=== PATIENT | male | born 1940 | race Caucasian/White ===

== ENCOUNTER 2016-09-15 15:28 | Emergency (ER) | payer MEDICARE ==
[~2016-09-15] VITALS: Ht 182.9 cm; Wt 81.6 kg
[~2016-09-15 15:28] MED LIST: /GLYB5TA OR; ACET65TA OR; AMLO5TAB PO; ASPI325T OR; CALCTAB41 PO; CHRO200C PO; CIPRHCOTIC AS; FAMO40TA2 OR; FERR324T5 OR; FISH5CAP PO; FOLI1TAB OR; GEMF600T OR; GLUC1000 OR; HYDR-3713 PO; IBUP200T45 PO; JANU100T PO; LANTINJ4 SC; LIDO1OIN2 TOP; LOPR50TA OR; METO25TA74 PO; OYST500T OR; SPIR25TA2 OR; TYLETAB14 PO; ZANT150T OR; [UNRECOGNIZED DRUG - CODE] PO; advil
[2016-09-15] MEDS ORDERED: GEMF600T (15:45)
[2016-09-15] MEDS ORDERED: ASPI1TAB PO (15:45)
[2016-09-15] MEDS ORDERED: ASPIRIN 325 MG TAB PO ONE (16:00)
[2016-09-15 16:03] LABS: EOS # 0.1 K/mm3 (0.0-0.50); EOS % 1.6 % (0.0-3.0); LARGE UNSTAINED CELL # 0.2 K/mm3 (0.0-0.4); LYMPH % 37.4 % (24.0-44.0); MEAN CORPUSCULAR HEMOGLOBIN 31.1 pg (27.0-33.0); MEAN CORPUSCULAR HGB CONC 34.8 g/dl (32.0-36.5); MEAN CORPUSCULAR VOLUME 89.4 fl (80.0-96.0); MONO # 0.3 K/mm3 (0.0-0.8); MONO % 5.1 % (0.0-5.0); NEUTROPHILS # 2.6 K/mm3 (1.8-7.7); NEUTROPHILS % 51.9 % (36.0-66.0); PLATELET COUNT, AUTOMATED 249 k/mm3 (150-450); RED CELL DISTRIBUTION WIDTH 12.5 % (11.5-14.5)
[2016-09-15 16:18] LABS: INR 0.94
[2016-09-15 16:27] LABS: ANION GAP 8 MEQ/L (8-16); BLOOD UREA NITROGEN 24 MG/DL (7-18); CALCIUM LEVEL 9.6 MG/DL (8.8-10.2); CARBON DIOXIDE LEVEL 25 MEQ/L (21-32); CHLORIDE LEVEL 102 MEQ/L (98-107); CREATININE FOR GFR 1.32 MG/DL (0.70-1.30); GLOMERULAR FILTRATION RATE 55.8 (>42); GLUCOSE, FASTING 209 MG/DL (83-110); POTASSIUM SERUM 4.1 MEQ/L (3.5-5.1); SODIUM LEVEL 135 MEQ/L (136-145)
--- NOTE | 2016-09-15 17:41 | REP ---
CHEST, TWO VIEWS: Two views of the chest are performed. There is no evidence of acute infiltrate. Heart is normal in size. There is calcification and tortuosity of the thoracic aorta. Mediastinal silhouette is unchanged. Multiple sternal wires are present. There are degenerative changes of the spine. IMPRESSION: No acute infiltrate. Signed by Ryley Hernandez MD 09/15/2016 08:06 P
[2016-09-15 23:13] VITALS: BP 146/71
--- NOTE | 2016-09-16 16:18 | ECGEPIP ---
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
== END 2016-09-15 23:17 | disposition home or self-care (01) ==
LOC: M ED 16:56
DX: R07.89 Other chest pain (principal); E10.9 Type 1 diabetes mellitus without complications; I10 Essential (primary) hypertension; Z95.1 Presence of aortocoronary bypass graft; Z79.899 Other long term (current) drug therapy; Z79.82 Long term (current) use of aspirin; Z79.4 Long term (current) use of insulin; Z79.84 Long term (current) use of oral hypoglycemic drugs; Z88.0 Allergy status to penicillin; Z88.8 Allergy status to other drugs, medicaments and biological substances

== ENCOUNTER → 2016-11-14 | Outpatient (REF) | payer MEDICARE ==
[~2016-11-14] MED LIST changes: +ASPI1TAB PO; +GEMF600T; +METO1TAB32 PO; -METO25TA74 PO
[2016-11-14 13:31] LABS: ALBUMIN 4.1 GM/DL (3.2-5.2); ALBUMIN/GLOBULIN RATIO 1.21 (1.00-1.93); ALKALINE PHOSPHATASE 56 U/L (45-117); ALT/SGPT 33 U/L (12-78); ANION GAP 8 MEQ/L (8-16); AST/SGOT 20 U/L (15-37); BILIRUBIN,TOTAL 0.4 MG/DL (0.2-1.0); BLOOD UREA NITROGEN 22 MG/DL (7-18); CARBON DIOXIDE LEVEL 26 MEQ/L (21-32); CHLORIDE LEVEL 102 MEQ/L (98-107); CREATININE FOR GFR 1.17 MG/DL (0.70-1.30); GLOMERULAR FILTRATION RATE > 60.0 (>42); GLUCOSE, FASTING 277 MG/DL (83-110); POTASSIUM SERUM 4.7 MEQ/L (3.5-5.1); SODIUM LEVEL 136 MEQ/L (136-145); TOTAL PROTEIN 7.5 GM/DL (6.4-8.2)
== END ==
LOC: M SFHCCLAY 09:13
PROVIDERS: ATTEND Family Medicine
DX: E11.51 Type 2 diabetes mellitus with diabetic peripheral angiopathy without gangrene (principal)
CPT/HCPCS: 80053; 83036; G0463

== ENCOUNTER → 2017-02-15 | Outpatient (REF) | payer MEDICARE ==
[2017-02-15 12:35] LABS: ALBUMIN 4.3 GM/DL (3.2-5.2); ALKALINE PHOSPHATASE 53 U/L (45-117); ALT/SGPT 38 U/L (12-78); ANION GAP 10 MEQ/L (8-16); AST/SGOT 24 U/L (15-37); BILIRUBIN,TOTAL 0.4 MG/DL (0.2-1.0); BLOOD UREA NITROGEN 23 MG/DL (7-18); CALCIUM LEVEL 10.1 MG/DL (8.8-10.2); CARBON DIOXIDE LEVEL 24 MEQ/L (21-32); CHLORIDE LEVEL 103 MEQ/L (98-107); CREATININE FOR GFR 1.17 MG/DL (0.70-1.30); GLOMERULAR FILTRATION RATE > 60.0 (>42); GLUCOSE, FASTING 142 MG/DL (83-110); POTASSIUM SERUM 4.1 MEQ/L (3.5-5.1); SODIUM LEVEL 137 MEQ/L (136-145); TOTAL PROTEIN 8.2 GM/DL (6.4-8.2)
== END ==
LOC: M SFHCCLAY 07:55
PROVIDERS: ATTEND Family Medicine
DX: E11.51 Type 2 diabetes mellitus with diabetic peripheral angiopathy without gangrene (principal)
CPT/HCPCS: 80053; 83036; G0463

== ENCOUNTER → 2017-03-15 | Outpatient (REF) | payer MEDICARE ==
[2017-03-15 18:11] LABS: ALBUMIN 4.2 GM/DL (3.2-5.2); ALBUMIN/GLOBULIN RATIO 1.14 (1.00-1.93); BILIRUBIN,TOTAL 0.5 MG/DL (0.2-1.0); CREATININE FOR GFR 1.25 MG/DL (0.70-1.30); GLOMERULAR FILTRATION RATE 59.5 (>42); POTASSIUM SERUM 4.3 MEQ/L (3.5-5.1); TOTAL PROTEIN 7.9 GM/DL (6.4-8.2)
== END ==
LOC: M LAB REF 17:14
PROVIDERS: ATTEND Internal Medicine Cardiovascular Disease
DX: I25.10 Atherosclerotic heart disease of native coronary artery without angina pectoris (principal); E78.5 Hyperlipidemia, unspecified

== ENCOUNTER → 2017-05-18 | Outpatient (REF) | payer MEDICARE ==
[2017-05-18 11:48] LABS: ANION GAP 9 MEQ/L (8-16); BLOOD UREA NITROGEN 20 MG/DL (7-18); CALCIUM LEVEL 10.1 MG/DL (8.8-10.2); CARBON DIOXIDE LEVEL 24 MEQ/L (21-32); CHLORIDE LEVEL 104 MEQ/L (98-107); CREATININE FOR GFR 1.14 MG/DL (0.70-1.30); GLOMERULAR FILTRATION RATE > 60.0 (>42); GLUCOSE, FASTING 166 MG/DL (83-110); POTASSIUM SERUM 4.2 MEQ/L (3.5-5.1); SODIUM LEVEL 137 MEQ/L (136-145)
[2017-05-18 12:17] LABS: ESTIMATED AVERAGE GLUCOSE 183 MG/DL (60-110)
== END ==
LOC: M SFHCCLAY 08:02
DX: E11.51 Type 2 diabetes mellitus with diabetic peripheral angiopathy without gangrene (principal)
CPT/HCPCS: 83036

== ENCOUNTER → 2017-11-13 | Outpatient (REF) | payer MEDICARE ==
[2017-11-13 16:33] LABS: ANION GAP 8 MEQ/L (8-16); BLOOD UREA NITROGEN 32 MG/DL (7-18); CALCIUM LEVEL 9.9 MG/DL (8.8-10.2); CARBON DIOXIDE LEVEL 23 MEQ/L (21-32); CHLORIDE LEVEL 107 MEQ/L (98-107); CREATININE FOR GFR 1.41 MG/DL (0.70-1.30); GLOMERULAR FILTRATION RATE 51.6 (>42); GLUCOSE, FASTING 169 MG/DL (70-100); POTASSIUM SERUM 4.8 MEQ/L (3.5-5.1); SODIUM LEVEL 138 MEQ/L (136-145)
[2017-11-13 16:42] LABS: ESTIMATED AVERAGE GLUCOSE 180 MG/DL (60-110); HEMOGLOBIN A1c 7.9 %
== END ==
LOC: M SFHCCLAY 14:07
DX: E11.51 Type 2 diabetes mellitus with diabetic peripheral angiopathy without gangrene (principal)
CPT/HCPCS: 83036

== ENCOUNTER → 2018-02-25 | Outpatient (REF) | payer MEDICARE ==
[2018-02-25 13:13] LABS: ESTIMATED AVERAGE GLUCOSE 160 MG/DL (60-110); HEMOGLOBIN A1c 7.2 %
[2018-02-25 13:14] LABS: ALBUMIN 4.3 GM/DL (3.2-5.2); ALBUMIN/GLOBULIN RATIO 1.16 (1.00-1.93); ALKALINE PHOSPHATASE 60 U/L (45-117); ALT/SGPT 39 U/L (12-78); ANION GAP 8 MEQ/L (8-16); AST/SGOT 24 U/L (7-37); BILIRUBIN,TOTAL 0.4 MG/DL (0.2-1.0); BLOOD UREA NITROGEN 26 MG/DL (7-18); CALCIUM LEVEL 9.9 MG/DL (8.8-10.2); CARBON DIOXIDE LEVEL 26 MEQ/L (21-32); CHLORIDE LEVEL 101 MEQ/L (98-107); GLOMERULAR FILTRATION RATE > 60.0 (>42); GLUCOSE, FASTING 148 MG/DL (70-100); POTASSIUM SERUM 4.9 MEQ/L (3.5-5.1); SODIUM LEVEL 135 MEQ/L (136-145)
== END ==
LOC: M SFHCCLAY 09:19
DX: E11.51 Type 2 diabetes mellitus with diabetic peripheral angiopathy without gangrene (principal)
CPT/HCPCS: 80053

== ENCOUNTER → 2018-05-08 | Outpatient (REF) | payer MEDICARE ==
[~2018-05-08] MED LIST changes: +AMLO10TA5 PO; +BACT800T5 PO; -CHRO200C PO; +CHRO200C2 PO; +DOXY100T PO; -GEMF600T; +GEMF600T5 PO; +GLIP5TAB8 PO; +METF-877 PO; +METO25TA4 PO; +OMEG10002 PO; +PERCOCET PO; +SPIR-10 PO; +VITMTA PO; +[UNRECOGNIZED DRUG - CODE] PO; -[UNRECOGNIZED DRUG - CODE] PO
[2018-05-09 12:05] LABS: HEMATOCRIT 39.7 % (42.0-52.0); HEMOGLOBIN 13.5 g/dl (13.5-17.5); MEAN CORPUSCULAR HEMOGLOBIN 30.2 pg (27.0-33.0); MEAN CORPUSCULAR VOLUME 88.8 fl (80.0-96.0); PLATELET COUNT, AUTOMATED 373 10^3/uL (150-450); RED BLOOD COUNT 4.47 10^6/uL (4.30-6.10); WHITE BLOOD COUNT 12.2 10^3/uL (4.0-10.0)
[2018-05-09 12:21] LABS: ALBUMIN 3.7 GM/DL (3.2-5.2); ALT/SGPT 38 U/L (12-78); BILIRUBIN,TOTAL 0.3 MG/DL (0.2-1.0); BLOOD UREA NITROGEN 22 MG/DL (7-18); CALCIUM LEVEL 9.8 MG/DL (8.8-10.2); CARBON DIOXIDE LEVEL 24 MEQ/L (21-32); CHLORIDE LEVEL 100 MEQ/L (98-107); CREATININE FOR GFR 1.23 MG/DL (0.70-1.30); GLOMERULAR FILTRATION RATE > 60.0 (>42); GLUCOSE, FASTING 293 MG/DL (70-100); POTASSIUM SERUM 4.5 MEQ/L (3.5-5.1); SODIUM LEVEL 132 MEQ/L (136-145); TOTAL PROTEIN 8.2 GM/DL (6.4-8.2); URIC ACID 3.8 MG/DL (3.5-7.2)
[2018-05-09 12:34] LABS: ERYTHROCYTE SEDIMENTATION RATE 63 mm/hr (0-20)
[2018-05-09 13:05] LABS: ATYPICAL LYMPH 16 % (0-5); EOSINOPHILS 1 % (0-5); LYMPHOCYTES 7 % (16-52); MONOCYTES 7 % (0-8); NEUTROPHILS 65 % (35-75); PLATELET ESTIMATE NORMAL (NORMAL)
== END ==
LOC: M SFHCCLAY 14:01
PROVIDERS: ATTEND Family Medicine
DX: L03.119 Cellulitis of unspecified part of limb (principal)
CPT/HCPCS: 80053; 84550; 85025; 85652; G0463

== ENCOUNTER 2018-05-13 14:56 | Inpatient (IN) | payer MEDICARE ==
[~2018-05-13] VITALS: Ht 182.9 cm; Wt 73.0 kg
[~2018-05-13 14:56] MED LIST changes: -AMLO10TA5 PO; -BACT800T5 PO; -GLIP5TAB8 PO; -METF-877 PO; -METO25TA4 PO; -OMEG10002 PO; -SPIR-10 PO; -VITMTA PO
[2018-05-13 16:15] VITALS: BP 140/69
[2018-05-13] MEDS ORDERED: AMLO10TA5 PO (16:47)
[2018-05-13] MEDS ORDERED: SPIR-10 PO (16:47)
[2018-05-13] MEDS ORDERED: BACT800T5 PO (16:47)
[2018-05-13] MEDS ORDERED: METF-877 PO (16:47)
[2018-05-13] MEDS ORDERED: GLIP5TAB8 PO ×2 (16:47)
[2018-05-13] MEDS ORDERED: METO25TA4 PO (16:50)
[2018-05-13] MEDS ORDERED: OMEG10002 PO (16:51)
[2018-05-13] MEDS ORDERED: VITMTA PO (16:51)
[2018-05-13] MEDS ORDERED: DEXTROSE 50% 50 ML SYRINGE IV PRN (17:15)
[2018-05-13] MEDS ORDERED: VANCOMYCIN HCL 1,000 MG, VIAL MATE ADAPTER 1 EACH in D5W 250 ML IV ONE (17:15)
[2018-05-13] MEDS ORDERED: GLUCOSE 4 GM CHEW TABLET PO PRN (17:15)
[2018-05-13] MEDS ORDERED: GLUCAGON FOR INJ 1 MG VIAL (J1610) SC PRN (17:15)
[2018-05-13 18:22] LABS: BASO % 0.2 % (0.0-1.0); EOS # 0.1 10^3/uL (0.0-0.50); EOS % 0.7 % (0.0-3.0); HEMATOCRIT 38.4 % (42.0-52.0); HEMOGLOBIN 13.3 g/dl (13.5-17.5); LYMPH # 1.1 10^3/uL (1.5-4.5); LYMPH % 11.8 % (24.0-44.0); MEAN CORPUSCULAR HGB CONC 34.6 g/dl (32.0-36.5); MEAN CORPUSCULAR VOLUME 86.5 fl (80.0-96.0); MONO # 0.6 10^3/uL (0.0-0.8); MONO % 6.2 % (0.0-5.0); NEUTROPHILS # 7.8 10^3/uL (1.8-7.7); NEUTROPHILS % 80.6 % (36.0-66.0); PLATELET COUNT, AUTOMATED 405 10^3/uL (150-450); RED BLOOD COUNT 4.44 10^6/uL (4.30-6.10); WHITE BLOOD COUNT 9.7 10^3/uL (4.0-10.0)
[2018-05-13 18:32] LABS: CALCIUM LEVEL 10.6 MG/DL (8.8-10.2); CREATININE FOR GFR 1.32 MG/DL (0.70-1.30); GLOMERULAR FILTRATION RATE 55.7 (>42); POTASSIUM SERUM 4.6 MEQ/L (3.5-5.1)
[2018-05-13] MEDS: HumaLOG INSULIN (NovoLOG) PER UNIT SC SCH ×2 (18:34→21:02)
--- NOTE | 2018-05-13 18:51 | REP ---
Left foot series: Four views. History: Diabetic wound. Findings: Four views of the left foot show overall normal mineralization. There is fairly extensive distal arterial vascular calcification in the forefoot. There is soft tissue irregularity at the medial aspect of the great toe adjacent to the proximal phalanx. No soft tissue gas is seen. No acute bony erosive change is noted. Overlying dressing artifact is seen. Impression: Area of soft tissue irregularity and thinning at the medial aspect of the proximal phalanx of great toe may be an ulcer. Vascular calcification. No acute bony abnormality. Electronically Signed by Kolton Leahy MD 05/13/2018 07:50 P
--- NOTE | 2018-05-13 20:06 | HPEPDOC ---
General Date of Admission May 13, 2018 at 16:01 Primary Care Physician: Mohinder Orr Attending Physician: SVITLANA HERNANDEZ MD Chief Complaint The patient is a 77-year-old male admitted with a reason for visit of Diabetic Foot Infection. Source: Patient, Family, RN notes reviewed, Old records Exam Limitations: No limitations History of Present Illness Mr. Yoo is a 77-year-old male who presents to [facility] as a direct admission from podiatry's office for left hallux diabetic wound infection. Patient is accompanied by and daughter. 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 Patient states that approximately 3 weeks ago he possibly stubbed his left great toe on tach. He removed his socks and slippers at that time and noticed some blood on his upper. He presented to emergency department in [place] and was treated for possible gout infection as his left toe was swollen and red. He was informed that if his symptoms were no better in 3 days to follow-up with his primary care provider which he did. His daughter evaluated his rate and swollen left toe joint around ' and suggested that he follow-up with his primary care provider. He did so and received an oral antibiotic on 05/08/2018, Bactrim twice daily. His daughter continue to evaluate his left toe and she noted on yesterday that there was about a quarter-sized open wound on the lateral aspect of his left great toe. She also noted a black spot in the center of the wound. It was never malodorous. She suggested that he follow-up with his primary care provider and he stated that he had appointment the next day. Patient presented to his primary care provider in 05/13/2018 and was recommended to have an immediate visit with podiatry which was controlled for today. Patient followed up with podiatry and was encouraged to present to the hospital for further evaluation and treatment. Patient is aware that he may require an amputation. Patient states that he had a quadruple bypass CABG procedure in 2011. He presented to his primary care provider at that time with some shortness of breath and was subsequently evaluated by cardiology. Underwent a cardiac catheterization with subsequent open heart surgery. Patient follows with local residential program manager with most recent stress testing done just over a year ago. Patient is not aware of any lung disease. He does have a history of working in a [employer] and in the [employer]. Prior to his wound on the left toe patient had no difficulty with ambulation and is able to walk up and down a flight of stairs without shortness of breath or walk around the grocery store without developing shortness of breath. He does not use any assistive devices. He makes urine without difficulty. Hospitalist was consulted at the request of podiatry to manage patient's comorbidities. Home Medications Scheduled (Metformin Hydrochloride) 1,000 Mg Tab, 1,000 MG PO BID, (Reported) Amlodipine Besylate (Amlodipine Besylate) 10 Mg Tab, 10 MG PO DAILY, (Reported) Arginine (l-Arginine) 1,000 Mg Tab, 1,000 MG PO TID, (Reported) Aspirin (Aspirin 81) 81 Mg Tab, 81 MG PO DAILY, (Reported) Gemfibrozil (Gemfibrozil) 600 Mg Tab, 600 MG PO BID, (Reported) Glipizide (Glipizide) 5 Mg Tab, 10 MG PO QAM, (Reported) Glipizide (Glipizide) 5 Mg Tab, 5 MG PO QPM, (Reported) Insulin Glargine (Lantus Solostar) 100 Unit/Ml Inj, 22 UNITS SC QPM, (Reported) Metoprolol Tartrate (Metoprolol Tartrate) 25 Mg Tab, 25 MG PO DAILY, (Reported) Multivitamins *[facility] STOCKED* (Thera M Plus *[facility] STOCKED*) 1 Tab Tab, 1 TAB PO DAILY, (Reported) [place] 3 Polyunsat Fatty Acids ([place]-3 1000 mg) 1 Cap Cap, 1 CAP PO DAILY, (Reported) Spironolactone (Spironolactone) 25 Mg Tab, 25 MG PO DAILY, (Reported) Trimethoprim/Sulfamethoxazole (Bactrim Ds 800-160 mg) 1 Tab Tab, 1 TAB PO BID, (Reported) Scheduled PRN Ibuprofen (Ibu-200) 200 Mg Tab, 600 MG PO BID PRN for PAIN, (Reported) Allergies Coded Allergies: Penicillins (Verified Allergy, Intermediate, RASH, 04/13/15) Penicillins Cross Reactors (Verified Allergy, Unknown, 04/13/15) Atorvastatin (Verified Adverse Reaction, Intermediate, LEG PAIN, 04/13/15) Past Medical History Medical History 1. Diabetes mellitus 2. Hypertension 3. Dyslipidemia 4. Grade 1 diastolic dysfunction 5. History of melanoma 6. History of basal cell carcinoma with metastasis to lymph nodes 7. History of Crohn's a carcinoma 8. Coronary artery disease status post coronary artery bypass grafting Surgical History 1. Right cheek lesion excision 2. Skin forearm lesion excision 3. Quadruple coronary artery bypass graft 4. Back surgeries 5. Bilateral cataracts Family History Father is at age 92 from unknown underlying lung disease. Mother is at age 60 from complications of tobacco and alcohol dependence. Patient has 6 siblings, all from different fathers. Patient is unaware of any significant medical history. Social History * Smoker: Denies Alcohol: Denies Patient lives independently with his of 60 years. They have 4 adult daughters who are all alive and healthy. There are no pets in the home. Patient does not drink alcohol. Patient does not use illicit drugs. Patient is a former tobacco user. He started smoking at age 12 and quit in 1968. He smoked anywhere from 1-1-1/2 packs per day. He was a smoked a pipe and cigars. Patient previously worked in a [employer] and in the [employer]. Review of Systems Constitutional: Denies: Chills, Fever, Night Sweats, Weakness, Weight Loss Eyes: Denies: Vision change ENT: Denies: Head Aches, Dysphagia, Sinus Congestion, Post Nasal Drip, Sore Throat, Epistaxis Skin: Reports: Lesions (left hallux); Denies: Rash, Bruising Pulmonary: Denies: Dyspnea, Cough, Pleuritic Chest Pain Cardiovascular: Denies: Chest Pain, Palpitations, Orthopnea, Paroxysmal Noc. Dyspnea, Edema, Lt Headedness Gastrointestinal: Denies: Nausea, Vomiting, Abdominal Pain, Diarrhea, Constipation, Melena, Hematochezia Genitourinary: Denies: Dysuria, Frequency, Incontinence, Hematuria Hematologic: Denies: Bruising, Bleeding Excessively Endocrine: Denies: Polydipsia, Polyphagia Musculoskeletal: Denies: Neck Pain, Back Pain, Joint Pain, Muscle Pain Neurological: Denies: Weakness, Numbness Physical Examination General Exam: Positive: Alert, Cooperative, No Acute Distress Eye Exam: Positive: PERRLA, Conjunctiva & lids normal, EOMI; Negative: Sclera icteric, Ptosis ENT Exam: Positive: Atraumatic, Mucous membr. moist/pink, Pharynx Normal, Tongue Midline, Nares Patent; Negative: Pharyngeal Edema Neck Exam: Positive: Supple, +2 carotid pulse wo bruit; Negative: JVD, thyromegaly, Lymphadenopathy Chest Exam: Positive: Clear to auscultation, Normal air movement; Negative: Rales, Rhonchi, Wheezing, Diminished Heart Exam: Positive: Rate Normal, Bradycardic, Regular Rhythm, Normal S1, Norm al S2; Negative: Gallops, Murmurs, Rubs Abdomen Exam: Positive: Normal bowel sounds, Soft; Negative: Tenderness, Hepatospenomegaly, Mass, Hernia Extremity Exam: Positive: Normal pulses, Other (approximately dime-sized stage III wound ulcer noted on the anterior/lateral portion of the left hallux with surrounding edema and blood pooling with skin sloughing. There does appear to be granulation tissue in the wound bed. No current discharge or bleeding is noted.); Negative: Clubbing, Cyanosis, Edema, Tenderness, Swelling Skin Exam: Positive: Lesion (petechia surrounding and extending up onto the left foot) Neuro Exam: Positive: Normal Speech, Cranial Nerves 3-12 NL Psych Exam: Positive: Oriented x 3 Other physical findings Left complete foot x-ray on 05/13/2018 - soft tissue irregularity and thinning at the medial aspect of the proximal falx of the great toe. Vascular calcification. No acute bony abnormality. Vital Signs Vital Signs Date Time Temp Pulse Resp B/P (MAP) Pulse Ox O2 Delivery O2 Flow Rate FiO2 05/13/18 16:15 97.5 76 18 140/69 (92) 97 Room Air Laboratory Data Labs 24H Laboratory Tests 2 05/13/18 17:39: Bedside Glucose (Misc Panel) 228H 05/13/18 17:59: Immature Granulocyte % (Auto) 0.5, White Blood Count 9.7, Red Blood Count 4.44, Hemoglobin 13.3L, Hematocrit 38.4L, Mean Corpuscular Volume 86.5, Mean Corpusc ular Hemoglobin 30.0, Mean Corpuscular Hemoglobin Concent 34.6, Red Cell Distribution Width 11.4L, Platelet Count 405, Neutrophils (%) (Auto) 80.6H, Lymphocytes (%) (Auto) 11.8L, Monocytes (%) (Auto) 6.2H, Eosinophils (%) (Auto) 0.7, Basophils (%) (Auto) 0.2, Neutrophils # (Auto) 7.8H, Lymphocytes # (Auto) 1.1L, Monocytes # (Auto) 0.6, Eosinophils # (Auto) 0.1, Basophils # (Auto) 0.0, Nucleated Red Blood Cells % (auto) 0.0, Anion Gap 8, Glomerular Filtration Rate 55.7, Blood Urea Nitrogen 20H, Creatinine 1.32H, Sodium Level 129L, Potassium Level 4.6, Chloride Level 96L, Carbon Dioxide Level 25, Calcium Level 10.6H, C- Reactive Protein, Quantitative 5.39H 05/13/18 18:00: Erythrocyte Sedimentation Rate 44H CBC/BMP Laboratory Tests 05/13/18 17:59 Red Blood Count 4.44, Mean Corpuscular Volume 86.5, Mean Corpuscular Hemoglobin 30.0, Mean Corpuscular Hemoglobin Concent 34.6, Red Cell Distribution Width 11.4 L, Neutrophils (%) (Auto) 80.6 H, Lymphocytes (%) (Auto) 11.8 L, Monocytes (%) (Auto) 6.2 H, Eosinophils (%) (Auto) 0.7, Basophils (%) (Auto) 0.2, Neutrophils # (Auto) 7.8 H, Lymphocytes # (Auto) 1.1 L, Monocytes # (Auto) 0.6, Eosinophils # (Auto) 0.1, Basophils # (Auto) 0.0, Calcium Level 10.6 H Microbiology Microbiology 05/13/18 Blood Culture, Received Pending Plan / VTE VTE Prophylaxis Ordered?: Yes (TEDs, sequentials, knee-high compression) Plan Plan 1. Diabetic wound ulcer: Podiatry consulted. Aztreonam and vancomycin. Patient has penicillin allergy. Pharmacy to renally dose antibiotics. MRSA screen ordered. Left foot x-ray reveals possible ulcer. Wound cultures were obtained in switchboard manager's office. Blood culture pending. ESR and CRP ordered with both being elevated. Daily CRPs ordered. No white count noted. Patient is afebrile. Tylenol as needed for pain. 2. Renal insufficiency: Could be secondary to dehydration. Holding nephrotoxic agents at this time. Monitor daily. 3. Hypercalcemia: Incidentally noted on labs. Has previously been normal. 4. Hyponatremia: Serum and urine osmolality ordered. 5. Hypertension: Continue amlodipine and metoprolol. Will hold spironolactone due to renal insufficiency. 6. Diabetes mellitus: Continue Levemir 22 units subcutaneous every afternoon, fingersticks before meals and at bedtime, hypoglycemic protocol, and consistent carbohydrate diet. Holding glipizide and metformin. 7. Coronary artery disease status post coronary artery bypass grafting: Holding aspirin. 8. Dyslipidemia: Holding gemfibrozil. Disposition Admit: Medical surgical unit Anticipated hospitalization: 2 nights Attending: Dr. Francisco Diet: Continue Current (consistent carbohydrate) Activity: Continue Current Medications: Start Antibiotics (vancomycin 1,000 mg, aztreonam 1 g IV every 8 hours) Diagnostics: Check Labs, Repeat Labs in AM, Obtain Cultures (blood cultures), Xrays (left foot x-ray) Anticipated Discharge: Home Attending Note Attending Note I have both independently examined this patient as well as reviewed the H and P. I have discussed in detail w the resident the findings and the plan of treatment as documented in the residents note. MICHAEL GRESHAM DO May 13, 2018 20:06 SVITLANA HERNANDEZ MD May 15, 2018 21:58
--- NOTE | 2018-05-13 20:42 | ECGEPIP ---
Stationary ECG Study [facility] Test Date: 2018-05-13 Pat Name: EYAD REED Department: Room: [place] [address] Gender: M Internal Sales Engineer: GARRISON : 1940 Requested By: MICHAEL GRESHAM Order Number: [id number] Reading MD: Roosevelt Horne Measurements Intervals [place] Rate: 74 P: 56 NC: 171 QRS: 40 QRSD: 77 T: 0 QT: 213 QTc: 236 Interpretive Statements SINUS RHYTHM Baseline noise and baseline wander. Poor R wave progression. NONSPECIFIC ST & T-WAVE ABNORMALITY Electronically Signed On 05-13-2018 20:42:11 EST by Roosevelt Horne
[2018-05-13] MEDS: AZTREONAM 1 GM in D5W MINI-BAG PLUS 50 ML IV SCH (20:57)
[2018-05-13] MEDS ORDERED: LEVEMIR (INSULIN DETEMIR) 1 UNITS/0.01ML SC SCH (21:00)
[2018-05-13 21:09] LABS: PTH INTACT 13.8 PG/ML (18.5-88.0)
--- NOTE | 2018-05-13 21:45 | PHACANCOPD ---
PHARMACY VANCOMYCIN DOSING Pt Demographics Demographics Patient Age:77 , Weight:81.700 , Gender: male Events Past 24 Hours Events Past 24 Hours: NO: Dialysis, Diuretic Therapy, Change in CrCl, Fever, Elevation in WBC, Pending Diagnostics, Pending Procedures, Other Vancomycin Vancomycin indication: DIABETIC FOOT Vancomycin Target Ranges: 10-20 mcg/ml Vancomycin Load Y/N: No Load Dose Date Time Vancomycin Load Dose: 1GM Date: 05/13/18 Time: 19:00 Vancomycin Dose Date: 05/14/18. Current Vancomycin Dose: [1GM IV Q12H (05:00)] Intermittent Dosing?: No Labs Labs Laboratory Tests 05/13/18 17:59 Red Blood Count 4.44, Mean Corpuscular Volume 86.5, Mean Corpuscular Hemoglobin 30.0, Mean Corpuscular Hemoglobin Concent 34.6, Red Cell Distribution Width 11.4 L, Neutrophils (%) (Auto) 80.6 H, Lymphocytes (%) (Auto) 11.8 L, Monocytes (%) (Auto) 6.2 H, Eosinophils (%) (Auto) 0.7, Basophils (%) (Auto) 0.2, Neutrophils # (Auto) 7.8 H, Lymphocytes # (Auto) 1.1 L, Monocytes # (Auto) 0.6, Eosinophils # (Auto) 0.1, Basophils # (Auto) 0.0, Calcium Level 10.6 H Micro Microbiology 05/13/18 Blood Culture, Received Pending Creatinine Clearance Date:05/13/18. Creatinine Clearance: [50]. Assessment and Plan Maintaining Current Dose?: Yes Reason for dose change: Other Pharmacist Note Pharmacist Note Date: 05/13/18. PharmD note: VANCO 1GM IV x1 per ATTENDING RESIDENT. WE WILL CO NTINUE WITH VANCO 1GM IV Q12H STARTING AT 5AM 8 VANCO TROUGH WHEN AT [facility] May 13, 2018 21:45
[2018-05-13 22:00] VITALS: BP 128/69
[2018-05-14] MEDS: AZTREONAM 1 GM in D5W MINI-BAG PLUS 50 ML IV SCH ×3 (04:26→20:10)
[2018-05-14] MEDS: VANCOMYCIN HCL 1,000 MG, VIAL MATE ADAPTER 1 EACH in D5W 250 ML IV SCH ×2 (05:09→17:28)
[2018-05-14 06:00] VITALS: BP 116/60
[2018-05-14 06:44] LABS: BASO % 0.3 % (0.0-1.0); EOS # 0.1 10^3/uL (0.0-0.50); EOS % 1.2 % (0.0-3.0); HEMATOCRIT 35.2 % (42.0-52.0); HEMOGLOBIN 12.1 g/dl (13.5-17.5); LYMPH # 1.4 10^3/uL (1.5-4.5); MEAN CORPUSCULAR HEMOGLOBIN 29.9 pg (27.0-33.0); MEAN CORPUSCULAR HGB CONC 34.4 g/dl (32.0-36.5); MEAN CORPUSCULAR VOLUME 86.9 fl (80.0-96.0); MONO # 0.6 10^3/uL (0.0-0.8); MONO % 8.2 % (0.0-5.0); NEUTROPHILS # 5.3 10^3/uL (1.8-7.7); NEUTROPHILS % 70.6 % (36.0-66.0); PLATELET COUNT, AUTOMATED 387 10^3/uL (150-450); RED BLOOD COUNT 4.05 10^6/uL (4.30-6.10); WHITE BLOOD COUNT 7.4 10^3/uL (4.0-10.0)
[2018-05-14 07:04] LABS: BLOOD UREA NITROGEN 17 MG/DL (7-18); C REACTIVE PROTEIN QUANTITATIV 4.48 MG/DL (0.00-0.30); CALCIUM LEVEL 9.6 MG/DL (8.8-10.2); CARBON DIOXIDE LEVEL 25 MEQ/L (21-32); CHLORIDE LEVEL 98 MEQ/L (98-107); CREATININE FOR GFR 1.22 MG/DL (0.70-1.30); GLOMERULAR FILTRATION RATE > 60.0 (>42); GLUCOSE, FASTING 217 MG/DL (70-100); POTASSIUM SERUM 4.3 MEQ/L (3.5-5.1); SODIUM LEVEL 132 MEQ/L (136-145)
[2018-05-14] MEDS: HumaLOG INSULIN (NovoLOG) PER UNIT SC SCH ×4 (07:30→21:55)
[2018-05-14] MEDS: amLODIPine 10 MG TAB PO SCH (08:46)
[2018-05-14] MEDS: METOPROLOL TART 25 MG TABLET PO SCH (08:46)
[2018-05-14] MEDS ORDERED: SPIRONOLACTONE 25 MG TAB PO SCH (09:00)
--- NOTE | 2018-05-14 12:00 | CR ---
DATE OF CONSULTATION: 05/14/2018 REASON FOR CONSULTATION: Left foot infection. Patient was seen in my office yesterday with necrotic ulceration infection to his left hallux. He was sent to the hospital for admission for IV antibiotics with planned surgical intervention. He states he is feeling a little bit better today. PAST MEDICAL HISTORY: Significant for: Diabetes. Hypertension. Hyperlipidemia. Grade 1 diastolic dysfunction. History of melanoma. Basal cell carcinoma with metastasis to lymph nodes. History of squamous cell carcinoma. History of bypass grafting to the coronary artery. PAST SURGICAL HISTORY: Quadruple bypass graft. Back surgeries. Skin lesion excision. Cataracts. SOCIAL HISTORY: Denies smoking. REVIEW OF SYSTEMS: Denies nausea, vomiting fevers or chills. Vital signs are afebrile. Labs are reviewed. White blood cell count is 7.4, ESR on admission was 44. CRP is 4.48. Cultures taken in the office yesterday are pending. X-ray images show no soft tissue emphysema or signs of osteomyelitis. Lower extremity examination: Circumferential necrosis and eschar is present to the left hallux with extending erythema to the dorsal foot. ASSESSMENT: 77-year-old male with diabetes and gangrene to left hallux. PLAN: Patient is scheduled for the operating room (OR) tomorrow morning. He is to be nothing by mouth at midnight. Hold anticoagulation in the morning. Continue empiric antibiotics and await culture results. Will follow.
[2018-05-14 14:00] VITALS: BP 143/65
--- NOTE | 2018-05-14 16:05 | IPNPDOC ---
Subjective Date Seen The patient was seen on 05/14/18. Subjective Chief Complaint/HPI Patient seen and examined at the bedside. No acute overnight events noted. Patient scheduled for the OR with podiatry tomorrow. Objective Physical Examination General Exam: Positive: Alert, Cooperative, No Acute Distress ENT Exam: Positive: Atraumatic, Mucous membr. moist/pink Neck Exam: Negative: JVD Chest Exam: Positive: Clear to auscultation, Normal air movement Heart Exam: Positive: Rate Normal, Normal S1, Normal S2 Abdomen Exam: Positive: Soft; Negative: Tenderness Extremity Exam: Positive: Other (Left foot wrapped in surgical dressing, no superficial draining noted through dressing); Negative: Tenderness, Swelling Psych Exam: Positive: Oriented x 3 Assessment /Plan Plan/VTE VTE Prophylaxis Ordered?: Yes (TEDs, sequentials, knee-high compression) Plan Diabetic Foot Ulcer Podiatry on board for surgical intervention tomorrow AM Wound, Blood Cultures pending Cont Aztreonam and Vancomycin. We will cont to monitor and f/u with Podiatry recommendations. Chronic Kidney Disease Stage II-III Serum Cr at baseline Hypertension Continue amlodipine and metoprolol Diabetes mellitus Cont regimen as ordered Hx of Coronary artery disease status post coronary artery bypass grafting ASA on hold 2/2 Surgery Cont Metoprolol Not on Statin 2/2 Allergy DVT Prophylaxis SCDs/TEDs VS, I&O, 24H, Fishbone Vital Signs/I&O Vital Signs Date Time Temp Pulse Resp B/P (MAP) Pulse Ox O2 Delivery O2 Flow Rate FiO2 05/14/18 14:00 98.0 71 16 143/65 (91) 94 Room Air I&O- Last 24 Hours up to 6 AM0 05/14/18 06:00 Intake Total 600 ml Balance 600 ml Laboratory Data 24H LABS Laboratory Tests 2 05/13/18 17:39: Bedside Glucose (Misc Panel) 228H 05/13/18 17:59: Immature Granulocyte % (Auto) 0.5, White Blood Count 9.7, Red Blood Count 4.44, Hemoglobin 13.3L, Hematocrit 38.4L, Mean Corpuscular Volume 86.5, Mean Corpuscular Hemoglobin 30.0, Mean Corpuscular Hemoglobin Concent 34.6, Red Cell Distribution Width 11.4L, Platelet Count 405, Neutrophils (%) (Auto) 80.6H, Lymphocytes (%) (Auto) 11.8L, Monocytes (%) (Auto) 6.2H, Eosinophils (%) (Auto) 0.7, Basophils (%) (Auto) 0.2, Neutrophils # (Auto) 7.8H, Lymphocytes # (Auto) 1.1L, Monocytes # (Auto) 0.6, Eosinophils # (Auto) 0.1, Basophils # (Auto) 0.0, Nucleated Red Blood Cells % (auto) 0.0, Anion Gap 8, Glomerular Filtration Rate 55.7, Blood Urea Nitrogen 20H, Creatinine 1.32H, Sodium Level 129L, Potassium Level 4.6, Chloride Level 96L, Carbon Dioxide Level 25, Calcium Level 10.6H, C- Reactive Protein, Quantitative 5.39H 05/13/18 18:00: Erythrocyte Sedimentation Rate 44H 05/13/18 20:27: Osmolality 285, Parathyroid Hormone (Intact) 13.8L 05/13/18 20:59: Bedside Glucose (Misc Panel) 290H 05/14/18 06:19: Immature Granulocyte % (Auto) 0.7, White Blood Count 7.4, Red Blood Count 4.05L, Hemoglobin 12.1L, Hematocrit 35.2L, Mean Corpuscular Volume 86.9, Mean Corpuscular Hemoglobin 29.9, Mean Corpuscular Hemoglobin Concent 34.4, Red Cell Distribution Width 11.4L, Platelet Count 387, Neutrophils (%) (Auto) 70.6H, Lymphocytes (%) (Auto) 19.0L, Monocytes (%) (Auto) 8.2H, Eosinophils (%) (Auto) 1.2, Basophils (%) (Auto) 0.3, Neutrophils # (Auto) 5.3, Lymphocytes # (Auto) 1.4L, Monocytes # (Auto) 0.6, Eosinophils # (Auto) 0.1, Basophils # (Auto) 0.0, Nucleated Red Blood Cells % (auto) 0.0, Anion Gap 9, Glomerular Filtration Rate > 60.0, Blood Urea Nitrogen 17, Creatinine 1.22, Sodium Level 132L, Potassium Level 4.3, Chloride Level 98, Carbon Dioxide Level 25, Calcium Level 9.6, C- Reactive Protein, Quantitative 4.48H 05/14/18 11:50: Bedside Glucose (Misc Panel) 99 CBC/BMP Laboratory Tests 05/13/18 17:59 Red Blood Count 4.44, Mean Corpuscular Volume 86.5, Mean Corpuscular Hemoglobin 30.0, Mean Corpuscular Hemoglobin Concent 34.6, Red Cell Distribution Width 11.4 L, Neutrophils (%) (Auto) 80.6 H, Lymphocytes (%) (Auto) 11.8 L, Monocytes (%) (Auto) 6.2 H, Eosinophils (%) (Auto) 0.7, Basophils (%) (Auto) 0.2, Neutrophils # (Auto) 7.8 H, Lymphocytes # (Auto) 1.1 L, Monocytes # (Auto) 0.6, Eosinophils # (Auto) 0.1, Basophils # (Auto) 0.0, Calcium Level 10.6 H 05/14/18 06:19 Red Blood Count 4.05 L, Mean Corpuscular Volume 86.9, Mean Corpuscular Hemoglobin 29.9, Mean Corpuscular Hemoglobin Concent 34.4, Red Cell Distribution Width 11.4 L, Neutrophils (%) (Auto) 70.6 H, Lymphocytes (%) (Auto) 19.0 L, Monocytes (%) (Auto) 8.2 H, Eosinophils (%) (Auto) 1.2, Basophils (%) (Auto) 0.3, Neutrophils # (Auto) 5.3, Lymphocytes # (Auto) 1.4 L, Monocytes # (Auto) 0.6, Eosinophils # (Auto) 0.1, Basophils # (Auto) 0.0, Calcium Level 9.6 Microbiology Microbiology 05/13/18 Blood Culture, Received Pending 05/14/18 MRSA Screen, Received Pending DAGMAR HUDSON MD May 14, 2018 16:05
[2018-05-14] MEDS: LEVEMIR (INSULIN DETEMIR) 1 UNITS/0.01ML SC SCH (21:56)
[2018-05-14 22:00] VITALS: BP 119/66
[2018-05-15] VITALS (8 sets, daily range): BP systolic 113–149; BP diastolic 61–71
[2018-05-15] MEDS: AZTREONAM 1 GM in D5W MINI-BAG PLUS 50 ML IV SCH ×3 (03:49→21:13)
[2018-05-15] MEDS: VANCOMYCIN HCL 1,000 MG, VIAL MATE ADAPTER 1 EACH in D5W 250 ML IV SCH ×2 (05:21→22:47)
[2018-05-15 06:11] LABS: BASO % 0.3 % (0.0-1.0); EOS # 0.1 10^3/uL (0.0-0.50); HEMATOCRIT 36.4 % (42.0-52.0); HEMOGLOBIN 12.4 g/dl (13.5-17.5); LYMPH # 1.6 10^3/uL (1.5-4.5); LYMPH % 17.2 % (24.0-44.0); MEAN CORPUSCULAR HEMOGLOBIN 29.7 pg (27.0-33.0); MEAN CORPUSCULAR HGB CONC 34.1 g/dl (32.0-36.5); MEAN CORPUSCULAR VOLUME 87.3 fl (80.0-96.0); MONO # 0.5 10^3/uL (0.0-0.8); MONO % 5.1 % (0.0-5.0); NEUTROPHILS % 75.9 % (36.0-66.0); PLATELET COUNT, AUTOMATED 412 10^3/uL (150-450); RED BLOOD COUNT 4.17 10^6/uL (4.30-6.10); WHITE BLOOD COUNT 9.2 10^3/uL (4.0-10.0)
[2018-05-15 06:38] LABS: BLOOD UREA NITROGEN 20 MG/DL (7-18); C REACTIVE PROTEIN QUANTITATIV 3.13 MG/DL (0.00-0.30); CALCIUM LEVEL 9.3 MG/DL (8.8-10.2); CARBON DIOXIDE LEVEL 26 MEQ/L (21-32); CHLORIDE LEVEL 98 MEQ/L (98-107); GLOMERULAR FILTRATION RATE > 60.0 (>42); GLUCOSE, FASTING 208 MG/DL (70-100); POTASSIUM SERUM 4.3 MEQ/L (3.5-5.1); SODIUM LEVEL 131 MEQ/L (136-145)
[2018-05-15] MEDS: HumaLOG INSULIN (NovoLOG) PER UNIT SC SCH ×4 (07:30→21:12)
[2018-05-15] MEDS: METOPROLOL TART 25 MG TABLET PO SCH (08:45)
[2018-05-15] MEDS: amLODIPine 10 MG TAB PO SCH (08:45)
[2018-05-15] MEDS ORDERED: LIDOCAINE 1% SDV INJ 30 ML VIAL As Ordered ONE (09:37)
[2018-05-15] MEDS ORDERED: BUPIVACAINE HCL 0.5% 30 ML VIAL As Ordered ONE (09:37)
[2018-05-15] MEDS ORDERED: fentaNYL 100 MCG/2 ML INJECTION (J3010) As Ordered ONE (09:59)
[2018-05-15] MEDS ORDERED: PROPOFOL 200 MG/20 ML VIAL As Ordered ONE (09:59)
[2018-05-15] MEDS ORDERED: MIDAZOLAM INJ 2 MG/2 ML VIAL (J2250) As Ordered ONE (09:59)
--- NOTE | 2018-05-15 10:59 | RO ---
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 PROCEDURE: Left hallux amputation. SURGEON: Jd Burnette DPM SENIOR WRITER: None ANESTHESIA: Monitored anesthesia care with preoperative injection of 20 mL of 1:1 mixture of 1% lidocaine plain and 0.5% Marcaine plain. ESTIMATED BLOOD LOSS: Minimal. MATERIALS: None. COMPLICATION: None. SPECIMEN: Left hallux. CONDITION: Stable. Mello Yoo is a 77-year-old male who presented to [facility] with left hallux infection. He had gangrenous changes which affected the entire hallux. X-rays failed to show soft tissue gas or obvious osteomyelitis. A decision was made to bring him to the operating room for hallux amputation. The patient's side and site were identified and marked in the preoperative holding area. Consent was reviewed and obtained. All risks, complications, and alternatives to the procedure were explained to the patient in detail, and all questions were answered. DESCRIPTION OF PROCEDURE: The patient was brought to the operating room and placed on the operating table in supine position. Monitored anesthesia care was delivered by the anesthesia team. A preoperative injection of 20 mL of 1:1 mixture of 1% lidocaine plain and 0.5% Marcaine plain were injected to the left foot. The left foot was prepped and draped in normal sterile fashion. The tourniquet was applied but was not inflated during the procedure. The patient received his scheduled antibiotics this morning. The hallux was inspected. There was nearly circumferential necrotic tissue with the exception of the lateral border of the hallux. Using #15 blade, the hallux was disarticulated at the metatarsophalangeal joint and excised, leaving the small border of the lateral and distal portion of the hallux, which did have some viability intact. The site was then irrigated with saline. Necrotic tissue was removed with rongeur. The dorsal surface of the foot was inspected, and there was no extending gangrenous changes to this site. The site was again irrigated with normal saline. No further significant necrotic tissue was noted. The flap was irrigated, and dressings were applied. The patient was brought to postanesthesia care unit (PACU) with vital signs stable and neurovascular status intact. He will be readmitted to the floor for continued antibiotics. Will plan closure once infection further resolved. Will use skin flap if remains viable.
--- NOTE | 2018-05-15 13:01 | IPNPDOC ---
Subjective Date Seen The patient was seen on 05/15/18. Subjective Chief Complaint/HPI Patient seen and examined at the bedside. He is scheduled to undergo surgical intervention with podiatry this morning. Objective Physical Examination General Exam: Positive: Alert, Cooperative, No Acute Distress ENT Exam: Positive: Atraumatic, Mucous membr. moist/pink Neck Exam: Negative: JVD Chest Exam: Positive: Clear to auscultation, Normal air movement Heart Exam: Positive: Rate Normal, Normal S1, Normal S2 Abdomen Exam: Positive: Soft; Negative: Tenderness Extremity Exam: Positive: Other (Left foot wrapped in surgical dressing, no superficial draining noted through dressing); Negative: Tenderness, Swelling Psych Exam: Positive: Oriented x 3 Assessment /Plan Plan/VTE VTE Prophylaxis Ordered?: Yes (TEDs, sequentials, knee-high compression) Plan Diabetic Foot Ulcer Podiatry on board for surgical intervention this AM with podiatry Blood Culture unrevealing Wound culture pending Cont Aztreonam and Vancomycin. We will cont to monitor and f/u with Podiatry recommendations. Chronic Kidney Disease Stage II-III Serum Cr at baseline Hypertension Continue amlodipine and metoprolol Diabetes mellitus Cont regimen as ordered Hx of Coronary artery disease status post coronary artery bypass grafting ASA on hold 2/2 Surgery Cont Metoprolol Not on Statin 2/2 Allergy DVT Prophylaxis SCDs/TEDs VS, I&O, 24H, Fishbone Vital Signs/I&O Vital Signs Date Time Temp Pulse Resp B/P (MAP) Pulse Ox O2 Delivery O2 Flow Rate FiO2 05/15/18 12:00 97.8 57 16 133/71 (91) 94 Room Air 05/15/18 10:50 2 l I&O- Last 24 Hours up to 6 AM 05/15/18 06:00 Intake Total 600 ml Output Total 1000 ml Balance -400 ml Laboratory Data 24H LABS Laboratory Tests 2 05/14/18 16:52: Bedside Glucose (Misc Panel) 258H 05/14/18 21:41: Bedside Glucose (Misc Panel) 294H 05/15/18 05:29: Immature Granulocyte % (Auto) 0.5, White Blood Count 9.2, Red Blood Count 4.17L, Hemoglobin 12.4L, Hematocrit 36.4L, Mean Corpuscular Volume 87.3, Mean Corpuscular Hemoglobin 29.7, Mean Corpuscular Hemoglobin Concent 34.1, Red Cell Distribution Width 11.4L, Platelet Count 412, Neutrophils (%) (Auto) 75.9H, Ly mphocytes (%) (Auto) 17.2L, Monocytes (%) (Auto) 5.1H, Eosinophils (%) (Auto) 1.0, Basophils (%) (Auto) 0.3, Neutrophils # (Auto) 7.0, Lymphocytes # (Auto) 1.6, Monocytes # (Auto) 0.5, Eosinophils # (Auto) 0.1, Basophils # (Auto) 0.0, Nucleated Red Blood Cells % (auto) 0.0, Anion Gap 7L, Glomerular Filtration Rate > 60.0, Blood Urea Nitrogen 20H, Creatinine 1.10, Sodium Level 131L, Potassium Level 4.3, Chloride Level 98, Carbon Dioxide Level 26, Calcium Level 9.3, C- Reactive Protein, Quantitative 3.13H 05/15/18 09:25: Bedside Glucose (Misc Panel) 224H 05/15/18 10:40: Bedside Glucose (Misc Panel) 193H 05/15/18 11:37: Bedside Glucose (Misc Panel) 239H CBC/BMP Laboratory Tests 05/15/18 05:29 Red Blood Count 4.17 L, Mean Corpuscular Volume 87.3, Mean Corpuscular Hemoglobin 29.7, Mean Corpuscular Hemoglobin Concent 34.1, Red Cell Distribution Width 11.4 L, Neutrophils (%) (Auto) 75.9 H, Lymphocytes (%) (Auto) 17.2 L, Monocytes (%) (Auto) 5.1 H, Eosinophils (%) (Auto) 1.0, Basophils (%) (Auto) 0.3, Neutrophils # (Auto) 7.0, Lymphocytes # (Auto) 1.6, Monocytes # (Auto) 0.5, Eosinophils # (Auto) 0.1, Basophils # (Auto) 0.0, Calcium Level 9.3 Microbiology Microbiology 05/13/18 Blood Culture - Preliminary, Resulted No growth after 24 hours . All specim... 05/14/18 MRSA Screen - Final, Complete DAGMAR HUDSON MD May 15, 2018 13:01
[2018-05-15] MEDS ORDERED: VANCOMYCIN HCL 1,000 MG, VIAL MATE ADAPTER 1 EACH in D5W 250 ML IV ONE (17:00)
[2018-05-15] MEDS: PERCOCET 5MG/325MG TAB PO PRN (21:11)
[2018-05-15] MEDS: LEVEMIR (INSULIN DETEMIR) 1 UNITS/0.01ML SC SCH (21:12)
[2018-05-16] MEDS: AZTREONAM 1 GM in D5W MINI-BAG PLUS 50 ML IV SCH ×3 (04:36→20:48)
[2018-05-16] MEDS: ACETAMINOPHEN TAB 650MG DOSE (2X325MG) PO PRN (04:36)
[2018-05-16 06:00] VITALS: BP 116/59
[2018-05-16 06:16] LABS: HEMATOCRIT 34.6 % (42.0-52.0); HEMOGLOBIN 11.9 g/dl (13.5-17.5); MEAN CORPUSCULAR HEMOGLOBIN 30.3 pg (27.0-33.0); MEAN CORPUSCULAR HGB CONC 34.4 g/dl (32.0-36.5); PLATELET COUNT, AUTOMATED 393 10^3/uL (150-450); RED BLOOD COUNT 3.93 10^6/uL (4.30-6.10); WHITE BLOOD COUNT 9.3 10^3/uL (4.0-10.0)
[2018-05-16 06:36] LABS: BLOOD UREA NITROGEN 18 MG/DL (7-18); C REACTIVE PROTEIN QUANTITATIV 2.88 MG/DL (0.00-0.30); CALCIUM LEVEL 8.8 MG/DL (8.8-10.2); CARBON DIOXIDE LEVEL 26 MEQ/L (21-32); CHLORIDE LEVEL 98 MEQ/L (98-107); CREATININE FOR GFR 1.07 MG/DL (0.70-1.30); GLOMERULAR FILTRATION RATE > 60.0 (>42); GLUCOSE, FASTING 247 MG/DL (70-100); POTASSIUM SERUM 3.9 MEQ/L (3.5-5.1); SODIUM LEVEL 132 MEQ/L (136-145)
[2018-05-16 07:29] LABS: EOSINOPHILS 2 % (0-5); LYMPHOCYTES 16 % (16-52); MONOCYTES 7 % (0-8); NEUTROPHILS 75 % (35-75); PLATELET ESTIMATE NORMAL (NORMAL)
[2018-05-16] MEDS: HumaLOG INSULIN (NovoLOG) PER UNIT SC SCH ×4 (08:35→22:17)
[2018-05-16] MEDS: METOPROLOL TART 25 MG TABLET PO SCH (08:35)
[2018-05-16] MEDS: amLODIPine 10 MG TAB PO SCH (08:35)
[2018-05-16] MEDS: LEVEMIR (INSULIN DETEMIR) 1 UNITS/0.01ML SC SCH ×2 (09:00→22:18)
[2018-05-16] MEDS: VANCOMYCIN HCL 1,000 MG, VIAL MATE ADAPTER 1 EACH in D5W 250 ML IV SCH ×2 (09:16→22:16)
[2018-05-16] MEDS: PERCOCET 5MG/325MG TAB PO PRN ×2 (09:17→22:17)
--- NOTE | 2018-05-16 12:00 | IPN ---
DATE: 05/16/2018 Patient seen and examined postoperatively. He denies any overnight complaints. He states his pain is controlled by oral medications. Temperature is reviewed, he has been afebrile. Labs are reviewed. White blood cell count is 9.3, hemoglobin 11.9, CRP is 2.88. Wound culture results are reviewed. Aerobic cultures is growing methicillin-sensitive Staphylococcus Aureus. Anaerobic culture results are pending. Pathology is pending. Lower extremity examination: Erythema to the dorsal foot is somewhat receded. There is no longer necrotic tissue noticed. The flap does appear dusky, with questionable viability. ASSESSMENT: 77-year-old male with left hallux amputation. PLAN: Continue antibiotics. Await final culture results. Will monitor flap, suspect flap will not survive and may just require further bone resection to aid in wound closure. Will determine over the next day or two. Patient likely will have surgery either Sunday or Sunday, depending on progression of flap. [facility] follow. [facility]
[2018-05-16 14:00] VITALS: BP 127/69
--- NOTE | 2018-05-16 15:31 | IPNPDOC ---
Subjective Date Seen The patient was seen on 05/16/18. Subjective Chief Complaint/HPI Patient seen and examined at the bedside. No acute or any events noted. Notes that his pain is well controlled at this time. Objective Physical Examination General Exam: Positive: Alert, Cooperative, No Acute Distress ENT Exam: Positive: Atraumatic, Mucous membr. moist/pink Neck Exam: Negative: JVD Chest Exam: Positive: Clear to auscultation, Normal air movement Heart Exam: Positive: Rate Normal, Normal S1, Normal S2 Abdomen Exam: Positive: Soft; Negative: Tenderness Extremity Exam: Positive: Other (surgical dressing noted to be wrapped around the left foot. No superficial drainage noted.) Psych Exam: Positive: Oriented x 3 Assessment /Plan Plan/VTE VTE Prophylaxis Ordered?: Yes (TEDs, sequentials, knee-high compression) Plan Diabetic Foot Ulcer s/p left hallux amputation by Dr. Burnette of Podiatry on 05/15/18 Blood Culture unrevealing Wound culture pending Cont Aztreonam and Vancomycin. We will cont to monitor and f/u with Podiatry recommendations. Chronic Kidney Disease Stage II-III Serum Cr at baseline Hypertension Continue amlodipine and metoprolol Diabetes mellitus Cont regimen as ordered Hx of Coronary artery disease status post coronary artery bypass grafting ASA on hold 2/2 Surgery Cont Metoprolol Not on Statin 2/2 Allergy DVT Prophylaxis SCDs/TEDs VS, I&O, 24H, Fishbone Vital Signs/I&O Vital Signs Date Time Temp Pulse Resp B/P (MAP) Pulse Ox O2 Delivery O2 Flow Rate FiO2 05/16/18 14:00 98.6 69 18 127/69 (88) 96 Room Air 05/15/18 10:50 2 I&O- Last 24 Hours up to 6 AM 05/16/18 05:59 Intake Total 1260 ml Balance 1260 ml Laboratory Data 24H LABS Laboratory Tests 2 05/15/18 16:01: Vancomycin Level Trough 8.7L 05/15/18 16:42: Bedside Glucose (Misc Panel) 316H 05/15/18 20:51: Bedside Glucose (Misc Panel) 338H 05/16/18 05:28: Nucleated Red Blood Cells % (auto) 0.0, Neutrophils 75, Lymphocytes (Manual) 16, Monocytes (Manual) 7, Eosinophils (Manual) 2, Platelet Estimate NORMAL, Red Blood Cell Morphology NORMAL, Anion Gap 8, Glomerular Filtration Rate > 60.0, Blood Urea Nitrogen 18, Creatinine 1.07, Sodium Level 132L, Potassium Level 3.9, Chloride Level 98, Carbon Dioxide Level 26, Calcium Level 8.8, C-Reactive Pr otein, Quantitative 2.88H 05/16/18 11:19: Bedside Glucose (Misc Panel) 329H CBC/BMP Laboratory Tests 05/16/18 05:28 Red Blood Count 3.93 L, Mean Corpuscular Volume 88.0, Mean Corpuscular Hemoglobin 30.3, Mean Corpuscular Hemoglobin Concent 34.4, Red Cell Distribution Width 11.2 L, Calcium Level 8.8 Microbiology Microbiology 05/13/18 Blood Culture - Preliminary, Resulted No Growth after 48 hours. All Specime... 05/14/18 MRSA Screen - Final, Complete DAGMAR HUDSON MD May 16, 2018 15:31
[2018-05-16 22:00] VITALS: BP 123/65
[2018-05-17] MEDS: AZTREONAM 1 GM in D5W MINI-BAG PLUS 50 ML IV SCH (04:53)
[2018-05-17] MEDS: PERCOCET 5MG/325MG TAB PO PRN ×2 (04:54→22:57)
[2018-05-17 06:00] VITALS: BP 133/73
[2018-05-17 06:21] LABS: BASO % 0.5 % (0.0-1.0); EOS # 0.1 10^3/uL (0.0-0.50); EOS % 1.3 % (0.0-3.0); HEMATOCRIT 36.6 % (42.0-52.0); HEMOGLOBIN 12.4 g/dl (13.5-17.5); LYMPH # 1.7 10^3/uL (1.5-4.5); LYMPH % 23.2 % (24.0-44.0); MEAN CORPUSCULAR HEMOGLOBIN 30.1 pg (27.0-33.0); MEAN CORPUSCULAR HGB CONC 33.9 g/dl (32.0-36.5); MEAN CORPUSCULAR VOLUME 88.8 fl (80.0-96.0); MONO # 0.5 10^3/uL (0.0-0.8); MONO % 6.2 % (0.0-5.0); NEUTROPHILS # 5.1 10^3/uL (1.8-7.7); NEUTROPHILS % 68.3 % (36.0-66.0); PLATELET COUNT, AUTOMATED 400 10^3/uL (150-450); RED BLOOD COUNT 4.12 10^6/uL (4.30-6.10); WHITE BLOOD COUNT 7.4 10^3/uL (4.0-10.0)
[2018-05-17 06:50] LABS: BLOOD UREA NITROGEN 14 MG/DL (7-18); CALCIUM LEVEL 9.1 MG/DL (8.8-10.2); CARBON DIOXIDE LEVEL 29 MEQ/L (21-32); CHLORIDE LEVEL 99 MEQ/L (98-107); CREATININE FOR GFR 0.98 MG/DL (0.70-1.30); GLOMERULAR FILTRATION RATE > 60.0 (>42); GLUCOSE, FASTING 201 MG/DL (70-100); POTASSIUM SERUM 4.1 MEQ/L (3.5-5.1); SODIUM LEVEL 134 MEQ/L (136-145)
[2018-05-17] MEDS: LEVEMIR (INSULIN DETEMIR) 1 UNITS/0.01ML SC SCH ×2 (09:15→22:04)
[2018-05-17] MEDS: VANCOMYCIN HCL 1,000 MG, VIAL MATE ADAPTER 1 EACH in D5W 250 ML IV SCH (09:15)
[2018-05-17] MEDS: HumaLOG INSULIN (NovoLOG) PER UNIT SC SCH ×4 (09:15→22:03)
[2018-05-17] MEDS: METOPROLOL TART 25 MG TABLET PO SCH (09:19)
[2018-05-17] MEDS: amLODIPine 10 MG TAB PO SCH (09:19)
--- NOTE | 2018-05-17 10:44 | PHACANCOPD ---
PHARMACY VANCOMYCIN DOSING Pt Demographics Demographics Patient Age:77 , Weight:78.000 , Gender: male Vancomycin Vancomycin indication: DIABETIC FOOT Vancomycin Target Ranges: 10-20 mcg/ml Vancomycin Load Y/N: No Load Dose Date Time Vancomycin Load Dose: 1GM Date: 05/13/18 Time: 19:00 Vancomycin Dose Date: 05/14/18. Current Vancomycin Dose: [1GM IV Q12H (05:00)] Intermittent Dosing?: No Labs Micro Microbiology 05/13/18 Blood Culture - Preliminary, Resulted No Growth after 72 hours. All specime... 05/14/18 MRSA Screen - Final, Complete Creatinine Clearance Date:05/13/18. Creatinine Clearance: [50]. Assessment and Plan Maintaining Current Dose?: Yes Reason for dose change: No Dose Change Pharmacist Note Pharmacist Note 05/17/18: Day #5 IV vancomycin tx. Trough level resulted at 14.4mcg/ml. Scr remains stable at 0.98 today from 1.32 at start of therapy. We will continue the patient on his current regimen of 1g IV Q12H for the treatment of a left diabetic foot ulcer and draw further levels as needed. Date: 05/13/18. PharmD note: VANCO 1GM IV x1 per ATTENDING RESIDENT. WE WILL CONTINUE WITH VANCO 1GM IV Q12H STARTING AT 5AM 05/14 VANCO TROUGH WHEN AT [facility] May 17, 2018 10:44
--- NOTE | 2018-05-17 13:14 | IPN ---
DATE OF SERVICE: 05/17/2018 The patient is seen and examined at the bedside. States that he has a little bit of pain in his foot, but this is well controlled by the oral medication. Vitals are reviewed. He has been afebrile. Laboratories are reviewed. White blood cell count is 7.4, C-reactive protein is 5.8. Culture results, final, show Staphylococcus aureus and Enterococcus, both sensitive to doxycycline. 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 Lower extremity examination showed improvement in erythema and edema noted. The flap is inspected. There is some duskiness but there does remain some capillary refill to this flap. ASSESSMENT: 77-year-old male status post left hallux amputation. PLAN: We will reassess once more tomorrow, the flap, with tentative plans for operation on Sunday. Antibiotics changed to doxycycline. We will follow.
[2018-05-17] MEDS: DOXYCYCLINE HYCLATE 100 MG in D5W MINI-BAG PLUS 100 ML IV SCH (13:44)
[2018-05-17] MEDS: ACETAMINOPHEN TAB 650MG DOSE (2X325MG) PO PRN (13:45)
[2018-05-17] MEDS: SENNA 8.6 MG TAB (SENOKOT) PO SCH ×2 (13:48→22:04)
[2018-05-17 14:00] VITALS: BP 119/60
--- NOTE | 2018-05-17 16:22 | IPNPDOC ---
Subjective Date Seen The patient was seen on 05/17/18. Subjective Chief Complaint/HPI Patient seen and examined at the bedside. Denies any acute complaints at this time. Objective Physical Examination General Exam: Positive: Alert, Cooperative, No Acute Distress ENT Exam: Positive: Atraumatic, Mucous membr. moist/pink Neck Exam: Negative: JVD Chest Exam: Positive: Clear to auscultation, Normal air movement Heart Exam: Positive: Rate Normal, Normal S1, Normal S2 Abdomen Exam: Positive: Soft; Negative: Tenderness Extremity Exam: Positive: Other (surgical dressing noted to be wrapped around the left foot. No superficial drainage noted.) Psych Exam: Positive: Oriented x 3 Assessment /Plan Plan/VTE VTE Prophylaxis Ordered?: Yes (TEDs, sequentials, knee-high compression) Plan Diabetic Foot Ulcer s/p left hallux amputation by Dr. Burnette of Podiatry on 05/15/18 Blood Culture unrevealing Wound culture pending Cont on Doxycycline We will cont to monitor and f/u with Podiatry recommendations. Chronic Kidney Disease Stage II-III Serum Cr at baseline Hypertension Continue amlodipine and metoprolol Diabetes mellitus Cont regimen as ordered Hx of Coronary artery disease status post coronary artery bypass grafting ASA on hold 2/2 Surgery Cont Metoprolol Not on Statin 2/2 Allergy DVT Prophylaxis SCDs/TEDs VS, I&O, 24H, Fishbone Vital Signs/I&O Vital Signs Date Time Temp Pulse Resp B/P (MAP) Pulse Ox O2 Delivery O2 Flow Rate FiO2 05/17/18 14:00 98.3 71 18 119/60 (79) 95 Room Air 05/15/18 10:50 2 I&O- Last 24 Hours up to 6 AM 05/17/18 06:00 Intake Total 1200 ml Output Total 0 ml Balance 1200 ml Laboratory Data 24H LABS Laboratory Tests 2 05/16/18 20:52: Bedside Glucose (Misc Panel) 294H 05/17/18 05:45: Immature Granulocyte % (Auto) 0.5, White Blood Count 7.4, Red Blood Count 4.12L, Hemoglobin 12.4L, Hematocrit 36.6L, Mean Corpuscular Volume 88.8, Mean Jan uscular Hemoglobin 30.1, Mean Corpuscular Hemoglobin Concent 33.9, Red Cell Distribution Width 11.5, Platelet Count 400, Neutrophils (%) (Auto) 68.3H, Lymphocytes (%) (Auto) 23.2L, Monocytes (%) (Auto) 6.2H, Eosinophils (%) (Auto) 1.3, Basophils (%) (Auto) 0.5, Neutrophils # (Auto) 5.1, Lymphocytes # (Auto) 1.7, Monocytes # (Auto) 0.5, Eosinophils # (Auto) 0.1, Basophils # (Auto) 0.0, Nucleated Red Blood Cells % (auto) 0.0, Anion Gap 6L, Glomerular Filtration Rate > 60.0, Blood Urea Nitrogen 14, Creatinine 0.98, Sodium Level 134L, Potassium Level 4.1, Chloride Level 99, Carbon Dioxide Level 29, Calcium Level 9.1, C- Reactive Protein, Quantitative 5.80H 05/17/18 09:02: Vancomycin Level Trough 14.4 05/17/18 11:58: Bedside Glucose (Misc Panel) 289H CBC/BMP Laboratory Tests 05/17/18 05:45 Red Blood Count 4.12 L, Mean Corpuscular Volume 88.8, Mean Corpuscular Hemoglobin 30.1, Mean Corpuscular Hemoglobin Concent 33.9, Red Cell Distribution Width 11.5, Neutrophils (%) (Auto) 68.3 H, Lymphocytes (%) (Auto) 23.2 L, Monocytes (%) (Auto) 6.2 H, Eosinophils (%) (Auto) 1.3, Basophils (%) (Auto) 0.5, Neutrophils # (Auto) 5.1, Lymphocytes # (Auto) 1.7, Monocytes # (Auto) 0.5, Eosinophils # (Auto) 0.1, Basophils # (Auto) 0.0, Calcium Level 9.1 Microbiology Microbiology 05/13/18 Blood Culture - Preliminary, Resulted No Growth after 72 hours. All specime... 05/14/18 MRSA Screen - Final, Complete DAGMAR HUDSON MD May 17, 2018 16:22
[2018-05-17 22:00] VITALS: BP 131/62
[2018-05-18] MEDS: DOXYCYCLINE HYCLATE 100 MG in D5W MINI-BAG PLUS 100 ML IV SCH ×2 (03:00→13:11)
[2018-05-18 06:00] VITALS: BP 123/63
[2018-05-18 06:49] LABS: BASO % 0.4 % (0.0-1.0); EOS # 0.1 10^3/uL (0.0-0.50); EOS % 1.9 % (0.0-3.0); HEMATOCRIT 34.7 % (42.0-52.0); LYMPH # 1.9 10^3/uL (1.5-4.5); LYMPH % 24.9 % (24.0-44.0); MEAN CORPUSCULAR HEMOGLOBIN 30.6 pg (27.0-33.0); MEAN CORPUSCULAR HGB CONC 34.6 g/dl (32.0-36.5); MEAN CORPUSCULAR VOLUME 88.5 fl (80.0-96.0); MONO # 0.4 10^3/uL (0.0-0.8); MONO % 5.7 % (0.0-5.0); NEUTROPHILS % 66.7 % (36.0-66.0); PLATELET COUNT, AUTOMATED 401 10^3/uL (150-450); RED BLOOD COUNT 3.92 10^6/uL (4.30-6.10); WHITE BLOOD COUNT 7.4 10^3/uL (4.0-10.0)
[2018-05-18 06:50] LABS: BLOOD UREA NITROGEN 14 MG/DL (7-18); C REACTIVE PROTEIN QUANTITATIV 6.07 MG/DL (0.00-0.30); CALCIUM LEVEL 9.1 MG/DL (8.8-10.2); CARBON DIOXIDE LEVEL 28 MEQ/L (21-32); CHLORIDE LEVEL 100 MEQ/L (98-107); CREATININE FOR GFR 0.96 MG/DL (0.70-1.30); GLOMERULAR FILTRATION RATE > 60.0 (>42); GLUCOSE, FASTING 179 MG/DL (70-100); POTASSIUM SERUM 4.1 MEQ/L (3.5-5.1); SODIUM LEVEL 135 MEQ/L (136-145)
[2018-05-18] MEDS: HumaLOG INSULIN (NovoLOG) PER UNIT SC SCH ×4 (08:05→21:13)
[2018-05-18] MEDS: SENNA 8.6 MG TAB (SENOKOT) PO SCH ×2 (08:05→21:13)
[2018-05-18] MEDS: LEVEMIR (INSULIN DETEMIR) 1 UNITS/0.01ML SC SCH ×2 (08:06→21:13)
[2018-05-18] MEDS: amLODIPine 10 MG TAB PO SCH (08:06)
[2018-05-18] MEDS: METOPROLOL TART 25 MG TABLET PO SCH (08:06)
--- NOTE | 2018-05-18 10:39 | IPNPDOC ---
Subjective Date Seen The patient was seen on 05/18/18. Subjective Chief Complaint/HPI Patient seen and examined at bedside. Denies any acute overnight events. Objective Physical Examination General Exam: Positive: Alert, Cooperative, No Acute Distress ENT Exam: Positive: Atraumatic, Mucous membr. moist/pink Neck Exam: Negative: JVD Chest Exam: Positive: Clear to auscultation, Normal air movement Heart Exam: Positive: Rate Normal, Normal S1, Normal S2 Abdomen Exam: Positive: Soft; Negative: Tenderness Extremity Exam: Positive: Other (surgical dressing noted to be wrapped around the left foot. No superficial drainage noted.) Psych Exam: Positive: Oriented x 3 Assessment /Plan Plan/VTE VTE Prophylaxis Ordered?: Yes (TEDs, sequentials, knee-high compression) Plan Diabetic Foot Ulcer s/p left hallux amputation by Dr. Burnette of Podiatry on 05/15/18 Blood Culture unrevealing Cont on Doxycycline We will cont to monitor and f/u with Podiatry recommendations. Chronic Kidney Disease Stage II-III Serum Cr at baseline Hypertension Continue amlodipine and metoprolol Diabetes mellitus Cont regimen as ordered Hx of Coronary artery disease status post coronary artery bypass grafting ASA on hold 2/2 Surgery Cont Metoprolol Not on Statin 2/2 Allergy DVT Prophylaxis SCDs/TEDs Dispo--Patient scheduled for more surgical intervention tomorrow. Will f/u with Podiatry recommendations. VS, I&O, 24H, Fishbone Vital Signs/I&O Vital Signs Date Time Temp Pulse Resp B/P (MAP) Pulse Ox O2 Delivery O2 Flow Rate FiO2 05/18/18 08:06 78 129/65 05/18/18 06:00 98.6 20 93 Room Air 05/15/18 10:50 2 I&O- Last 24 Hours up to 6 AM 05/18/18 06:00 Intake Total 2370 ml Balance 2370 ml Laboratory Data 24H LABS Laboratory Tests 2 05/17/18 11:58: Bedside Glucose (Misc Panel) 289H 05/17/18 18:21: Bedside Glucose (Misc Panel) 255H 05/17/18 20:48: Bedside Glucose (Misc Panel) 307H 05/18/18 05:46: Immature Granulocyte % (Auto) 0.4, White Blood Count 7.4, Red Blood Count 3.92L, Hemoglobin 12.0L, Hematocrit 34.7L, Mean Corpuscular Volume 88.5, Mean Corpuscular Hemoglobin 30.6, Mean Corpuscular Hemoglobin Concent 34.6, Red Cell Distribution Width 11.4L, Platelet Count 401, Neutrophils (%) (Auto) 66.7H, Lymphocytes (%) (Auto) 24.9, Monocytes (%) (Auto) 5.7H, Eosinophils (%) (Auto) 1.9, Basophils (%) (Auto) 0.4, Neutrophils # (Auto) 5.0, Lymphocytes # (Auto) 1.9, Monocytes # (Auto) 0.4, Eosinophils # (Auto) 0.1, Basophils # (Auto) 0.0, Nucleated Red Blood Cells % (auto) 0.0, Anion Gap 7L, Glomerular Filtration Rate > 60.0, Blood Urea Nitrogen 14, Creatinine 0.96, Sodium Level 135L, Potassium Level 4.1, Chloride Level 100, Carbon Dioxide Level 28, Calcium Level 9.1, C- Reactive Protein, Quantitative 6.07H CBC/BMP Laboratory Tests 05/18/18 05:46 Red Blood Count 3.92 L, Mean Corpuscular Volume 88.5, Mean Corpuscular Hemoglobin 30.6, Mean Corpuscular Hemoglobin Concent 34.6, Red Cell Distribution Width 11.4 L, Neutrophils (%) (Auto) 66.7 H, Lymphocytes (%) (Auto) 24.9, Monocytes (%) (Auto) 5.7 H, Eosinophils (%) (Auto) 1.9, Basophils (%) (Auto) 0.4, Neutrophils # (Auto) 5.0, Lymphocytes # (Auto) 1.9, Monocytes # (Auto) 0.4, Eosinophils # (Auto) 0.1, Basophils # (Auto) 0.0, Calcium Level 9.1 Microbiology Microbiology 05/13/18 Blood Culture - Preliminary, Resulted No Growth after 72 hours. All specime... 05/14/18 MRSA Screen - Final, Complete DAGMAR HUDSON MD May 18, 2018 10:39
[2018-05-18 14:00] VITALS: BP 122/58
--- NOTE | 2018-05-18 16:25 | IPN ---
DATE: 05/18/2018 Patient is seen and examined at bedside. Denies overnight complaints. States pain controlled. Denies nausea, vomiting, fever, or chills. Does note a rash earlier this morning on his abdomen and thigh. Labs are reviewed. White blood cell count is 7.4, hemoglobin is 12, CRP is 6.07. Culture results are reviewed. Final growth shows Staphylococcus aureus methicillin sensitive, Enterococcus, and anaerobic growth shows Propionibacterium. LOWER EXTREMITY EXAMINATION: Erythema again improving at the left dorsal of foot. The flap now has worsened with further duskiness and no capillary refill. ASSESSMENT: This is a 77-year-old male with gangrene left hallux status post amputation. PLAN: Will plan further bone resection and hopeful closure tomorrow morning. Should be nothing by mouth midnight. Continue current antibiotics. Monitor skin for worsening rash. May need to change antibiotic if rash worsens.
[2018-05-18] MEDS: PERCOCET 5MG/325MG TAB PO PRN (21:12)
[2018-05-18 22:00] VITALS: BP 131/67
[2018-05-19] VITALS (9 sets, daily range): BP systolic 131–148; BP diastolic 67–74
[2018-05-19] MEDS: DOXYCYCLINE HYCLATE 100 MG in D5W MINI-BAG PLUS 100 ML IV SCH ×2 (02:53→13:28)
[2018-05-19 05:56] LABS: BASO % 0.6 % (0.0-1.0); EOS # 0.2 10^3/uL (0.0-0.50); EOS % 2.6 % (0.0-3.0); HEMATOCRIT 33.9 % (42.0-52.0); HEMOGLOBIN 11.9 g/dl (13.5-17.5); LYMPH # 1.6 10^3/uL (1.5-4.5); LYMPH % 22.7 % (24.0-44.0); MEAN CORPUSCULAR HEMOGLOBIN 30.1 pg (27.0-33.0); MEAN CORPUSCULAR HGB CONC 35.1 g/dl (32.0-36.5); MEAN CORPUSCULAR VOLUME 85.6 fl (80.0-96.0); MONO # 0.5 10^3/uL (0.0-0.8); MONO % 7.1 % (0.0-5.0); NEUTROPHILS # 4.6 10^3/uL (1.8-7.7); NEUTROPHILS % 66.6 % (36.0-66.0); PLATELET COUNT, AUTOMATED 396 10^3/uL (150-450); RED BLOOD COUNT 3.96 10^6/uL (4.30-6.10); WHITE BLOOD COUNT 6.9 10^3/uL (4.0-10.0)
[2018-05-19 06:18] LABS: BLOOD UREA NITROGEN 13 MG/DL (7-18); CALCIUM LEVEL 9.1 MG/DL (8.8-10.2); CARBON DIOXIDE LEVEL 25 MEQ/L (21-32); CHLORIDE LEVEL 101 MEQ/L (98-107); CREATININE FOR GFR 0.78 MG/DL (0.70-1.30); GLOMERULAR FILTRATION RATE > 60.0 (>42); GLUCOSE, FASTING 181 MG/DL (70-100); POTASSIUM SERUM 3.8 MEQ/L (3.5-5.1); SODIUM LEVEL 136 MEQ/L (136-145)
[2018-05-19] MEDS: HumaLOG INSULIN (NovoLOG) PER UNIT SC SCH ×4 (07:30→21:09)
[2018-05-19] MEDS: METOPROLOL TART 25 MG TABLET PO SCH (07:55)
[2018-05-19] MEDS ORDERED: LIDOCAINE 1% MDV 20ML VIAL As Ordered ONE (08:02)
[2018-05-19] MEDS ORDERED: BUPIVACAINE HCL 0.5% 10 ML VIAL As Ordered ONE (08:02)
[2018-05-19] MEDS ORDERED: MIDAZOLAM INJ 2 MG/2 ML VIAL (J2250) As Ordered ONE (08:34)
[2018-05-19] MEDS ORDERED: PROPOFOL 200 MG/20 ML VIAL As Ordered ONE (08:34)
[2018-05-19] MEDS ORDERED: fentaNYL 100 MCG/2 ML INJECTION (J3010) As Ordered ONE (08:34)
[2018-05-19] MEDS: amLODIPine 10 MG TAB PO SCH (09:00)
[2018-05-19] MEDS: LEVEMIR (INSULIN DETEMIR) 1 UNITS/0.01ML SC SCH ×2 (09:00→21:08)
[2018-05-19] MEDS: SENNA 8.6 MG TAB (SENOKOT) PO SCH ×2 (09:00→21:00)
[2018-05-19] MEDS ORDERED: LR 1,000 ML IV SCH (09:30)
[2018-05-19] MEDS ORDERED: PERCOCET 5MG/325MG TAB PO PRN (09:30)
[2018-05-19] MEDS ORDERED: fentaNYL 100 MCG/2 ML INJECTION (J3010) IV PRN (09:30)
--- NOTE | 2018-05-19 13:06 | IPNPDOC ---
Subjective Date Seen The patient was seen on 05/19/18. Subjective Chief Complaint/HPI Patient seen and examined at the bedside. Scheduled for surgery this morning with podiatry. Objective Physical Examination General Exam: Positive: Alert, Cooperative, No Acute Distress ENT Exam: Positive: Atraumatic, Mucous membr. moist/pink Neck Exam: Negative: JVD Chest Exam: Positive: Clear to auscultation, Normal air movement Heart Exam: Positive: Rate Normal, Normal S1, Normal S2 Abdomen Exam: Positive: Soft; Negative: Tenderness Extremity Exam: Positive: Other (surgical dressing noted to be wrapped around the left foot. No superficial drainage noted.) Psych Exam: Positive: Oriented x 3 Assessment /Plan Plan/VTE VTE Prophylaxis Ordered?: Yes (TEDs, sequentials, knee-high compression) Plan Diabetic Foot Ulcer s/p left hallux amputation by Dr. Burnette of Podiatry on 05/15/18--patient scheduled for further surgical intervention today Blood Culture unrevealing Cont on Doxycycline We will cont to monitor and f/u with Podiatry recommendations. Chronic Kidney Disease Stage II-III Serum Cr at baseline Hypertension Continue amlodipine and metoprolol Diabetes mellitus Cont regimen as ordered Hx of Coronary artery disease status post coronary artery bypass grafting ASA on hold 2/2 Surgery Cont Metoprolol Not on Statin 2/2 Allergy DVT Prophylaxis SCDs/TEDs Dispo--Patient scheduled for more surgical intervention today. Will f/u with Podiatry recommendations. VS, I&O, 24H, Fishbone Vital Signs/I&O Vital Signs Date Time Temp Pulse Resp B/P (MAP) Pulse Ox O2 Delivery O2 Flow Rate FiO2 05/19/18 12:00 98.4 59 18 136/68 (90) 94 Room Air 05/15/18 10:50 2 I&O- Last 24 Hours up to 6 AM 05/19/18 06:00 Intake Total 2500 ml Balance 2500 ml Laboratory Data 24H LABS Laboratory Tests 2 05/18/18 16:37: Bedside Glucose (Misc Panel) 151H 05/18/18 21:07: Bedside Glucose (Misc Panel) 242H 05/19/18 05:28: Immature Granulocyte % (Auto) 0.4, White Blood Count 6.9, Red Blood Count 3.96L, Hemoglobin 11.9L, Hematocrit 33.9L, Mean Corpuscular Volume 85.6, Mean Corpu scular Hemoglobin 30.1, Mean Corpuscular Hemoglobin Concent 35.1, Red Cell Distribution Width 11.4L, Platelet Count 396, Neutrophils (%) (Auto) 66.6H, Lymphocytes (%) (Auto) 22.7L, Monocytes (%) (Auto) 7.1H, Eosinophils (%) (Auto) 2.6, Basophils (%) (Auto) 0.6, Neutrophils # (Auto) 4.6, Lymphocytes # (Auto) 1.6, Monocytes # (Auto) 0.5, Eosinophils # (Auto) 0.2, Basophils # (Auto) 0.0, Nucleated Red Blood Cells % (auto) 0.0, Anion Gap 10, Glomerular Filtration Rate > 60.0, Blood Urea Nitrogen 13, Creatinine 0.78, Sodium Level 136, Potassium Level 3.8, Chloride Level 101, Carbon Dioxide Level 25, Calcium Level 9.1, C- Reactive Protein, Quantitative 4.54H 05/19/18 09:19: Bedside Glucose (Misc Panel) 178H 05/19/18 11:23: Bedside Glucose (Misc Panel) 177H CBC/BMP Laboratory Tests 05/19/18 05:28 Red Blood Count 3.96 L, Mean Corpuscular Volume 85.6, Mean Corpuscular Hemoglobin 30.1, Mean Corpuscular Hemoglobin Concent 35.1, Red Cell Distribution Width 11.4 L, Neutrophils (%) (Auto) 66.6 H, Lymphocytes (%) (Auto) 22.7 L, Monocytes (%) (Auto) 7.1 H, Eosinophils (%) (Auto) 2.6, Basophils (%) (Auto) 0.6, Neutrophils # (Auto) 4.6, Lymphocytes # (Auto) 1.6, Monocytes # (Auto) 0.5, Eosinophils # (Auto) 0.2, Basophils # (Auto) 0.0, Calcium Level 9.1 Microbiology Microbiology 05/13/18 Blood Culture - Final, Complete NO GROWTH AFTER 5 DAYS 05/14/18 MRSA Screen - Final, Complete DAGMAR HUDSON MD May 19, 2018 13:06
[2018-05-19] MEDS: PERCOCET 5MG/325MG TAB PO PRN (18:23)
[2018-05-20] MEDS: DOXYCYCLINE HYCLATE 100 MG in D5W MINI-BAG PLUS 100 ML IV SCH ×2 (01:05→13:32)
[2018-05-20 02:00] VITALS: BP 122/80
[2018-05-20] MEDS: PERCOCET 5MG/325MG TAB PO PRN ×3 (04:09→20:03)
[2018-05-20 06:00] VITALS: BP 141/76
[2018-05-20 06:27] LABS: BASO % 0.2 % (0.0-1.0); EOS # 0.1 10^3/uL (0.0-0.50); EOS % 1.4 % (0.0-3.0); HEMOGLOBIN 11.8 g/dl (13.5-17.5); LYMPH # 1.4 10^3/uL (1.5-4.5); LYMPH % 16.8 % (24.0-44.0); MEAN CORPUSCULAR HEMOGLOBIN 29.9 pg (27.0-33.0); MEAN CORPUSCULAR HGB CONC 34.7 g/dl (32.0-36.5); MEAN CORPUSCULAR VOLUME 86.3 fl (80.0-96.0); MONO # 0.6 10^3/uL (0.0-0.8); NEUTROPHILS # 6.2 10^3/uL (1.8-7.7); NEUTROPHILS % 74.2 % (36.0-66.0); PLATELET COUNT, AUTOMATED 390 10^3/uL (150-450); RED BLOOD COUNT 3.94 10^6/uL (4.30-6.10); WHITE BLOOD COUNT 8.3 10^3/uL (4.0-10.0)
[2018-05-20 06:52] LABS: BLOOD UREA NITROGEN 16 MG/DL (7-18); C REACTIVE PROTEIN QUANTITATIV 3.06 MG/DL (0.00-0.30); CALCIUM LEVEL 9.3 MG/DL (8.8-10.2); CARBON DIOXIDE LEVEL 26 MEQ/L (21-32); CHLORIDE LEVEL 101 MEQ/L (98-107); CREATININE FOR GFR 0.96 MG/DL (0.70-1.30); GLOMERULAR FILTRATION RATE > 60.0 (>42); GLUCOSE, FASTING 202 MG/DL (70-100); SODIUM LEVEL 134 MEQ/L (136-145)
[2018-05-20] MEDS: HumaLOG INSULIN (NovoLOG) PER UNIT SC SCH ×4 (08:09→20:04)
[2018-05-20] MEDS: amLODIPine 10 MG TAB PO SCH (08:10)
[2018-05-20] MEDS: LEVEMIR (INSULIN DETEMIR) 1 UNITS/0.01ML SC SCH ×2 (08:10→20:04)
[2018-05-20] MEDS: SENNA 8.6 MG TAB (SENOKOT) PO SCH ×2 (08:10→20:03)
[2018-05-20] MEDS: METOPROLOL TART 25 MG TABLET PO SCH (08:10)
[2018-05-20 10:00] VITALS: BP 118/59
--- NOTE | 2018-05-20 11:27 | RO ---
DATE OF PROCEDURE: 05/19/2018 PREOPERATIVE DIAGNOSIS: Left foot diabetic ulcer and infection. POSTOPERATIVE DIAGNOSIS: Left foot diabetic ulcer and infection. PROCEDURE: Left foot first metatarsal head resection and wound closure. SURGEON: Dr. Jd Burnette STATISTICAL ASSISTANT: ANESTHESIA: Monitored anesthesia care. Preoperative injection of 20 mL of 1:1 mixture of 1% lidocaine and plain 1/2% Marcaine plain. ESTIMATED BLOOD LOSS 5 mL. MATERIALS: #3-0 nylon. SPECIMEN: Left first metatarsal head. COMPLICATIONS: None. CONDITION: Stable. 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 He has been monitored over the last few days on antibiotics with improvement in his infection. There was a flap which was being monitored for possible closure, but this flap did fail due to vascular injury from the infection. Decision made to bring him to the operating room for a first metatarsal head resection and wound closure. The patient side and site were identified and marked in preoperative holding area. Consent was reviewed and obtained. Risks, complications and alternatives to the procedure were explained to the patient in detail and all questions were answered. DESCRIPTION OF PROCEDURE: The patient was brought to the operating room and placed on the operating room table in supine position. Monitored anesthesia care was delivered by the anesthesia team. Preoperative injection of 20 mL of 1:1 mixture of 1% lidocaine plain and 1/2% Marcaine plain was injected in the foot. The foot was prepped and draped in the normal sterile fashion. The patient had received his scheduled antibiotics earlier this morning. A tourniquet was applied to the left ankle, but was not utilized during the procedure. The distal flap was cyanotic without any return of blood flow outpatient and this was excised with #15 blade. There was some necrotic tissue inferior to the first metatarsal head which was excised. The overlying soft tissue from the metatarsal head was resected and the metatarsal head was resected using sagittal saw. This was sent for pathology. Extensive tendons and flexor tendons were transected and excised as was the sesamoids. Further debridement was performed until no further necrotic tissue was identified. Bovie was used to maintain hemostasis. The site was irrigated with normal saline solution. The incision was closed using #3-0 nylon. Sterile dressings were applied. The patient was brought to the postanesthesia care unit with vital signs stable and neurovascular status intact. He will be readmitted to the floor for antibiotics. Will follow.
--- NOTE | 2018-05-20 12:13 | IPNPDOC ---
Subjective Date Seen The patient was seen on 05/20/18. Subjective Chief Complaint/HPI Patient seen and examined at the bedside. No acute overnight events noted. Objective Physical Examination General Exam: Positive: Alert, Cooperative, No Acute Distress ENT Exam: Positive: Atraumatic, Mucous membr. moist/pink Neck Exam: Negative: JVD Chest Exam: Positive: Clear to auscultation, Normal air movement Heart Exam: Positive: Rate Normal, Normal S1, Normal S2 Abdomen Exam: Positive: Soft; Negative: Tenderness Extremity Exam: Positive: Other (surgical dressing noted to be wrapped around the left foot. No superficial drainage noted.) Psych Exam: Positive: Oriented x 3 Assessment /Plan Plan/VTE VTE Prophylaxis Ordered?: Yes (TEDs, sequentials, knee-high compression) Plan Diabetic Foot Ulcer s/p left hallux amputation by Dr. Burnette of Podiatry on 05/15/18 and left foot first metatarsal head resection and wound closure on 05/19/89 Blood Culture unrevealing Cont on Doxycycline We will cont to monitor and f/u with Podiatry recommendations. Chronic Kidney Disease Stage II-III Serum Cr at baseline Hypertension Continue amlodipine and metoprolol Diabetes mellitus Cont regimen as ordered Hx of Coronary artery disease status post coronary artery bypass grafting ASA on hold 2/2 Surgery Cont Metoprolol Not on Statin 2/2 Allergy DVT Prophylaxis SCDs/TEDs Dispo--PT eval pending. Will f/u with Podiatry recommendations. Possible D/C in the next 24-48hrs. VS, I&O, 24H, Fishbone Vital Signs/I&O Vital Signs Date Time Temp Pulse Resp B/P (MAP) Pulse Ox O2 Delivery O2 Flow Rate FiO2 05/20/18 10:00 97.7 62 18 118/59 (78) 94 Room Air 05/15/18 10:50 2 I&O- Last 24 Hours up to 6 AM 05/20/18 05:59 Intake Total 1635 ml Balance 1635 ml Laboratory Data 24H LABS Laboratory Tests 2 05/19/18 16:37: Bedside Glucose (Misc Panel) 272H 05/19/18 20:31: Bedside Glucose (Misc Panel) 273H 05/20/18 05:55: Immature Granulocyte % (Auto) 0.4, White Blood Count 8.3, Red Blood Count 3.94L, Hemoglobin 11.8L, Hematocrit 34.0L, Mean Corpuscular Volume 86.3, Mean Corpuscular Hemoglobin 29.9, Mean Corpuscular Hemoglobin Concent 34.7, Red Cell Distribution Width 11.5, Platelet Count 390, Neutrophils (%) (Auto) 74.2H, Lymphocytes (%) (Auto) 16.8L, Monocytes (%) (Auto) 7.0H, Eosinophils (%) (Auto) 1.4, Basophils (%) (Auto) 0.2, Neutrophils # (Auto) 6.2, Lymphocytes # (Auto) 1.4L, Monocytes # (Auto) 0.6, Eosinophils # (Auto) 0.1, Basophils # (Auto) 0.0, Nucleated Red Blood Cells % (auto) 0.0, Anion Gap 7L, Glomerular Filtration Rate > 60.0, Blood Urea Nitrogen 16, Creatinine 0.96, Sodium Level 134L, Potassium Level 4.0, Chloride Level 101, Carbon Dioxide Level 26, Calcium Level 9.3, C- Reactive Protein, Quantitative 3.06H 05/20/18 11:29: Bedside Glucose (Misc Panel) 371H CBC/BMP Laboratory Tests 05/20/18 05:55 Red Blood Count 3.94 L, Mean Corpuscular Volume 86.3, Mean Corpuscular Hemoglobin 29.9, Mean Corpuscular Hemoglobin Concent 34.7, Red Cell Distribution Width 11.5, Neutrophils (%) (Auto) 74.2 H, Lymphocytes (%) (Auto) 16.8 L, Monocytes (%) (Auto) 7.0 H, Eosinophils (%) (Auto) 1.4, Basophils (%) (Auto) 0.2, Neutrophils # (Auto) 6.2, Lymphocytes # (Auto) 1.4 L, Monocytes # (Auto) 0.6, Eosinophils # (Auto) 0.1, Basophils # (Auto) 0.0, Calcium Level 9.3 Microbiology Microbiology 05/13/18 Blood Culture - Final, Complete NO GROWTH AFTER 5 DAYS 05/14/18 MRSA Screen - Final, Complete DAGMAR HUDSON MD May 20, 2018 12:13
[2018-05-20 14:00] VITALS: BP 144/67
--- NOTE | 2018-05-20 14:30 | IPN ---
DATE OF ADMISSION: 05/13/2018 Patient seen and examined at bedside. Denies any overnight complaints. States his pain is controlled. Vitals were viewed. He is afebrile. Labs are reviewed. White blood cell count is 8.3, hemoglobin is 11.8, CRP is 3.06. Lower extremity examination: Erythema and edema are improved. Incision is coapted. ASSESSMENT: 77-year-old male status post left hallux 1st metatarsal partial amputation. PLAN: Patient okay to be discharged tomorrow on oral doxycycline. Change dressings daily. Telfa, Nathaniel and jc wrap. He is to wear postoperative shoe when ambulating and followup in the office with me next week.
[2018-05-20 18:00] VITALS: BP 144/70
[2018-05-20 22:00] VITALS: BP 119/64
[2018-05-21] MEDS: DOXYCYCLINE HYCLATE 100 MG in D5W MINI-BAG PLUS 100 ML IV SCH (01:18)
[2018-05-21 06:00] VITALS: BP 130/72
[2018-05-21 08:00] LABS: BASO % 0.2 % (0.0-1.0); EOS # 0.1 10^3/uL (0.0-0.50); EOS % 1.4 % (0.0-3.0); HEMATOCRIT 34.3 % (42.0-52.0); HEMOGLOBIN 11.5 g/dl (13.5-17.5); LYMPH # 1.7 10^3/uL (1.5-4.5); LYMPH % 19.4 % (24.0-44.0); MEAN CORPUSCULAR HEMOGLOBIN 29.7 pg (27.0-33.0); MEAN CORPUSCULAR HGB CONC 33.5 g/dl (32.0-36.5); MEAN CORPUSCULAR VOLUME 88.6 fl (80.0-96.0); MONO # 0.6 10^3/uL (0.0-0.8); MONO % 7.1 % (0.0-5.0); NEUTROPHILS # 6.1 10^3/uL (1.8-7.7); NEUTROPHILS % 71.5 % (36.0-66.0); PLATELET COUNT, AUTOMATED 391 10^3/uL (150-450); RED BLOOD COUNT 3.87 10^6/uL (4.30-6.10); WHITE BLOOD COUNT 8.6 10^3/uL (4.0-10.0)
[2018-05-21 08:26] LABS: BLOOD UREA NITROGEN 15 MG/DL (7-18); CALCIUM LEVEL 9.1 MG/DL (8.8-10.2); CARBON DIOXIDE LEVEL 26 MEQ/L (21-32); CHLORIDE LEVEL 101 MEQ/L (98-107); CREATININE FOR GFR 0.96 MG/DL (0.70-1.30); GLOMERULAR FILTRATION RATE > 60.0 (>42); GLUCOSE, FASTING 202 MG/DL (70-100); MAGNESIUM LEVEL 1.8 MG/DL (1.8-2.4); SODIUM LEVEL 136 MEQ/L (136-145)
[2018-05-21] MEDS: SENNA 8.6 MG TAB (SENOKOT) PO SCH (08:33)
[2018-05-21] MEDS: HumaLOG INSULIN (NovoLOG) PER UNIT SC SCH ×2 (08:33→12:51)
[2018-05-21 08:34] VITALS: BP 130/72
[2018-05-21] MEDS: METOPROLOL TART 25 MG TABLET PO SCH (08:34)
[2018-05-21] MEDS: amLODIPine 10 MG TAB PO SCH (08:34)
[2018-05-21] MEDS: LEVEMIR (INSULIN DETEMIR) 1 UNITS/0.01ML SC SCH (08:34)
[2018-05-21] MEDS ORDERED: DOXYCYCLINE HYCLATE 100 MG TAB PO SCH (09:00)
[2018-05-21] MEDS: PERCOCET 5MG/325MG TAB PO PRN (09:41)
[2018-05-21] MEDS ORDERED: PERCOCET PO (12:23)
[2018-05-21] MEDS ORDERED: DOXY100T PO (12:23)
--- NOTE | 2018-05-21 20:07 | DSES ---
DATE OF ADMISSION: 05/13/2018 DATE OF DISCHARGE: 05/21/2018 CONSULTANTS: Dr. Burnette DISCHARGE DIAGNOSES: 1. Diabetic foot ulcer. 2. Chronic kidney disease. 3. Hypertension. 4. Diabetes. 5. History of coronary artery disease status post bypass. PROCEDURES: 1. Left foot first metatarsal head resection and wound closure 05/19/2018. 2. Left hallux amputation on 05/15/2018. HOSPITALIZATION COURSE: Patient is a 37-year-old gentleman who presented from podiatric office for left lower extremity diabetic foot infection. Patient admitted under hospitalist service and podiatry is consulted. Patient started on empiric antibiotics. On 05/15/2018 patient was brought to the OR for left hallux amputation. Patient tolerated the procedure well. On 05/19/2018 patient was brought back to the OR for left foot first metatarsal head resection and wound closure. No complication was noted. Later patient followed with physical therapy and after the podiatry evaluation patient determined stable for discharge with recommendation to continue doxycycline. Patient should follow with podiatry office in 1-2 weeks. VITAL SIGNS: Day of discharge; temperature 98.7, pulse 80, respirations 18, blood pressure 130/72, pulse ox 96% on room air. LABORATORY DATA: Showed WBC 8.6, hemoglobin 11.5, hematocrit 34.3, platelet count is 391, sodium is 136, potassium 4, chloride 101, carbon dioxide 26, BUN 15, creatinine 0.96. Glomerular filtration rate (GFR) greater than 60, fasting glucose is 202, calcium is 9.1, magnesium 1.8. Microbiology: Blood culture form 05/13/2018 showed no growth after 5 days. Methicillin-resistant Staphylococcus aureus (MRSA) screening on 05/14/2018 is negative. IMAGING STUDY: Left foot x-ray 05/13/2018 showed area of soft tissue irregularities and thinning of the medial aspect of the proximal phalanx of the great toe. Vascular calcifications. No acute bony abnormalities. DISCHARGE MEDICATIONS: - doxycycline 100 mg by mouth twice a day for 2 weeks - Percocet 5/325 1 tabled by mouth every 8 hours as needed, 5 day supply - amlodipine 10 mg by mouth every day - aspirin 81 mg by mouth every day - gemfibrozil 600 mg by mouth twice a day - glipizide 10 mg by mouth every morning - glipizide 5 mg by mouth every evening - ibuprofen 600 mg by mouth twice a day as needed for pain - Lantus SoloSTAR 22 units subcutaneously every evening - metformin 1000 mg by mouth twice a day - metoprolol tartrate 25 mg by mouth every day - multivitamin 1 tablet by mouth every day - spironolactone 25 mg by mouth every day DISCHARGE INSTRUCTIONS: Discontinue line. Discharge home with home care. Activity with use of cane as tolerated. Consistent carbohydrate diet as tolerated. Patient should follow with primary care provider in 1-2 weeks. Patient should also follow with podiatry Dr. Burnette in 1-2 weeks. Patient should finish course of doxycycline as instructed. DISCHARGE CONDITION: Fair. DISCHARGE TIME: Greater than 30 minutes.
== END 2018-05-21 13:50 | disposition home or self-care (01) | DRG 617 ==
LOC: M MS5PR 16:01
PROVIDERS: ADMIT Internal Medicine; ATTEND Internal Medicine
PROC: 0Y6Q0Z3 Detachment at Left 1st Toe, Low, Open Approach (ICD-10-PCS; principal; 2018-05-15 08:55)
PROC: 0STN0ZZ Resection of Left Metatarsal-Phalangeal Joint, Open Approach (ICD-10-PCS; 2018-05-19)
DX: E11.621 Type 2 diabetes mellitus with foot ulcer (principal); E11.52 Type 2 diabetes mellitus with diabetic peripheral angiopathy with gangrene; E87.1 Hypo-osmolality and hyponatremia; E11.622 Type 2 diabetes mellitus with other skin ulcer; N18.3 Chronic kidney disease, stage 3 (moderate); I25.10 Atherosclerotic heart disease of native coronary artery without angina pectoris; Z79.899 Other long term (current) drug therapy; Z79.82 Long term (current) use of aspirin; E78.5 Hyperlipidemia, unspecified; Z88.0 Allergy status to penicillin; Z88.8 Allergy status to other drugs, medicaments and biological substances; Z85.820 Personal history of malignant melanoma of skin; E83.52 Hypercalcemia; Z95.1 Presence of aortocoronary bypass graft

== ENCOUNTER → 2018-05-13 | Outpatient (REF) | payer MEDICARE ==
[~2018-05-13] MED LIST changes: -DOXY100T PO; -PERCOCET PO
== END ==
LOC: M LAB REF 16:27
PROVIDERS: ATTEND Podiatrist Foot & Ankle Surgery
DX: L89.894 Pressure ulcer of other site, stage 4 (principal); E11.621 Type 2 diabetes mellitus with foot ulcer

== ENCOUNTER → 2018-06-20 | Outpatient (CLI) | payer MEDICARE ==
[~2018-06-20] MED LIST changes: +AMLO10TA5 PO; +BACT800T5 PO; +DOXY100T PO; +GLIP5TAB8 PO; +METF-877 PO; +METO25TA4 PO; +OMEG10002 PO; +PERCOCET PO; +SPIR-10 PO; +VITMTA PO
--- NOTE | 2018-06-20 10:34 | REP ---
Right lower extremity arterial Doppler ultrasound: Peak Systolic Phasicity Velocity RN LIAISON 91.1 triphasic Profunda 104.6 biphasic SFA prox 58.3 biphasic SFA mid 75 biphasic SFA dist 48 biphasic Pop 55 triphasic FAMILIA prox 43 biphasic Tib/P tr 45 triphasic [employer] WORKER pr 27 - 177 - [employer]ER dst occluded - FAMILIA dst 22 monophasic There is severe calcific plaque in the calf vessels. There is severe stenosis in the mid [employer]ING WORKER and the occlusion of the distal [employer]ING WORKER. There is collateral flow associated with the occlusion. The FAMILIA is in a very small vessel with very slow flow. There is mild to moderate calcific plaque from the popliteal artery to the posterior tibial trunk. Electronically Signed by Ryley Lujan MD 06/20/2018 10:25 A
== END ==
LOC: M RAD 09:17
PROVIDERS: ATTEND Podiatrist Foot & Ankle Surgery
DX: I70.248 Atherosclerosis of native arteries of left leg with ulceration of other part of lower leg (principal)

== ENCOUNTER → 2018-08-30 | Outpatient (REF) | payer MEDICARE ==
[~2018-08-30] MED LIST changes: -/GLYB5TA OR; -ASPI1TAB PO; +ASPI81TA26 PO; +GLYB1TAB29 OR
[2018-08-30 18:19] LABS: ALBUMIN 4.2 GM/DL (3.2-5.2); ALT/SGPT 34 U/L (12-78); BILIRUBIN,TOTAL 0.5 MG/DL (0.2-1.0); BLOOD UREA NITROGEN 26 MG/DL (7-18); CALCIUM LEVEL 10.3 MG/DL (8.8-10.2); CARBON DIOXIDE LEVEL 26 MEQ/L (21-32); CHLORIDE LEVEL 103 MEQ/L (98-107); CHOLESTEROL LEVEL 163 MG/DL (<200); CHOLESTEROL RISK RATIO 4.657 (<5); CREATININE FOR GFR 1.12 MG/DL (0.70-1.30); GLOMERULAR FILTRATION RATE > 60.0 (>42); GLUCOSE, FASTING 231 MG/DL (70-100); HDL CHOLESTEROL 35 MG/DL (>40); LDL CHOLESTEROL 80 MG/DL (<100); NON-HDL-C 128 MG/DL; POTASSIUM SERUM 4.4 MEQ/L (3.5-5.1); SODIUM LEVEL 135 MEQ/L (136-145); TOTAL PROTEIN 8.5 GM/DL (6.4-8.2); TRIGLYCERIDES LEVEL 242 MG/DL (<150)
[2018-08-30 18:50] LABS: HEMOGLOBIN A1c 8.7 %
== END ==
LOC: M SFHCCLAY 10:57
PROVIDERS: ATTEND Family Medicine
DX: E11.51 Type 2 diabetes mellitus with diabetic peripheral angiopathy without gangrene (principal)

== ENCOUNTER → 2018-10-14 | Outpatient (CLI) | payer MEDICARE ==
--- NOTE | 2018-10-14 14:09 | REP ---
LEFT LOWER EXTREMITY DUPLEX DOPPLER ARTERIAL ULTRASOUND: Real-time sonographic ultrasound evaluation and duplex Doppler interrogation of the left lower extremity deep venous system is performed. Comparison made with prior study of 06/20/2018. Once again there is occlusion of the distal posterior tibial artery with collateral artery posteriorly traversing into the foot. Mid anterior tibial artery is occluded with reconstitution distally. Biphasic and triphasic waveforms are seen throughout, with monophasic waveform in the distal anterior tibial artery. Findings have not significantly changed since the prior exam. PEAK SYSTOLIC VELOCITY LEFT Common femoral artery 87 cm/s Profunda 117 Proximal SFA 63 Superficial femoral artery mid 76 Superficial femoral artery distal 81 Popliteal 77 Proximal anterior tibial artery 61 Tibial peroneal trunk 56 Proximal posterior tibial artery 41 Distal posterior tibial artery occluded Distal anterior tibial artery 28 IMPRESSION: No significant change when compared to the prior study as discussed in detail above. Electronically Signed by Ryley Hernandez MD 10/15/2018 12:36 P
== END ==
LOC: M RAD 11:04
PROVIDERS: ATTEND Surgery Vascular Surgery
DX: I70.213 Atherosclerosis of native arteries of extremities with intermittent claudication, bilateral legs (principal)

== ENCOUNTER → 2018-11-19 | Outpatient (REF) | payer MEDICARE ==
[2018-11-20 11:41] LABS: ALBUMIN 4.1 GM/DL (3.2-5.2); BILIRUBIN,TOTAL 0.2 MG/DL (0.2-1.0); CALCIUM LEVEL 9.8 MG/DL (8.8-10.2); CREATININE FOR GFR 1.24 MG/DL (0.70-1.30); GLOMERULAR FILTRATION RATE 59.7 (>35); POTASSIUM SERUM 4.3 MEQ/L (3.5-5.1); TOTAL PROTEIN 7.9 GM/DL (6.4-8.2)
[2018-11-20 11:53] LABS: HEMOGLOBIN A1c 8.1 %
== END ==
LOC: M SFHCCLAY 14:53
PROVIDERS: ATTEND Family Medicine
DX: E11.51 Type 2 diabetes mellitus with diabetic peripheral angiopathy without gangrene (principal)
CPT/HCPCS: 80053; 83036; G0463

== ENCOUNTER → 2019-03-04 | Outpatient (REF) | payer MEDICARE ==
[2019-03-05 11:40] LABS: BILIRUBIN,TOTAL 0.4 MG/DL (0.2-1.0); CALCIUM LEVEL 9.9 MG/DL (8.8-10.2); CREATININE FOR GFR 1.29 MG/DL (0.70-1.30); GLOMERULAR FILTRATION RATE 57.1 (>35); POTASSIUM SERUM 4.5 MEQ/L (3.5-5.1); TOTAL PROTEIN 7.8 GM/DL (6.4-8.2)
== END ==
LOC: M SFHCCLAY 14:01
PROVIDERS: ATTEND Family Medicine
DX: E11.51 Type 2 diabetes mellitus with diabetic peripheral angiopathy without gangrene (principal)
CPT/HCPCS: 80053; 83036; G0463

== ENCOUNTER → 2019-05-21 | Outpatient (CLI) | payer MEDICARE ==
--- NOTE | 2019-05-21 14:35 | REP ---
BILATERAL LOWER EXTREMITY DUPLEX DOPPLER ARTERIAL ULTRASOUND: Real-time ultrasound evaluation and duplex Doppler interrogation of the bilateral lower extremity arterial systems is performed. Moderate plaque is seen diffusely bilaterally. Triphasic and biphasic waveforms are seen throughout the right lower extremity except for mild phasic waveforms in the distal anterior and posterior tibial arteries. There is occlusion of the distal left posterior tibial artery. Proximal to that, there are diffuse biphasic and triphasic waveforms. Monophasic waveforms seen in the distal left anterior tibial artery. Collateral vessel is seen posterior to the left posterior tibial artery. There is occlusion of a mid left anterior tibial artery with reconstitution distally. There is no change since the prior study of 10/14/2018. Right Peak Left Peak Systolic Velocity Systolic velocity Common femoral artery 119.0 cm/s 78.6 cm/s Profunda 100.0 cm/s 123 cm/s Proximal SFA 62.9 cm/s 86.2 cm/s Mid SFA 55.3 cm/s 82.3 cm/s Distal SFA 63.1 cm/s 72.4 cm/s Popliteal 41.2 cm/s 65.4 cm/s Proximal FAMILIA 64.8 cm/s 87.3 cm/s Tibial peroneal trunk 42.0 cm/s 54.6 cm/s Proximal HE[employer] TEACHER 35.4 cm/s 36.5 cm/s Distal HE[employer] DIAG[employer] TEACHER 24.8 cm/s occluded Distal FAMILIA 35.7 cm/s 20.3 cm/s Electronically Signed by Ryley Hernandez MD 05/21/2019 05:39 P
== END ==
LOC: M RAD 11:17
PROVIDERS: ATTEND Physician Assistant
DX: I70.213 Atherosclerosis of native arteries of extremities with intermittent claudication, bilateral legs (principal)

== ENCOUNTER → 2019-06-03 | Outpatient (REF) | payer MEDICARE ==
[2019-06-03 18:39] LABS: ALBUMIN 4.3 GM/DL (3.2-5.2); ALT/SGPT 32 U/L (12-78); BILIRUBIN,TOTAL 0.4 MG/DL (0.2-1.0); BLOOD UREA NITROGEN 24 MG/DL (7-18); CALCIUM LEVEL 10.4 MG/DL (8.8-10.2); CARBON DIOXIDE LEVEL 27 MEQ/L (21-32); CHLORIDE LEVEL 102 MEQ/L (98-107); CREATININE FOR GFR 1.19 MG/DL (0.70-1.30); GLOMERULAR FILTRATION RATE > 60.0 (>35); GLUCOSE, FASTING 306 MG/DL (70-100); POTASSIUM SERUM 4.4 MEQ/L (3.5-5.1); SODIUM LEVEL 135 MEQ/L (136-145); TOTAL PROTEIN 8.1 GM/DL (6.4-8.2)
[2019-06-03 19:02] LABS: HEMOGLOBIN A1c 8.5 %
== END ==
LOC: M SFHCCLAY 11:23
PROVIDERS: ATTEND Family Medicine
DX: E11.51 Type 2 diabetes mellitus with diabetic peripheral angiopathy without gangrene (principal); E11.22 Type 2 diabetes mellitus with diabetic chronic kidney disease
CPT/HCPCS: 80053; 83036; G0463

== ENCOUNTER → 2019-06-04 | Outpatient (REF) | payer MEDICARE | LOC: M LAB REF 09:14 | PROVIDERS: ATTEND Dermatology | DX: L57.0 Actinic keratosis (principal); L90.5 Scar conditions and fibrosis of skin ==

== ENCOUNTER 2019-06-24 11:26 | Emergency (ER) | payer MEDICARE ==
[~2019-06-24] VITALS: Ht 182.9 cm; Wt 78.2 kg
--- NOTE | 2019-06-24 12:09 | REP ---
Clinical: Trauma. Technique: AP, lateral, bilateral oblique views of the left ankle. Findings: Nondisplaced oblique fracture of the distal fibular metaphysis with overlying soft tissue swelling. Peripheral vascular disease. Impression: Oblique fracture of the distal fibular metaphysis. Electronically Signed by Paolo Sky MD 06/24/2019 12:01 P
--- NOTE | 2019-06-24 12:11 | REP ---
Clinical: Trauma. Fall. Technique: AP, lateral, bilateral oblique and sunrise views of the left knee. Findings: Anterior swelling. Mild age-related degenerative changes. No acute fracture dislocation. No obvious effusion. Impression: Age-related changes. Mild anterior swelling. No acute fracture or dislocation. Electronically Signed by Paolo Sky MD 06/24/2019 12:03 P
[2019-06-24] MEDS ORDERED: ACETAMINOPHEN 325 MG TAB PO ONE (13:45)
[2019-06-24 15:21] VITALS: BP 135/65
--- NOTE | 2019-06-24 15:50 | REP ---
Clinical: Distal fibular fracture. Technique: AP and lateral views of the left tibia / fibula. Findings: An oblique fracture of the distal fibular metaphysis is appreciated with overlying soft tissue swelling. Alignment appears relatively satisfactory. Electronically Signed by Paolo Sky MD 06/24/2019 03:42 P
[2019-06-24] MEDS ORDERED: PERCOCET PO (15:57)
--- NOTE | 2019-06-25 07:23 | REP ---
Clinical: Trauma. Technique: AP and oblique views of the left distal tibia / fibula. Findings: There is an oblique fracture of the distal fibular metaphysis. The ankle mortise remains relatively stable. Overlying soft tissue swelling noted. Impression: Oblique fracture of the distal fibular metaphysis. Electronically Signed by Paolo Sky MD 06/24/2019 01:15 P
== END 2019-06-24 16:18 | disposition home or self-care (01) ==
LOC: M ED 11:26
DX: S82.832A Other fracture of upper and lower end of left fibula, initial encounter for closed fracture (principal); X50.1XXA Overexertion from prolonged static or awkward postures, initial encounter; Y92.099 Unspecified place in other non-institutional residence as the place of occurrence of the external cause; Y93.9 Activity, unspecified; Y99.9 Unspecified external cause status; I25.10 Atherosclerotic heart disease of native coronary artery without angina pectoris; I10 Essential (primary) hypertension; E11.9 Type 2 diabetes mellitus without complications; Z79.82 Long term (current) use of aspirin; Z79.4 Long term (current) use of insulin; Z79.899 Other long term (current) drug therapy; Z88.0 Allergy status to penicillin; Z88.8 Allergy status to other drugs, medicaments and biological substances

== ENCOUNTER 2019-07-21 18:31 | Inpatient (IN) | payer MEDICARE ==
[~2019-07-21] VITALS: Ht 182.9 cm; Wt 82.9 kg
--- NOTE | 2019-07-21 19:08 | REPVR ---
PROCEDURE INFORMATION: Exam: CT Head Without Contrast Exam date and time: 07/21/2019 6:47 PM Age: 78 years old Clinical indication: Injury or trauma; Fall; Initial encounter; Blunt trauma (contusions or hematomas) TECHNIQUE: Imaging protocol: Computed tomography of the head without contrast. Radiation optimization: All CT scans at this facility use at least one of these dose optimization techniques: automated exposure control; mA and/or kV adjustment per patient size (includes targeted exams where dose is matched to clinical indication); or iterative reconstruction. COMPARISON: No relevant prior studies available. FINDINGS: Brain: Global cerebral atrophy is consistent with patient's age. Decreased attenuation within the white matter tracts of both cerebral hemispheres is nonspecific but typically seen with small vessel disease/chronic white matter ischemic changes of aging. No intracranial hemorrhage or mass effect. Senescent calcification within the basal ganglia. Ventricles: Unremarkable. No ventriculomegaly. Bones/joints: Unremarkable. No acute fracture. Sinuses: Visualized sinuses are unremarkable. No fluid levels. Mastoid air cells: Visualized mastoid air cells are well aerated. Soft tissues: Unremarkable. Vasculature: Atherosclerosis of the cavernous carotid and vertebral arteries. IMPRESSION: No acute abnormality. Electronically signed by: Vic Woodruff On 07/21/2019 19:08:34 PM
--- NOTE | 2019-07-21 19:13 | REPVR ---
PROCEDURE INFORMATION: Exam: CT Cervical Spine Without Contrast Exam date and time: 07/21/2019 6:47 PM Age: 78 years old Clinical indication: Injury or trauma; Fall; Initial encounter; Blunt trauma TECHNIQUE: Imaging protocol: Computed tomography images of the cervical spine without contrast. Radiation optimization: All CT scans at this facility use at least one of these dose optimization techniques: automated exposure control; mA and/or kV adjustment per patient size (includes targeted exams where dose is matched to clinical indication); or iterative reconstruction. COMPARISON: No relevant prior studies available. FINDINGS: Vertebrae: No fracture or subluxation. Discs/Spinal canal/Neural foramina: Degenerative disc disease and facet arthrosis is present throughout the cervical spine. Mild bony spinal stenosis at C6-C7. Retropharyngeal space: The retropharyngeal soft tissues are unremarkable. Lungs: Lung apices are clear. IMPRESSION: No fracture. Electronically signed by: Vic Woodruff On 07/21/2019 19:13:39 PM
[2019-07-21 19:44] LABS: BASO % 0.4 % (0.0-1.0); EOS # 0.1 10^3/uL (0.0-0.5); EOS % 1.9 % (0.0-3.0); HEMOGLOBIN 13.1 g/dl (13.5-17.5); LYMPH # 1.9 10^3/uL (1.5-5.0); MEAN CORPUSCULAR HGB CONC 33.6 g/dl (32.0-36.5); MEAN CORPUSCULAR VOLUME 89.4 fl (80.0-96.0); MONO # 0.5 10^3/uL (0.0-0.8); MONO % 8.7 % (0.0-5.0); NEUTROPHILS # 2.7 10^3/uL (1.5-8.5); NEUTROPHILS % 52.4 % (36.0-66.0); PLATELET COUNT, AUTOMATED 265 10^3/uL (150-450); RED BLOOD COUNT 4.36 10^6/uL (4.30-6.10); WHITE BLOOD COUNT 5.2 10^3/uL (4.0-10.0)
--- NOTE | 2019-07-21 19:54 | REP ---
CHEST, SINGLE VIEW: COMPARISON: 09/15/2016 No acute infiltrate is seen. Both lungs are clear. Heart is not significantly enlarged. Mediastinal silhouette is unchanged. Multiple sternal wires are present. IMPRESSION: No acute pulmonary disease. Electronically Signed by Ryley Hernandez MD 07/21/2019 08:00 P
[2019-07-21 19:55] LABS: INR 1.1; PROTHROMBIN TIME 13.9 SECONDS (11.8-14.0)
[2019-07-21 20:04] LABS: ALBUMIN 3.7 GM/DL (3.2-5.2); ALT/SGPT 31 U/L (12-78); BILIRUBIN,TOTAL 0.2 MG/DL (0.2-1.0); BLOOD UREA NITROGEN 25 MG/DL (7-18); CALCIUM LEVEL 9.7 MG/DL (8.8-10.2); CARBON DIOXIDE LEVEL 26 MEQ/L (21-32); CHLORIDE LEVEL 103 MEQ/L (98-107); CREATININE FOR GFR 1.04 MG/DL (0.70-1.30); GLOMERULAR FILTRATION RATE > 60.0 (>35); GLUCOSE, FASTING 192 MG/DL (70-100); NT-PRO BNP 16 PG/ML (<450); POTASSIUM SERUM 4.6 MEQ/L (3.5-5.1); SODIUM LEVEL 135 MEQ/L (136-145); TOTAL PROTEIN 7.7 GM/DL (6.4-8.2)
--- NOTE | 2019-07-21 20:26 | REPVR ---
PROCEDURE INFORMATION: Exam: US Duplex Right Lower Extremity Veins, Limited Exam date and time: 07/21/2019 8:16 PM Age: 78 years old Clinical indication: Swelling (edema) of limb; Lower extremity, right TECHNIQUE: Imaging protocol: Real-time Duplex ultrasound of the Right Lower Extremity with 2-D salmon scale, color Doppler flow and spectral waveform analysis with image documentation. Limited exam was focused on the right lower extremity veins. COMPARISON: US Duplex, Ext,LOWER veins,unilat 09/18/2014 10:32 AM FINDINGS: Right deep veins: Unremarkable. The common femoral, femoral, proximal profunda femoral and popliteal veins are patent without thrombus. Normal Doppler waveforms. Normal compressibility and/or augmentation response. Right superficial veins: Unremarkable. Saphenofemoral junction is patent without thrombus. Soft tissues: Lower leg edema. IMPRESSION: Lower leg edema. No DVT. Electronically signed by: Paulo Caballero On 07/21/2019 20:26:01 PM
[2019-07-21 20:58] LABS: ERYTHROCYTE SEDIMENTATION RATE 47 mm/hr (0-20)
[2019-07-21] MEDS ORDERED: GLUCOSE 4 GM CHEW TABLET PO PRN (22:00)
[2019-07-21] MEDS ORDERED: DEXTROSE 50% 50 ML SYRINGE IV PRN (22:00)
[2019-07-21] MEDS ORDERED: ACETAMINOPHEN TAB 650MG DOSE (2X325MG) PO PRN (22:00)
[2019-07-21] MEDS ORDERED: GLUCAGON FOR INJ 1 MG VIAL (J1610) SC PRN (22:00)
--- NOTE | 2019-07-21 22:04 | HPEPDOC ---
[facility] Medical History & Physical Date of Admission Jul 21, 2019 Date of Service: Jul 21, 2019 Primary Care Physician: Mohinder Orr Attending Physician: KATELYNN CHUNG MD History and Physical TIME OF SERVICE: 1005 PM CHIEF COMPLAINT: Right arm weakness and right foot swelling HISTORY OF PRESENT ILLNESS: This is an 78-year-old male who came to the hospital because his daughters insisted that he come in for evaluation of progressively worsening right arm weakness, right leg weakness and and right foot swelling. He has had multiple falls recently; over month ago he broke his left foot as result of the fall. He had another fall 3 weeks ago, and another fall today. His also complaining of a headache and chronic neck pain. He denies having fevers, chills, chest pain, dyspnea, shortness of breath, or abdominal pain. Per discussion with Gee Veronica initial workup including blood work and CT of the head, right lower extremity ultrasound were unrevealing. The patient can't have an MRI because he has "metal" in his neck. REVIEW OF SYSTEMS: 12 point review of systems negative except as listed in HPI PAST MEDICAL/ SURGICAL HISTORY: IDDM CAD/CABG/dyslipidemia. 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 History of melanoma SOCIAL HISTORY: He started smoking when he was 12 and quit in 1968 He doesn't drink. He lives independently with his FAMILY HISTORY: Lung disease Alcoholism ALLERGIES: Please see below. HOME MEDICATIONS: Please see below. Vital Signs Date Time Temp Pulse Resp B/P (MAP) Pulse Ox O2 Delivery O2 Flow Rate FiO2 07/21/19 18:31 97.6 63 19 141/71 (94) 98 Room Air PHYSICAL EXAMINATION: GEN: well-nourished / well developed/ NAD INTEGUMENT: He has actinic keratosis/and a small raised lesion on his right lower arm HEENT: NCAT / mucus membranes moist and pink CVS: RRR/NMRG/ +1 right lower extremity edema LUNGS: able to speak full sentences without stopping to take a breath / lungs are clear to auscultation bilaterally on room air ABDOMEN: Contour (obese) / there are no masses or lesions / bowel sounds are present / soft & not tender with palpation MSK/EXTREMITIES: range of motion intact in all 4 extremities NEURO: speech is not dysarthric / strength 4/5 at the right lower extremity / 5/5 at the left lower extremity / -5/5 at both upper extremities PSYCH: alert and oriented to person place and time/ able to understand and follow all commands LABORATORY DATA: Erythrocyte Sedimentation Rate 47H, Prothrombin Time 13.9, Prothromb Time International Ratio 1.10, Anion Gap 6L, Glomerular Filtration Rate > 60.0, Calcium Level 9.7, Total Bilirubin 0.2, Aspartate Amino Transf (AST/SGOT) 20, Alanine Aminotransferase (ALT/SGPT) 31, Alkaline Phosphatase 66, AY-Wbe-I-Type Natriuretic Peptide 16, Total Protein 7.7, Albumin 3.7, Albumin/Globulin Ratio 0.93L IMAGING: CT head without contrast "IMPRESSION: No acute abnormality" CT cervical spine "IMPRESSION: No fracture. " Chest x-ray "IMPRESSION: No acute pulmonary disease." Vascular US "IMPRESSION: Lower leg edema. No DVT. " MICROBIOLOGY: Please see below. ASSESSMENT: Mr. Yoo is an 78-year-old with a history of IDDM, CAD, CABG, HTN, HFpEF, and multiple malignancies who is admitted for evaluation of progressively worsening right arm and leg weakness who's cause is TBD. PLAN: 1. Right arm and leg weakness. Differential includes CVA versus mets to the brain Less likely result of deconditioning CT of the head was unrevealing. Plan: admit to medical floor/ telemetry /fall precautions / pending EKG, carotid US, lipid panel, A1C, TSH & Echo the day time team may consider consulting Neurology/ will ask the daytime team to talk with the Radiologist consulting technical manager tomorrow to see if the "metal in his neck" is an absolute contraindication to using our MRI machines / PT/OT/SPL consults / start ASA 325mg now and c/w 81 mg daily / c/w gemfibrozil and omega-3 / will not order permissive hypertension bc the weakness has been going on for several days 2 Right Leg Swelling cause TBD. It's difficult to determine if the right leg s welling is truly "unilateral" because his left leg is in a cast. The US was negative, he doesn't have crakles, his BNP is 16 and the US was negative. - Plan: elevate leg / if the leg swelling doesn't improve the day time team may consider holding amlodipine which can cause LE edema tomorrow 3. IDDM2 - Plan: diabetic diet / f/u accuchecks & A1C / hypoglycemia protocol / sliding scale insulin / hold oral anti-glycemics / determir 22 units QHS (his home med is glargine 22 units QHS)/ since he is already taking Metformin and has CAD he is a candidate for empagliflozin to reduce the risk of CVD , the day time team can add to his discharge meds 4. Chronic CAD w hx of CABG - Plan: c/ w ASA, metoprolol and gemfibrozil 5. Chronic HFpEF likely 2/2 Chronic HTN - Plan: c/w amlodipine, metoprolol & spironolactone 6. Polypharmacy - Plan: d/c Ibuprofen because it is associated with an increased risk of CAD/CVA events, it increased BP & the risk of heart failure DVT PROPHYLAXIS: Rogelio DISPOSITION: Home vs in-pt rehab after more than 2 midnight's stay Home Medications Scheduled Amlodipine Besylate (Amlodipine Besylate) 10 Mg Tab, 10 MG PO DAILY Arginine HCl (l-Arginine) 1,000 Mg Tablet, 2,000 MG PO DAILY Aspirin (Aspirin EC) 81 Mg Tablet.dr, 81 MG PO DAILY Gemfibrozil (Gemfibrozil) 600 Mg Tab, 600 MG PO BID Glipizide (Glipizide) 5 Mg Tab, 10 MG PO DAILY Glipizide (Glipizide) 5 Mg Tab, 5 MG PO QHS Insulin Glargine,Hum.rec.anlog (Lantus Solostar) 100 Unit/Ml Inj, 22 UNITS SC QHS Metformin HCl (Metformin HCl) 1,000 Mg Tab, 1,000 MG PO BID Metoprolol Tartrate (Metoprolol Tartrate) 25 Mg Tab, 12.5 MG PO DAILY [place]-3/Dha/Epa/Fish Oil ([place]-3 Fish Oil 1,000 mg Sfgl) 1,000 Mg Capsule, 1 CAP PO BID Spironolactone (Spironolactone) 25 Mg Tab, 25 MG PO DAILY Scheduled PRN Ibuprofen (Ibu-200) 200 Mg Tab, 800 MG PO TID PRN for PAIN Allergies Coded Allergies: Penicillins (Verified Allergy, Mild, RASH, 06/24/19) Eynixnl-Plw-Jru Reductase Inhibitor (Verified Allergy, Unknown, MYALGIA, 07/21/19) cephalexin (Verified Allergy, Unknown, RASH, 07/21/19) clindamycin (Verified Allergy, Unknown, HIVES, 07/21/19) cyclobenzaprine (Verified Allergy, Unknown, HIVES, 07/21/19) ezetimibe (Verified Allergy, Unknown, BONE PAIN, 07/21/19) atorvastatin (Verified Adverse Reaction, Intermediate, LEG PAIN, 06/24/19) A-FIB/CHADSVASC A-FIB History Current/History of A-Fib/PAF?: No Current PO Anticoag Therapy: No KATELYNN CHUNG MD Jul 21, 2019 22:03
[2019-07-21] MEDS ORDERED: [UNRECOGNIZED DRUG - CODE] PO (22:40)
[2019-07-21] MEDS ORDERED: ASPI-161 PO (22:40)
[2019-07-21] MEDS ORDERED: OMEGCAP4 PO (22:40)
[2019-07-21 22:45] LABS: HEMOGLOBIN A1c 8.4 %
--- NOTE | 2019-07-21 23:01 | REPVR ---
PROCEDURE INFORMATION: Exam: US Duplex Bilateral Extracranial Arteries Exam date and time: 07/21/2019 10:51 PM Age: 78 years old Clinical indication: Weakness, extremity; Bilateral TECHNIQUE: Imaging protocol: Real-time Duplex ultrasound scan of the bilateral carotid and vertebral arteries combining salmon scale, color Doppler and spectral waveform analysis. Bilateral exam. COMPARISON: CT Head without contrast 07/21/2019 6:44 PM FINDINGS: Right common carotid artery: Mild atherosclerotic changes distal segment. No occlusion or significant stenosis. Waveforms are normal. Right internal carotid artery: Mild atherosclerotic changes in the carotid bulb. No occlusion or significant the stenosis. Waveforms are normal. Right ICA/CCA ratio: Within normal limits. 0.6. The Right external carotid artery: No stenosis in the origin. Right vertebral artery: Unremarkable. Antegrade flow Left common carotid artery: [id number] atherosclerotic changes in the mid and distal segments. No occlusion or high-grade stenosis. Waveforms are normal. Left internal carotid artery: Mild atherosclerotic changes. No occlusion or high-grade stenosis. Waveforms are normal. Left ICA/CCA ratio: Within normal limits. 0.5 Left external carotid artery: No stenosis in the origin. Left vertebral artery: Unremarkable. Antegrade flow. IMPRESSION: 1. Atherosclerotic changes in both common carotid arteries without significant stenosis. 2. Mild atherosclerotic changes demonstrated in the right and left proximal ICAs with less than 50% stenosis consistent with a mild stenosis using SRU criteria. 3. Antegrade flow in both vertebral arteries. REFERENCES: Carotid Stenosis Reference using SRU criteria: Mild: less than 50% stenosis. ICA PSV is less than 125 cm/second and plaque or intimal thickening is visible. Moderate: 50-69% stenosis. ICA PSV is 125 to 230 cm/second and plaque is visible. Severe: 70-94% stenosis. ICA PSV is more than 230 cm/second and visible plaque and lumen narrowing are seen. Near occlusion: 95-99% stenosis. ICA PSV is variable and significant plaque and luminal narrowing are seen. Occluded: 100% stenosis. No flow identified. Electronically signed by: Paulo Caballero On 07/21/2019 23:01:48 PM
[2019-07-21] MEDS ORDERED: ASPIRIN 325 MG TAB PO ONE (23:15)
[2019-07-21 23:28] VITALS: BP 140/67
[2019-07-21 23:52] LABS: CHOLESTEROL LEVEL 221 MG/DL (<200); CHOLESTEROL RISK RATIO 7.892 (<5); HDL CHOLESTEROL 28 MG/DL (>40); LDL CHOLESTEROL 143 MG/DL (<100); NON-HDL-C 193 MG/DL; TRIGLYCERIDES LEVEL 250 MG/DL (<150)
[2019-07-22] MEDS: gemfibroziL 600 MG TAB PO SCH ×3 (00:39→20:38)
[2019-07-22] MEDS: OMEGA-3 1000MG CAPSULE PO SCH ×3 (00:39→20:37)
[2019-07-22] MEDS: LEVEMIR (INSULIN DETEMIR) 1 UNITS/0.01ML SC SCH ×2 (00:40→20:39)
[2019-07-22 06:00] VITALS: BP 138/71
[2019-07-22 08:10] LABS: HEMATOCRIT 38.8 % (42.0-52.0); HEMOGLOBIN 13.6 g/dl (13.5-17.5); MEAN CORPUSCULAR HEMOGLOBIN 31.4 pg (27.0-33.0); MEAN CORPUSCULAR HGB CONC 35.1 g/dl (32.0-36.5); MEAN CORPUSCULAR VOLUME 89.6 fl (80.0-96.0); PLATELET COUNT, AUTOMATED 271 10^3/uL (150-450); RED BLOOD COUNT 4.33 10^6/uL (4.30-6.10)
[2019-07-22 08:30] LABS: BLOOD UREA NITROGEN 22 MG/DL (7-18); CALCIUM LEVEL 9.7 MG/DL (8.8-10.2); CARBON DIOXIDE LEVEL 24 MEQ/L (21-32); CHLORIDE LEVEL 104 MEQ/L (98-107); CREATININE FOR GFR 1.03 MG/DL (0.70-1.30); GLOMERULAR FILTRATION RATE > 60.0 (>35); GLUCOSE, FASTING 148 MG/DL (70-100); POTASSIUM SERUM 4.4 MEQ/L (3.5-5.1); SODIUM LEVEL 136 MEQ/L (136-145)
[2019-07-22] MEDS: SPIRONOLACTONE 25 MG TAB PO SCH (08:36)
[2019-07-22] MEDS: DOCUSATE SODIUM 100 MG CAP PO SCH ×2 (08:37→20:37)
[2019-07-22] MEDS: amLODIPine 10 MG TAB PO SCH (08:37)
[2019-07-22] MEDS: METOPROLOL TART 12.5 MG PER 1/2 TAB PO SCH (08:37)
[2019-07-22] MEDS: ASPIRIN 81 MG ENTERIC TAB PO SCH (08:37)
[2019-07-22] MEDS: HumaLOG INSULIN (NovoLOG) PER UNIT SC SCH ×4 (08:37→20:39)
[2019-07-22] MEDS: ENOXAPARIN 40 MG/0.4 ML SYRINGE (J1650) SC SCH (08:38)
[2019-07-22 08:57] LABS: NT-PRO BNP 16 PG/ML (<450)
--- NOTE | 2019-07-22 10:24 | REP ---
CERVICAL SPINE SERIES: Full cervical spine series is performed with 7 views obtained. I see no evidence of fracture or dislocation. Vertebral bodies are normal in height and are well aligned. There is no perivertebral soft tissue swelling. There is tiny spurring diffusely. There is slight disc space narrowing at C3-4. There is mild disc space narrowing at C6-7. There is diffuse narrowing and sclerosis at the posterior fact joints. There may be mild neural foraminal narrowing bilaterally at C3-4 due to uncovertebral and facet spurring. Under reason for exam, there was a question of a metal implant. No metal implant is visualized in the region of the cervical spine. IMPRESSION: Degenerative changes as above. Electronically Signed by Ryley Hernandez MD 07/22/2019 11:02 A
--- NOTE | 2019-07-22 12:38 | IPN ---
DATE: 07/22/2019 Patient has no deep venous thrombosis (DVT) in the lower extremities. Still with right lower extremity swelling. Has a case on the left lower extremity. No fever or chills. Patient's face is symmetric. He has had three-week history of right upper extremity weakness, especially a decrease in transport analyst. CT of the head was negative for acute cerebrovascular accident (CVA). Per the patient, he was found to have a plate, unable to get an MRI of the brain. He has had neck surgeries in the past over 15 years ago and had MRIs back then. He does not recall having a plate in his neck. Chest x-ray: No acute infiltrate. Sternotomy wires are present. Awaiting physical therapy (PT), occupational therapy (OT) evaluation. PHYSICAL EXAMINATION: Temperature 98.1, pulse 60, respiratory 16, blood pressure 138/71, 96% on room air. Generally, awake, alert, oriented times three answering questions appropriately. Speech is fluent. Tongue is midline. Face is symmetric. Patient is appropriate. He has no jugular venous distention (JVD), thyromegaly. Lungs are clear to auscultation. No wheezing or rales. Heart, S1, S2 sinus rhythm. Abdomen is soft, nontender, nondistended. Positive bowel sounds. Extremities: No cyanosis, clubbing. Patient has 1+ edema in the right lower extremity. Left lower extremity is casted. Motor function is diminished on the right, especially decreasing transport analyst. Right and left is 5/5. LABORATORY DATA: Microbiology, imaging studies have been reviewed. ASSESSMENT/PLAN: 78-year-old male with history of coronary artery disease (CAD), coronary artery bypass graft (CABG), diabetes, heart failure with preserved ejection fraction, left arm squamous cell carcinoma basal cell with mets in lymph nodes and melanoma presents with right arm weakness and right foot swelling. IMPRESSION: 1. Right arm weakness: Patient has negative findings on CT of the head. Will obtain a CTA. The patient does have spinal stenosis of C6-[address] of the neck without contrast. If no contraindication, will obtain MRI of the brain. Pending official report of MRI of the brain may need to get neurosurgical evaluation as an outpatient. For now OT and PT. 2. History of CAD, CABG,on lopid, aspirin. 3. Type 2 diabetes on sliding scale and Levemir insulin. 4. Hypertension: On spironolactone. 5. History of heart failure on spironolactone. Chest x-ray is clear. No deep venous thrombosis on lower extremity. MTDD
[2019-07-22] MEDS ORDERED: LORazepam 2 MG/ML VIAL (J2060) IV STA (13:45)
[2019-07-22 14:00] VITALS: BP 124/68
--- NOTE | 2019-07-22 17:03 | REP ---
MRI brain without contrast: History: Right upper extremity and lower extremity weakness. Comparison CT study of the brain is from the previous day. Technique: Axial and sagittal imaging planes are utilized for T1 and T2-weighted scans. Sequences include spin-echo, fast spin echo, FLAIR, and diffusion weighted sequences. MRI findings: No bony calvarial lesion is seen. Craniocervical junction and upper cervical cord are normal in appearance. There is no MR evidence of significant paranasal sinus disease. No intraorbital abnormality is seen. On diffusion weighted scans, there is no evidence of restricted diffusion to suggest acute ischemia. There is no evidence of intracranial hemorrhage. No mass is seen. There is generalized volume loss. Small vessel changes are noted mild in degree. Impression: No acute intracranial lesion. Generalized volume loss. No evidence of acute ischemia or hemorrhage. No mass or midline shift seen. Electronically Signed by Kolton Leahy MD 07/23/2019 07:46 A
--- NOTE | 2019-07-22 17:10 | REP ---
MRI cervical spine without contrast: History: Right upper extremity weakness. Rule out spinal stenosis. Comparison cervical spine CT study July 21, 2019. Technique: Sagittal and axial T1 and T2-weighted scans are acquired in the usual fashion with and without fat saturation. Sequences include spin echo, turbo spin-echo, and STIR imaging sequences. MRI findings: There is straightening of the normal cervical lordosis. Cervical vertebral body heights are preserved. No bony destructive lesion is seen. No fracture or collapse is noted. There are moderate degenerative changes. Craniocervical junction is unremarkable. Axial and sagittal images at C2-3 demonstrate minimal disc bulging. No cord compression is seen. No foraminal narrowing is seen. At C3-4, however, there is a broad-based central disc protrusion which indents the ventral margin of the cord. There is moderate ligamentum flavum hypertrophy bilaterally and there is severe central canal stenosis at the C3-4 level as a result of these factors. Midline AP dimension of the thecal sac at this level is only 5 mm. CSF signal intensity is effaced on T2-weighted scans from the thecal sac at this level and the cord is flattened. There is bilateral uncovertebral spurring producing neural foraminal narrowing. T2-weighted scans demonstrate increased signal intensity diffusely within the cord consistent with myelomalacia. At C4-5, there is central disc bulging which also effaces the ventral margin of the of the cord. Mild central canal stenosis is noted. There is some ligamentum flavum hypertrophy participating in this. Midline AP dimension of the thecal sac is 6 mm at this level. No cord edema is appreciated on T2-weighted scans. No neural foraminal narrowing is seen. At C5-6, there is left posterior disc bulging. Mild left-sided uncovertebral spurring is present. No cord compression. At C6-7, there is degenerative disc narrowing. Diffuse disc bulging and posterior osteophytic ridging is seen. There is right-sided uncovertebral spurring producing foraminal encroachment. Mild left-sided uncovertebral spurring is seen. No cord compression or significant central canal stenosis seen. The C7-T1 level is unremarkable. Impression: Degenerative spondylosis changes. At C3-4, there is severe central canal stenosis and there is cord compression due to ligamentum flavum hypertrophy, broad-based central disc protrusion. There is cord edema within the substance of the cord about the C3-4 disc consistent with myelomalacia. Central canal stenosis is noted at C4-5 as well although less advanced. Electronically Signed by Kolton Leahy MD 07/23/2019 07:46 A
--- NOTE | 2019-07-22 19:01 | REP ---
HISTORY: Pain after trauma. The bones are demineralized. There is overlying casting material obscuring the bony detail. There is a distal fibular fracture poorly imaged. When compared to the ankle series of 06/24/2019, there is no significant change other than possible healing which is obscured by the cast. Electronically Signed by Desean Guidry DO 07/22/2019 07:35 P
--- NOTE | 2019-07-22 20:10 | ECGEPIP ---
[facility] - ED Test Date: 2019-07-21 Pat Name: EYAD REED Department: Room: [place] [address] Gender: Male Irrigation Specialist: erica : 1940 Requested By: DAVID ARGUELLO Order Number: [id number] Reading MD: Rosalba Farrar Measurements Intervals [place] Rate: 62 P: 69 NH: 172 QRS: 38 QRSD: 84 T: 50 QT: 387 QTc: 394 Interpretive Statements SINUS RHYTHM NSTTW abnormalities baseline artifact may affect interpretation DECREASED RATE 05/13/18 Electronically Signed on 07-22-2019 20:10:37 EDT by Rosalba Farrar
--- NOTE | 2019-07-22 21:57 | ECHO ---
DATE OF PROCEDURE: 07/22/2019 REFERRING PHYSICIAN: Dr. Carmen Roe INDICATION: Transient ischemic attack (TIA). Height 183 cm, weight 80 kg. DIMENSIONS: IVS: 1.2 LV: 3.8 LVPW: 1.2 LA: 3.3 Aorta: 3.5 IVC: 1.9 Mitral E wave velocity: 75 A wave: 88 E prime septal: 6.3 E prime lateral: 7.2 FINDINGS: The study is of good technical quality. The patient is in sinus rhythm. Normal left ventricular (LV) size with mild left ventricular hypertrophy (LVH) and preserved LV systolic function. Estimated left ventricular ejection fraction (LVEF) 70-75%. Right ventricle is also normal size and systolic function. Both atria appear normal. Aortic valve is minimally sclerotic but has three cusps and preserved mobility. Mitral, tricuspid and pulmonic valves appear normal. No pericardial effusion is noted. Inferior vena cava is normal size and appropriately collapses with inspiration indicative of normal central venous pressure. Aortic root is normal. Aortic arch and abdominal aorta were not well seen. Doppler interrogation reveals no aortic stenosis or insufficiency. There is trace mitral and trace tricuspid insufficiency. Calculated pulmonary artery pressure is within normal limits. Pulmonic valves is functionally competent as well. Mitral inflow pattern and tissue Doppler imaging of mitral annulus revealed grade 1 diastolic dysfunction. CONCLUSIONS: 1. Study is of acceptable technical quality. The patient is in sinus rhythm. 2. Normal LV size with mild LVH, hyperdynamic LV systolic function and grade 1 diastolic dysfunction. 3. No significant valvular disease. 4. Likely normal central venous pressure and normal pulmonary artery pressure. COMMENT: Subacute bacterial endocarditis (SBE) prophylaxis is not recommended. The study is consistent with mild hypertensive heart disease. No obvious findings to explain TIA.
[2019-07-22 22:00] VITALS: BP 141/70
[2019-07-23 06:00] VITALS: BP 121/65
[2019-07-23] MEDS: HumaLOG INSULIN (NovoLOG) PER UNIT SC SCH ×4 (09:26→20:55)
[2019-07-23] MEDS: SPIRONOLACTONE 25 MG TAB PO SCH (09:26)
[2019-07-23] MEDS: gemfibroziL 600 MG TAB PO SCH ×2 (09:27→20:55)
[2019-07-23] MEDS: DOCUSATE SODIUM 100 MG CAP PO SCH ×2 (09:27→20:54)
[2019-07-23] MEDS: OMEGA-3 1000MG CAPSULE PO SCH ×2 (09:27→20:54)
[2019-07-23] MEDS: METOPROLOL TART 12.5 MG PER 1/2 TAB PO SCH (09:27)
[2019-07-23] MEDS: amLODIPine 10 MG TAB PO SCH (09:27)
[2019-07-23] MEDS: ASPIRIN 81 MG ENTERIC TAB PO SCH (09:27)
[2019-07-23] MEDS: ENOXAPARIN 40 MG/0.4 ML SYRINGE (J1650) SC SCH (09:28)
[2019-07-23 13:05] LABS: HEMATOCRIT 38.4 % (42.0-52.0); HEMOGLOBIN 13.3 g/dl (13.5-17.5); MEAN CORPUSCULAR HEMOGLOBIN 31.2 pg (27.0-33.0); MEAN CORPUSCULAR HGB CONC 34.6 g/dl (32.0-36.5); MEAN CORPUSCULAR VOLUME 90.1 fl (80.0-96.0); PLATELET COUNT, AUTOMATED 261 10^3/uL (150-450); RED BLOOD COUNT 4.26 10^6/uL (4.30-6.10); WHITE BLOOD COUNT 6.2 10^3/uL (4.0-10.0)
[2019-07-23 13:26] LABS: BLOOD UREA NITROGEN 22 MG/DL (7-18); CALCIUM LEVEL 9.3 MG/DL (8.8-10.2); CARBON DIOXIDE LEVEL 24 MEQ/L (21-32); CHLORIDE LEVEL 105 MEQ/L (98-107); CREATININE FOR GFR 0.99 MG/DL (0.70-1.30); GLOMERULAR FILTRATION RATE > 60.0 (>35); GLUCOSE, FASTING 232 MG/DL (70-100); POTASSIUM SERUM 3.9 MEQ/L (3.5-5.1); SODIUM LEVEL 136 MEQ/L (136-145)
--- NOTE | 2019-07-23 13:46 | IPN ---
DATE: 07/23/2019 The patient continues to complain of right hand weakness. Cervical spine MRI shows spinal stenosis, to be evaluated by orthopedic surgery. The patient has not passed a home safety evaluation and is non weightbearing in the left lower extremity due to recent tib/fib fracture. Patient has been evaluated for deep vein thrombosis (DVT) in the right lower extremity, which has some edema, which was negative for DVT. Afebrile, no chills overnight. No other neurological complaints. Sensation is intact in bilateral upper and lower extremities. PHYSICAL EXAMINATION: VITAL SIGNS: Temperature 97.8, pulse 64, respiratory rate 15, blood pressure 121/65, 96% on room air. GENERAL: The patient is awake, alert, oriented to person, place and time. Answering questions appropriately. Fluent speech. No respiratory distress. Face is symmetric. Tongue is midline. No jugular venous distention (JVD) or thyromegaly. Dry mucous membranes. LUNGS: Clear to auscultation. No wheezing, rales or rhonchi. HEART: S1, S2. Sinus rhythm. ABDOMEN: Soft, nontender, nondistended. Positive bowel sounds. EXTREMITIES: Positive edema on the right. Left lower extremity is in a cast. Upper extremity has 4/5 spanish literature professor on the right hand, left hand is 5/5. LABORATORY DATA: Pending. Cervical spine MRI showed C3-C4 severe central canal stenosis, cord compression due to ligamentum flavum and hypertrophy, broad based central disc protrusion. Cord edema with interception of the cord at about C3-C4 consistent with myelomalacia. Central canal stenosis noted at C4-C5 as well, although less advanced. MRI of the brain shows no acute intracranial lesion, generalized volume loss, no evidence of acute ischemia or hemorrhage, no mass or midline shift is seen. ASSESSMENT AND PLAN: This is an 78-year-old male with a history of multiple neck surgeries, coronary artery disease, coronary artery bypass graft (CABG), dyslipidemia, diastolic heart failure with preserved ejection fraction, squamous cell carcinoma in the left arm, basal cell carcinoma with metastases to the lymph nodes and history of melanoma, dyslipidemia, diabetes, previous smoker, quit 1968, lives with at home, who presents to the emergency room with right arm and hand weakness, right foot swelling. The patient was evaluated with venous Doppler of the right lower extremity, negative for deep vein thrombosis (DVT). Chest x-ray shows no pulmonary edema. The patient has decreased spanish literature professor in the right hand, evaluated with cervical spine CT, which showed encephalomalacia and spinal stenosis with cord compression. Orthopedic surgery, Dr. Alpesh De Guzman, has been consulted for help in management. IMPRESSION: 1. Cervical spinal stenosis with cord compression and cord edema. Orthopedic surgery, Dr. Alpesh De Guzman, has been consulted to determine if the patient should be transferred to a higher level of care with neurosurgery and to determine if any medical intervention is required for the cord edema. He will see the patient and discuss if laminectomy with fusion surgery is an option. The patient has had multiple neck surgeries in the past and may not be eligible for this, but we will defer to orthopedic surgery. 2. Right lower extremity edema. The patient had been evaluated with venous Dopplers of the lower extremities, which was negative. The patient has no centralized volume overload with chest x-ray showing no pleural effusion or pulmonary edema. The patient may be having a side effect from Norvasc, which can cause lower extremity edema. We will temporarily discontinue for now. Continue with spironolactone. 3. Left tib-fib fracture with a cast. Per orthopedic surgery, Dr. Markus Garcia, the patient is to remain non weightbearing on the left lower extremity. 4. History of coronary artery disease and coronary artery bypass graft (CABG). On chronic aspirin and Lopid. Metoprolol 12.5 mg daily and spironolactone. 5. Dyslipidemia. On chronic Lopid 600 mg twice a day. 6. Type 2 diabetes. On Levemir insulin 22 units at night, consistent carbohydrate diet. A1/c is 8.4. Adjust for better glycemic control to 25 units at night. Continue on sliding scale before food and nightly. DISPOSITION: Awaiting orthopedic surgery recommendations and the patient's decision regarding laminectomy during this admission or outpatient. The patient has not passed a home safety evaluation and may need placement. [facility]
[2019-07-23 14:00] VITALS: BP 133/67
--- NOTE | 2019-07-23 18:28 | CR ---
DATE OF CONSULTATION: 07/23/2019 Asked to see this patient at the request of my partner, Dr. Markus Garcia, as well as Dr. Squires. Asked to evaluate cervical myelopathy. HISTORY OF PRESENT ILLNESS: The patient is an 78-year-old gentleman who lives independently who has multiple medical comorbidities, who had a left ankle fracture about 1 month ago that he sustained when he was shoveling his walk. He noticed soon after that that he had increasing right leg weakness and foot swelling, and over the course of the last 2 weeks he has noticed the weakness come on his right hand and trouble using the right upper extremity. He has not noticed improvement in his symptoms. 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 He has had surgery on the front of his neck for the melanoma and the basal cell, he says, but not radiation. He has diabetes. He has lost a toe to diabetes on the right foot. He had neck surgery with Dr. Colbert in [place] more than a decade ago, and that surgery was for right arm symptoms. SOCIAL HISTORY: He is a reformed smoker. Quit a long time ago. He does not drink, and he lives with is spouse. FAMILY HISTORY: Not contributory. HOME MEDICATIONS: Amlodipine, arginine, aspirin, gemfibrozil, glipizide, insulin, metformin, metoprolol, fish oil, spironolactone. Occasionally takes ibuprofen. ALLERGIES: PENICILLIN with a rash, STATINS, CEPHALEXIN with a rash, CLINDAMYCIN, hives, CYCLOBENZAPRINE, EZETIMIBE, and ATORVASTATIN. IMAGING: I reviewed imaging studies, including his cervical spine MRI. The cervical spine MRI reflects severe cervical spinal stenosis at the 3-4 level and degenerative changes throughout the neck. He has had a C5-6 right laminotomy. Cervical spine plain films reflect multilevel degenerative changes without instability at 3-4. CLINICAL EXAMINATION: He is alert, oriented, and cooperative. He is quite articulate. He is able to sit. He is able to eat with his left upper extremity. The right upper extremity he has quite significant coordination deficits and weakness as well as decreased sensation diffusely. Velasquez's absent. Clonus absent. Lower extremities reflect likely some elements of peripheral vascular disease. No clonus on the right. The left he had the fracture. IMPRESSION: Clinical spinal stenosis, producing weakness and sensory deficit due to myelopathy, high cervical/3-4. RECOMMENDATIONS: I talked to the patient about surgery. I would recommend a cervical decompression at the 3-4-5 level, likely instrumented via a posterior approach. I had a long discussion with the patient. Today's visit actually was primarily a counseling visit talking about that option. The patient is quite adamant that he would not like to have surgery. We talked about the risk of progression and , and he understands that that is a risk, and he also understands that there is a risk of catastrophic medical problems with this type of surgery in someone who is 78. For now, he would like to pursue nonoperative care with the understanding that this may become worse, may not become better. We talked frankly about the surgical option. While he might im prove, the goal of the surgery is to keep this from getting worse. I am happy to see this gentleman at any time. I would be available if he decides to reconsider surgery. For further details, please refer to the medical record, which was reviewed today. If the patient elects for surgery, additional considerations would include cardiac evaluation, echocardiogram.
[2019-07-23 19:28] LABS: IONIZED CALCIUM 4.8 MG/DL (4.5-5.3)
[2019-07-23 19:54] LABS: CK-MB VALUE MASS 1.5 NG/ML (<3.6); CPK CREATINE PHOSPHOKINASE 110 U/L (39-308); MB/CK RELATIVE INDEX 1.36 (< OR =4); TROPONIN I < 0.02 NG/ML (< 0.10)
[2019-07-23] MEDS: LEVEMIR (INSULIN DETEMIR) 1 UNITS/0.01ML SC SCH (20:56)
[2019-07-23 22:00] VITALS: BP 131/67
[2019-07-24 06:00] VITALS: BP 132/66
[2019-07-24 06:32] LABS: HEMATOCRIT 37.4 % (42.0-52.0); HEMOGLOBIN 12.8 g/dl (13.5-17.5); MEAN CORPUSCULAR HEMOGLOBIN 30.7 pg (27.0-33.0); MEAN CORPUSCULAR HGB CONC 34.2 g/dl (32.0-36.5); MEAN CORPUSCULAR VOLUME 89.7 fl (80.0-96.0); PLATELET COUNT, AUTOMATED 254 10^3/uL (150-450); RED BLOOD COUNT 4.17 10^6/uL (4.30-6.10); WHITE BLOOD COUNT 5.9 10^3/uL (4.0-10.0)
--- NOTE | 2019-07-24 07:29 | CR ---
DATE OF CONSULTATION: 07/23/2019 REASON FOR CONSULTATION: Frequent falls with weakness in his right upper extremity. HISTORY OF PRESENT ILLNESS: He has been admitted two days ago for some concern about right lower extremity swelling and frequent falls. He was encouraged to come to the hospital from his daughter. He had been falling for the past 4-6 weeks. Actually, he fell about a month ago and actually fractured his left ankle. He was cared for by Dr. Jordan and has presently a left short leg cast in place. That seems to be doing well. But it is noted he feels generally weak, difficult to elevate his arm up over head and his right leg feels weak and does not really necessarily support his weight. So he was admitted through the emergency room and he was evaluated with an ultrasound of his right leg. It did not show any swelling and he feels that the swelling of the ankle has diminished significantly. He was then subsequently worked up for a possible stroke. He had a brain MRI which was normal and a head CT which was normal. Ultrasound of his carotids showed less than 50% stenosis. However, cervical spine x-ray showed some mild diffuse spondylosis, but a MR scan of his neck showed what appears to be an area of a cord compression with some cord malacia at the C2-3 level. Because of this and his findings on his examination, I was asked to consult on him this morning by Dr. Squires. PAST MEDICAL HISTORY: Otherwise, his relevant past medical history is significant for some coronary artery disease, high blood pressure, insulin dependent diabetes and congestive heart failure with normal ejection fraction. He has history of basal cell carcinoma as well as melanoma, this was involving his neck. PAST SURGICAL HISTORY: He has had coronary artery bypass graft times four. Also relevant history is he has had cervical spine surgery it seems to be as he remembers at C4-5 or the C5- [address] Filemon zimmerman in [place] many years ago, he doesn't remember specifically what the operation was for. ALLERGIES: - PENICILLIN - ATORVASTATIN SOCIAL HISTORY: He does not presently smoke or drink alcohol excessively. He lives in [place]. 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 Originally from [place]. MEDICATIONS: Include amlodipine, baby aspirin, gemfibrozil, glipizide, ibuprofen, insulin, metformin, metoprolol, spironolactone, fish oil. He presently is on Lovenox for deep vein thrombosis (DVT) prophylaxis. PHYSICAL EXAMINATION: He is a pleasant, slender male examined in his hospital bed. He does obviously complain that he cannot shake my hand because his right arm feels weak, but he can elevate his arm up over head, but clearly he has about I would call it a full grade weakness of actually 4/5 in shoulder abduction, as well as, elbow flexion and in extension. 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 Sensation was diffusely, subjectively diminished. Good radial pulse noted. Right lower extremity - he is able to do a straight leg raise, but he clearly has about a 4/5 weakness in hip flexors and the knee extensors and knee flexors, as well as, some weakness in dorsiflexion and plantar flexion of his ankle, but I could still get a reflex at the quadriceps and the ankle. Sensory testing was unremarkable. He has a good pulse in his foot. There is a left short leg cast in place on the left ankle, but he can do a straight leg raise on the left side with good strength, and his left upper extremity has good strength. LABORATORY STUDIES: Show normal white count of 6, hematocrit 38.8, platelets 271. PT 13.9. INR 1.1. Sodium 136. Potassium 4.4. Chloride 104. Bicarbonate 24. BUN 22. Creatinine 1.03. Glucose 148. IMAGING STUDIES: Reviewed. Tib-fib x-ray showed a healing distal fibula fracture. Cervical spine MRI showed the cord malacia at C2-3. There is some discogenic change at C5-6 lower down. Cervical spine x-ray showed some mild cervical spondylosis. Brain MRI was unremarkable. Ultrasounds of his carotids and his right lower extremity were unremarkable. Chest x-ray showed no acute disease. The cervical spine CT scan did not show any acute fractures. A head CT showed no intra-articular pathology. IMPRESSION: In general, he is an elderly male with right upper and lower extremity weakness with frequent falls ongoing for 4-6 weeks with evidence on MR scan of some cord compression at C2-3 level. I would recommend we get spine surgical consultation for him for advice on care. In terms of his ankle, will continue to treat him with his cast and followup with Dr. Jordan as necessary. I will discuss this with my partner, spine surgeon Dr. Alpesh De Guzman, who also will evaluate him further and discuss further with Dr. Squires. [facility]
[2019-07-24] MEDS: SPIRONOLACTONE 25 MG TAB PO SCH (08:15)
[2019-07-24] MEDS: ASPIRIN 81 MG ENTERIC TAB PO SCH (08:15)
[2019-07-24] MEDS: METOPROLOL TART 12.5 MG PER 1/2 TAB PO SCH (08:15)
[2019-07-24] MEDS: OMEGA-3 1000MG CAPSULE PO SCH ×2 (08:15→21:42)
[2019-07-24] MEDS: gemfibroziL 600 MG TAB PO SCH ×2 (08:15→21:42)
[2019-07-24] MEDS: HumaLOG INSULIN (NovoLOG) PER UNIT SC SCH ×4 (08:16→21:43)
[2019-07-24] MEDS: ENOXAPARIN 40 MG/0.4 ML SYRINGE (J1650) SC SCH (08:16)
[2019-07-24] MEDS: DOCUSATE SODIUM 100 MG CAP PO SCH ×2 (08:17→21:42)
[2019-07-24 14:00] VITALS: BP 130/65
--- NOTE | 2019-07-24 19:35 | DSES ---
DATE OF ADMISSION: 07/21/2019 DATE OF DISCHARGE: CONSULTANTS: Dr. Markus Garcia, orthopedic surgery. Dr. Alpesh De Guzman, orthopedic surgery. PRIMARY DISCHARGE DIAGNOSES: 1. Central spinal stenosis producing weakness. 2. Sensory deficit due to myelopathy in the high cervical C3-C4, refused surgical intervention. 3. Frequent falls. 4. Recent left lower extremity tib-fib fracture with a cast. 5. Right lower extremity edema, deep vein thrombosis (DVT) has been ruled out. 6. History of coronary artery disease and coronary artery bypass graft (CABG). 7. Dyslipidemia. 7. Type 2 diabetes. The patient is discharged to acute rehabilitation unit. DISCHARGE MEDICATIONS: - Norvasc 10 mg daily - glargine 2000 mg daily - aspirin 81 mg daily - gemfibrozil 600 mg twice a day - glipizide 10 mg daily, 5 mg at night - ibuprofen 800 mg three times a day as needed - Lantus insulin 22 units at night - metformin 1 gram twice a day - metoprolol 12.5 mg daily - omega 3 1000 mg twice a day - spironolactone 25 mg daily HOSPITAL COURSE: This is an 78-year-old male with a history of multiple neck surgeries in the past, severe central canal stenosis with cord compression at C3-C4 due to ligamentum flavum hypertrophy with disc protrusion, central canal stenosis noted at C4-C5 as well, history of coronary artery disease, coronary artery bypass graft (CABG), diastolic heart failure, dyslipidemia, 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 He lives with his at home and presented to the emergency room with right arm and hand weakness, as well as right foot swelling. The patient had a previous left lower extremity tib-fib fracture, still wearing a cast, uses a walker normally, was evaluated for lower extremity edema with an ultrasound, which was negative for deep vein thrombosis (DVT). Chest x-ray showed no pulmonary edema and he was not in overt congestive heart failure (CHF). The patient was noticed to have myelopathy in the right upper extremity. Therefore, MRI of the cervical spine was performed. The patient was initially thought to have a plate in the neck. Repeat x-ray showed metallic object and MRI of the brain, as well as the cervical spine were then performed. He was found to have a significant stenosis at C3-C4 due to ligamentum flavum hypertrophy, which was evaluated by Dr. Garcia, orthopedic surgeon, who then referred him to Dr. De Guzman, who does cervical spinal surgery. After a discussion with orthopedic surgery, the patient had decided not to pursue any treatment despite having cord compression, as well as some edema there. The patient has opted to just go home and not pursue any surgery or any other further medical treatment. After conversing with his , as well as his daughter at home and the patient's continued debility, it was advised that he would be best served to go the acute rehabilitation unit prior to going home. For his left lower extremity tib-fib fracture, he remains with a cast, non weightbearing. His blood pressure has remained normal. He was kept on metoprolol and spironolactone, as well as chronic Lopid for his dyslipidemia. The patient has been stable with his diabetes and was kept on his long-acting insulin regimen. PHYSICAL EXAMINATION: On discharge: Temperature 97.8, pulse 65, respiratory rate 18, blood pressure 132/67, 96% on room air. GENERAL: The patient is awake, alert, oriented. Answering questions appropriately. Face is symmetric. Tongue is midline. Dry mucous membranes. No jugular venous distention (JVD) or thyromegaly. LUNGS: Clear to auscultation. No wheezing, rales or rhonchi. HEART: S1, S2. Sinus rhythm. No murmurs, rubs or gallops. ABDOMEN: Soft, nontender, nondistended. Positive bowel sounds. EXTREMITIES: Left lower extremity is in a cast. Right lower extremity has 1+ edema. 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 He has negative Velasquez's sign. No clonus. DISCHARGE LABORATORY DATA: White count 5.9, hemoglobin 12, hematocrit 37, platelet count 254. Sodium 136, potassium 4.0, chloride 105, bicarbonate 24, BUN 22, creatinine 0.99, glucose 232, ionized calcium 4.8, magnesium 2, total CK 110, MB fraction 1.5, relative index 1.36, troponin less than 0.02. Triglycerides 250, total cholesterol 221, LDL 143, non HDL 193, HDL 28, TSH 2. IMAGING STUDIES: Tib-fib x-ray on 07/22/2019 showed bones are demineralized, overlying calcium material obstructing bony details, distal fibular fracture, poorly imaged when compared to ankle series. No significant change other than possible healing, which is obscured by the cast. MRI of the cervical spine shows degenerative spondylosis C3-C4 with severe central canal stenosis, cord compression due to ligamentum flavum, hypertrophy with broad based central disc protrusion, cord edema within the substance of the cord at about C3-C4, consistent with myelomalacia, central canal stenosis noted at C4-C5 as well though less advanced. MRI of the brain showed no acute intracranial lesion, generalized volume loss, no evidence of acute ischemia or hemorrhage, no mass or midline shift is seen. Cervical spine CT on 07/21/2019 shows no fracture, retropharyngeal space soft tissues are unremarkable, lung apices are clear. Time spent on discharge: 30 minutes.
[2019-07-24] MEDS: LEVEMIR (INSULIN DETEMIR) 1 UNITS/0.01ML SC SCH (21:42)
[2019-07-24 22:00] VITALS: BP 144/73
[2019-07-25 06:00] VITALS: BP 144/76
[2019-07-25 08:06] VITALS: BP 137/70
[2019-07-25] MEDS: OMEGA-3 1000MG CAPSULE PO SCH (08:06)
[2019-07-25] MEDS: gemfibroziL 600 MG TAB PO SCH (08:06)
[2019-07-25] MEDS: METOPROLOL TART 12.5 MG PER 1/2 TAB PO SCH (08:06)
[2019-07-25] MEDS: ASPIRIN 81 MG ENTERIC TAB PO SCH (08:06)
[2019-07-25] MEDS: SPIRONOLACTONE 25 MG TAB PO SCH (08:07)
[2019-07-25] MEDS: HumaLOG INSULIN (NovoLOG) PER UNIT SC SCH ×2 (08:07→12:14)
[2019-07-25] MEDS: ENOXAPARIN 40 MG/0.4 ML SYRINGE (J1650) SC SCH (08:07)
[2019-07-25] MEDS: DOCUSATE SODIUM 100 MG CAP PO SCH (08:10)
--- NOTE | 2019-07-25 12:04 | DS.PDOC ---
Discharge Summary General Date of Admission Jul 21, 2019 at 21:53 Date of Discharge July 25, 2019 Discharge Summary DISCHARGE SUMMARY ADDENDUM: Pt was not accepted to Acute Rehabilitation Unit yesterday, and was kept in the medical surgical floor. No issues overnight. c/o chronic right knee pain without erythema, tenderness, or recent trauma. DISCHARGE PHYSICAL EXAMINATION: VITALS : PLS SEE BELOW. GENERAL: The patient is awake, alert, oriented. Answering questions appropriately. Face is symmetric. no conversational dyspnea, speaks in full sentences. no facial drooping. Tongue is midline. Dry mucous membranes. No jugular venous distention (JVD) or thyromegaly. no cervical LAD LUNGS: AEBE. Clear to auscultation. No wheezing, rales or rhonchi. HEART: S1, S2. Sinus rhythm. nondisplaced PMI. No murmurs, rubs or gallops. ABDOMEN: Soft, nontender, nondistended. no HSM. no rebound, guarding, or abd bruits. Positive bowel sounds. EXTREMITIES: Left lower extremity is in a cast. Right lower extremity has 1+ edema. 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 He has negative Velasquez's sign. No clonus. Plan: dc to ARU today. Vital Signs/I&Os Vital Signs Date Time Temp Pulse Resp B/P (MAP) Pulse Ox O2 Delivery O2 Flow Rate FiO2 07/25/19 08:06 87 137/70 07/25/19 06:00 97.2 18 93 Room Air I&O- Last 24 Hours up to 6 AM 07/25/19 06:03 Intake Total 1440 ml Output Total 1125 ml Balance 315 ml Laboratory Data Labs 24H Laboratory Tests 2 07/24/19 17:11: Bedside Glucose (Misc Panel) 316H 07/24/19 20:40: Bedside Glucose (Misc Panel) 270H 07/25/19 06:13: Bedside Glucose (Misc Panel) 190H 07/25/19 11:23: Bedside Glucose (Misc Panel) 292H FSBS Laboratory Tests Test 07/24/19 17:11 07/24/19 20:40 07/25/19 06:13 07/25/19 11:23 Range/Units Bedside Glucose (Misc Panel) 316 270 190 292 83-110 MG/DL Discharge Medications Scheduled Amlodipine Besylate (Amlodipine Besylate) 10 Mg Tab, 10 MG PO DAILY, (Reported) Arginine HCl (l-Arginine) 1,000 Mg Tablet, 2,000 MG PO DAILY, (Reported) Aspirin (Aspirin EC) 81 Mg Tablet.dr, 81 MG PO DAILY, (Reported) Gemfibrozil (Gemfibrozil) 600 Mg Tab, 600 MG PO BID, (Reported) Glipizide (Glipizide) 5 Mg Tab, 10 MG PO DAILY, (Reported) Glipizide (Glipizide) 5 Mg Tab, 5 MG PO QHS, (Reported) Insulin Glargine,Hum.rec.anlog (Lantus Solostar) 100 Unit/Ml Inj, 22 UNITS SC QHS, (Reported) Metformin HCl (Metformin HCl) 1,000 Mg Tab, 1,000 MG PO BID, (Reported) Metoprolol Tartrate (Metoprolol Tartrate) 25 Mg Tab, 12.5 MG PO DAILY, (Reported) [place]-3/Dha/Epa/Fish Oil ([place]-3 Fish Oil 1,000 mg Sfgl) 1,000 Mg Capsule, 1 CAP PO BID, (Reported) Spironolactone (Spironolactone) 25 Mg Tab, 25 MG PO DAILY, (Reported) Scheduled PRN Ibuprofen (Ibu-200) 200 Mg Tab, 800 MG PO TID PRN for PAIN, (Reported) Allergies Coded Allergies: Penicillins (Verified Allergy, Mild, RASH, 06/24/19) Xbjdqvx-Ygf-Izn Reductase Inhibitor (Verified Allergy, Unknown, MYALGIA, 07/21/19) cephalexin (Verified Allergy, Unknown, RASH, 07/21/19) clindamycin (Verified Allergy, Unknown, HIVES, 07/21/19) cyclobenzaprine (Verified Allergy, Unknown, HIVES, 07/21/19) ezetimibe (Verified Allergy, Unknown, BONE PAIN, 07/21/19) atorvastatin (Verified Adverse Reaction, Intermediate, LEG PAIN, 06/24/19) VERNON OSPINA MD Jul 25, 2019 11:59
[2019-07-25 14:00] VITALS: BP 126/64
== END 2019-07-25 15:54 | DRG 552 ==
LOC: M ED 18:31 → M ED INP 21:53 → ENRESERV 22:34 → M MSPAV 23:26
PROVIDERS: ADMIT Internal Medicine; ATTEND General Practice
DX: M48.02 Spinal stenosis, cervical region (principal); G95.29 Other cord compression; I50.32 Chronic diastolic (congestive) heart failure; R29.6 Repeated falls; G89.29 Other chronic pain; M54.2 Cervicalgia; E11.65 Type 2 diabetes mellitus with hyperglycemia; I25.10 Atherosclerotic heart disease of native coronary artery without angina pectoris; Z95.1 Presence of aortocoronary bypass graft; E78.5 Hyperlipidemia, unspecified; I11.0 Hypertensive heart disease with heart failure; Z85.828 Personal history of other malignant neoplasm of skin; Z87.891 Personal history of nicotine dependence; Z79.82 Long term (current) use of aspirin; Z79.4 Long term (current) use of insulin; Z79.899 Other long term (current) drug therapy; Z88.0 Allergy status to penicillin; Z88.1 Allergy status to other antibiotic agents; Z88.8 Allergy status to other drugs, medicaments and biological substances; S82.832D Other fracture of upper and lower end of left fibula, subsequent encounter for closed fracture with routine healing; X58.XXXD Exposure to other specified factors, subsequent encounter

== ENCOUNTER 2019-07-25 10:52 | Inpatient (IN) | payer MEDICARE ==
[~2019-07-25] VITALS: Ht 182.9 cm; Wt 82.3 kg
[~2019-07-25 10:52] MED LIST changes: +ASPI-161 PO; +OMEGCAP4 PO; +[UNRECOGNIZED DRUG - CODE] PO
[2019-07-25] MEDS ORDERED: GLUCAGON FOR INJ 1 MG VIAL (J1610) SC PRN (12:30)
[2019-07-25] MEDS ORDERED: GLUCOSE 4 GM CHEW TABLET PO PRN (12:30)
[2019-07-25] MEDS ORDERED: BISACODYL 10 MG SUPP PR PRN (12:30)
[2019-07-25] MEDS ORDERED: DEXTROSE 50% 50 ML SYRINGE IV PRN (12:30)
--- NOTE | 2019-07-25 12:49 | HPEPDOC ---
Bankruptcy Processor Note DATE OF ADMISSION: 07-25-19 DATE OF SERVICE: 07-25-19 TIME OF ADMISSION: Please refer to physician's admission order. 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 CTH and brain MRI did not show intracranial abnormalities Cervical MRI however did show At C3-4, there is severe central canal stenosis and there is cord compression due to ligamentum flavum hypertrophy, broad-based central disc protrusion. There is cord edema within the substance of the cord about the C3-4 disc consistent with myelomalacia. Central canal stenosis is noted at C4-5 as well. Orthopedics evaluated him and discussed surgical decompression to help alleviate his right arm and leg weakness, however due to his advanced age he declined surgical intervention. He was evaluated by therapy, noted to have impairments in mobility and ADLs below his prior level of function and deemed medically appropriate for discharge to ARU. REVIEW OF SYSTEMS: The following is a completed review of systems and has been reviewed. Review of systems otherwise unremarkable. PAIN: Patient self reports no pain EYES: No recent vision changes EARS, NOSE, & THROAT: No throat pain, or dysphagia, or rhinorrhea CARDIOVASCULAR: Denies chest pain or palpitations PULMONARY: Denies shortness of breath GASTROINTESTINAL: Denies constipation/diarrhea GENITOURINARY: denies retention/incontinence/dysuria MUSCULOSKELETAL: right sided weakness and left ankle fracture NEUROLOGICAL:RUE and RLE paresis HEMATOLOGICAL: denies easy bruising SKIN: denies rash PSYCHIATRIC: Unremarkable All other review of systems found to be negative. PAST MEDICAL HISTORY: as per HPI PAST SURGICAL HISTORY: as per HPI ALLERGIES: Please see below. MEDICATIONS: Please see below. FAMILY HISTORY: Lung disease and alcoholism SOCIAL HISTORY: Former smoker, no etoh/illicit drugs DIET: low sodium, fluid restrict PHYSICAL EXAMINATION: VITAL SIGNS: Please see below. GENERAL: Pleasant and cooperative. No acute distress. HEENT: PERRL. Extraocular movements intact. Clear conjunctiva CARDIOVASCULAR: Regular rate and rhythm. No murmurs, rubs, or gallops LUNGS: Clear to auscultation bilaterally. No wheezes. No rhonchi ABDOMEN: Soft, nontender, nondistended. Positive bowel sounds. Normal active bowel sounds NEUROLOGICAL: Alert and oriented times three. Cranial nerves II through XII grossly intact. Sensation grossly intact, however diminished to light touch and pinprick on right side (-) Hoffmans bilat (-) babinski on right, no clonus Left LE casted, able to wiggle toes EXTREMITIES: 5\5 strength left upper extremities. 3+ RUE, 4-\5 strength right lower extremity. 5/5 strength in left hip flexion and knee extension, able to wiggle toes (exam limited due to cast) +bilat foot edema SKIN: intact LABORATORY DATA: Please see below. IMAGING: Imaging documentation personally reviewed by record FUNCTIONAL STATUS: Premorbid: Independent with all activities of daily life as well as mobility On Admission: Maximum assistance for bathing, upper body dressing, bed chair and wheelchair transfers, toilet transfers, ambulation. GOALS: Mod-I household distances for ambulation, functional transfers, toileting, bathing, upper and lower body dressing, medical optimization ASSESSMENT:78-year-old M with past medical history of recent left ankle fracture who presents status post right sided paresis in setting of cervical myleopathy PLAN: 1. Rehab- PT/OT advance gait and ADL training maintaining NWB to LLE- strengthen/stretch/maintain ROM all 4 limbs 2. Ortho- s/p left ankle fracture with ORIF- ortho consulted 3. Neuro: cervical myelopathy with RUE>RLE weakness, patient declining surgical decompression, no bowel/bladder symptoms, will monitor for further decline 4. CArdiac: hx of diastolic CHF- daily weights, aldactone, fluid restrict -CAD s/p CABG c/u ASa and metoprolol- medicine consulted to assist in overall management -HLD- c/u Lopid 5. Resp: encourage incentive spirometry 6. Endo: pmh DM c/u insulin and glipizide, ISS ordered as well- adjust prn 7. : monitor PVRs 8. DVT ppx: lovenox and TEDs to RLE 9. GI ppx: prilosec 10. PAin: tyelneol 11. DIspo: TBD POST ADMISSION PHYSICIAN EVALUATION: Medical and functional status: Description of medical status, medical assessment: As above. Rehabilitation diagnosis and current and prior cold morbid medical conditions as above. Risk of complications and plans to mitigate them as above. Description of functional status current status is as above. Prior status as above. Status compared to preadmission: There are no clinically significant differences between the patient's current status and the information described on the preadmission screening document. Treatment plan anticipated: Treatment plan is as described above. Required disciplines including physical therapy, occupational therapy, others as noted above. Intensity of services: 3 hours a day, 6 days a week. Special considerations: There are no specific special or safety considerations that would likely preclude immediate implementation of an intensive rehabilitation program or subsequently influence the plan of care ATTESTATION: Considering all the information above, it is my best judgment that this patient requires intensive rehabilitation therapy as described above and an inpatient hospital environment due to the complexity of nursing, medical, and rehabilitation needs required by the patient. Furthermore, this patient can reasonably be expected to participate in an benefit from an inpatient rehabilitation stay with an interdisciplinary team approach to the delivery of rehabilitation care under the direction and supervision of rehabilitation physician. PROGNOSIS: Good. ESTIMATED LENGTH OF STAY:18-21 days. PROJECTED DISCHARGE DESTINATION: Home with family support and any durable medical equipment required to increase functional safety and mobility. TIME SPENT COUNSELING AND COORDINATING INITIAL CARE: Greater than 70 minutes. Vital Signs Vital Signs Date Time Temp Pulse Resp B/P (MAP) Pulse Ox O2 Delivery O2 Flow Rate FiO2 07/25/19 16:00 98.7 67 20 139/64 (89) 98 Room Air Home Medications Scheduled Amlodipine Besylate (Amlodipine Besylate) 10 Mg Tab, 10 MG PO DAILY, (Reported) Arginine HCl (l-Arginine) 1,000 Mg Tablet, 2,000 MG PO DAILY, (Reported) Aspirin (Aspirin EC) 81 Mg Tablet.dr, 81 MG PO DAILY, (Reported) Gemfibrozil (Gemfibrozil) 600 Mg Tab, 600 MG PO BID, (Reported) Glipizide (Glipizide) 5 Mg Tab, 10 MG PO DAILY, (Reported) Glipizide (Glipizide) 5 Mg Tab, 5 MG PO QHS, (Reported) Insulin Glargine,Hum.rec.anlog (Lantus Solostar) 100 Unit/Ml Inj, 22 UNITS SC QHS, (Reported) Metformin HCl (Metformin HCl) 1,000 Mg Tab, 1,000 MG PO BID, (Reported) Metoprolol Tartrate (Metoprolol Tartrate) 25 Mg Tab, 12.5 MG PO DAILY, (Reported) Beckley-3/Dha/Epa/Fish Oil (Beckley-3 Fish Oil 1,000 mg Sfgl) 1,000 Mg Capsule, 1 CAP PO BID, (Reported) Spironolactone (Spironolactone) 25 Mg Tab, 25 MG PO DAILY, (Reported) Scheduled PRN Ibuprofen (Ibu-200) 200 Mg Tab, 800 MG PO TID PRN for PAIN, (Reported) Allergies Coded Allergies: Penicillins (Verified Allergy, Mild, RASH, 06/24/19) Ksmmzxn-Krr-Mnt Reductase Inhibitor (Verified Allergy, Unknown, MYALGIA, 07/21/19) cephalexin (Verified Allergy, Unknown, RASH, 07/21/19) clindamycin (Verified Allergy, Unknown, HIVES, 07/21/19) cyclobenzaprine (Verified Allergy, Unknown, HIVES, 07/21/19) ezetimibe (Verified Allergy, Unknown, BONE PAIN, 07/21/19) atorvastatin (Verified Adverse Reaction, Intermediate, LEG PAIN, 06/24/19) A-FIB/CHADSVASC A-FIB History Current/History of A-Fib/PAF?: No TONY WU MD Jul 25, 2019 12:49
[2019-07-25 16:00] VITALS: BP 139/64
[2019-07-25] MEDS: HumaLOG INSULIN (NovoLOG) PER UNIT SC SCH ×2 (17:20→21:25)
[2019-07-25] MEDS: gemfibroziL 600 MG TAB PO SCH (17:21)
[2019-07-25] MEDS: REMEDY PHYTOPLEX Z-GUARD PASTE 113GM TUBE (FROM STOREROOM PRODUCT) TOP SCH ×2 (17:21→21:25)
[2019-07-25] MEDS: glipiZIDE (GLUCOTROL) 5 MG TAB PO SCH (17:21)
[2019-07-25] MEDS: ACETAMINOPHEN 500 MG TAB PO SCH ×2 (17:21→21:25)
[2019-07-25 20:08] VITALS: BP 140/77
[2019-07-25] MEDS: LEVEMIR (INSULIN DETEMIR) 1 UNITS/0.01ML SC SCH (21:24)
[2019-07-25] MEDS: SENNA 8.6 MG TAB (SENOKOT) PO SCH (21:25)
[2019-07-25] MEDS: OMEGA-3 1000MG CAPSULE PO SCH (21:25)
[2019-07-25] MEDS: DOCUSATE SODIUM 100 MG CAP PO SCH (21:25)
[2019-07-26 05:28] VITALS: BP 145/80
[2019-07-26 06:54] LABS: BASO % 0.6 % (0.0-1.0); EOS # 0.1 10^3/uL (0.0-0.5); EOS % 1.8 % (0.0-3.0); HEMATOCRIT 40.5 % (42.0-52.0); HEMOGLOBIN 13.8 g/dl (13.5-17.5); LYMPH # 1.8 10^3/uL (1.5-5.0); LYMPH % 24.6 % (24.0-44.0); MEAN CORPUSCULAR HEMOGLOBIN 30.5 pg (27.0-33.0); MEAN CORPUSCULAR HGB CONC 34.1 g/dl (32.0-36.5); MEAN CORPUSCULAR VOLUME 89.6 fl (80.0-96.0); MONO # 0.7 10^3/uL (0.0-0.8); MONO % 9.6 % (0.0-5.0); NEUTROPHILS # 4.5 10^3/uL (1.5-8.5); PLATELET COUNT, AUTOMATED 286 10^3/uL (150-450); RED BLOOD COUNT 4.52 10^6/uL (4.30-6.10); WHITE BLOOD COUNT 7.1 10^3/uL (4.0-10.0)
[2019-07-26 07:17] LABS: ALBUMIN 3.5 GM/DL (3.2-5.2); ALT/SGPT 30 U/L (12-78); BILIRUBIN,TOTAL 0.5 MG/DL (0.2-1.0); BLOOD UREA NITROGEN 16 MG/DL (7-18); CALCIUM LEVEL 9.7 MG/DL (8.8-10.2); CARBON DIOXIDE LEVEL 24 MEQ/L (21-32); CHLORIDE LEVEL 105 MEQ/L (98-107); CREATININE FOR GFR 0.98 MG/DL (0.70-1.30); GLOMERULAR FILTRATION RATE > 60.0 (>35); GLUCOSE, FASTING 189 MG/DL (70-100); SODIUM LEVEL 135 MEQ/L (136-145); TOTAL PROTEIN 8.2 GM/DL (6.4-8.2)
[2019-07-26] MEDS: ACETAMINOPHEN 500 MG TAB PO SCH ×3 (08:50→22:10)
[2019-07-26] MEDS: ENOXAPARIN 40 MG/0.4 ML SYRINGE (J1650) SC SCH (08:51)
[2019-07-26] MEDS: HumaLOG INSULIN (NovoLOG) PER UNIT SC SCH ×4 (08:51→20:21)
[2019-07-26] MEDS: gemfibroziL 600 MG TAB PO SCH ×2 (08:52→17:59)
[2019-07-26] MEDS: glipiZIDE (GLUCOTROL) 5 MG TAB PO SCH ×2 (08:52→17:59)
[2019-07-26] MEDS: OMEGA-3 1000MG CAPSULE PO SCH ×2 (08:52→20:20)
[2019-07-26] MEDS: OMEPRAZOLE 20 MG CAP PO SCH (08:52)
[2019-07-26] MEDS: SPIRONOLACTONE 25 MG TAB PO SCH (08:52)
[2019-07-26] MEDS: METOPROLOL TART 12.5 MG PER 1/2 TAB PO SCH (08:52)
[2019-07-26] MEDS: DOCUSATE SODIUM 100 MG CAP PO SCH ×2 (08:52→20:20)
[2019-07-26] MEDS: ASPIRIN 81 MG ENTERIC TAB PO SCH (08:52)
[2019-07-26] MEDS: REMEDY PHYTOPLEX Z-GUARD PASTE 113GM TUBE (FROM STOREROOM PRODUCT) TOP SCH ×3 (08:53→20:21)
[2019-07-26 14:00] VITALS: BP 149/72
--- NOTE | 2019-07-26 15:07 | CR ---
DATE OF CONSULTATION: REASON FOR CONSULT: Management of chronic medical problems. HISTORY OF PRESENTING ILLNESS: This is an 78-year-old male who lives at home with his , presented to the emergency room on 07/21/2019, discharged to acute rehab unit (ARU) on 07/25/2019 with complaints of right lower extremity swelling and right hand weakness. Patient was evaluated for CVA with negative CT of the head. Due to a plate being seen on his neck, an MRI initially could not be done. However, x-ray of the cervical spine showed no plate, and an MRI was performed. Brain had no CVA. MRI of the cervical spine shows significant C3-C4 spinal stenosis with cord compression and cord edema. He was subsequently evaluated by orthopedic surgeon, Dr. Nicki Garcia, who recommended spine surgeon, Dr. Alpesh De Guzman, to consult with him regarding laminectomy and possible fusion surgery. The patient was seen by Dr. De Guzman on 07/23/2019 and patient subsequently refused surgical intervention. Patient had no pain, did not require any pain medications. He did have persistent myelopathy causing weakness of the right hand. Patient currently could not be discharged home due to persistent debility and was subsequently discharged to ARU. Evaluation of the right lower extremity included venous Dopplers, which were negative for deep vein thrombosis (DVT). Patient was adamant about going home, but recognized that he is unable to care for himself, even though he has a as well as a daughter that is able to help out. No steroids were given for the patient. He had persistent right knee swelling, which was evaluated by orthopedic surgery with no immediate recommendations. Patient was kept on his home dose of insulin and glipizide. Metformin was held due to recent contrast studies. His blood pressure was elevated due to pain and his Norvasc was increased to 10 mg daily. 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 Insulin-dependent diabetes. Coronary artery disease, coronary artery bypass graft (CABG). Dyslipidemia. Chronic diastolic heart failure. 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 Basal cell carcinoma with metastasis to lymph node. History of melanoma. Recent left tibia-fibula (tib-fib) fracture, in a cast. PAST SURGICAL HISTORY: Resection of basal cell cancer in the left arm and history of CABG. SOCIAL HISTORY: Lives at home. Quit smoking in 1968. Denies any alcohol use. Previously lived independently with his . ALLERGIES: No known drug allergies. FAMILY HISTORY: Alcoholism and lung disease. CURRENT HOSPITAL MEDICATIONS: - Lovenox 40 mg subcu daily - Prilosec 40 mg daily - aspirin 81 mg daily - Lopressor 12.5 mg daily - spironolactone 25 mg every morning - Colace 100 mg twice a day - Senokot one tablet nightly - Levemir 25 units nightly - Humalog insulin sliding scale - fish oil one capsule twice a day - gemfibrozil 600 mg twice a day - glipizide 5 mg twice a day - hypoglycemic protocol. REVIEW OF SYSTEMS: No complaints. 02/13 right knee pain, better with Tylenol three times a day. Right hand weakness. All other systems negative. PHYSICAL EXAMINATION: Temperature 97.2, pulse 70, respiratory rate 16, blood pressure 145/80, 94% on room air. Generally, patient is awake, alert, oriented to himself, answering questions appropriately. Face is symmetric. Tongue is midline. No jugular venous distention (JVD). No thyromegaly. Patient had persistent decrease in sensation of the right upper extremity, also with persistent (Dictation ended here) MTDD
[2019-07-26 19:40] VITALS: BP 158/80
[2019-07-26] MEDS: SENNA 8.6 MG TAB (SENOKOT) PO SCH (20:20)
[2019-07-26] MEDS: LEVEMIR (INSULIN DETEMIR) 1 UNITS/0.01ML SC SCH (20:21)
[2019-07-27] MEDS ORDERED: IBUPROFEN 600 MG TAB PO ONE (05:45)
[2019-07-27 06:19] VITALS: BP 156/77
[2019-07-27] MEDS: ENOXAPARIN 40 MG/0.4 ML SYRINGE (J1650) SC SCH (08:59)
[2019-07-27] MEDS: METOPROLOL TART 12.5 MG PER 1/2 TAB PO SCH (08:59)
[2019-07-27] MEDS: glipiZIDE (GLUCOTROL) 5 MG TAB PO SCH ×2 (08:59→17:33)
[2019-07-27] MEDS: DOCUSATE SODIUM 100 MG CAP PO SCH ×2 (08:59→20:03)
[2019-07-27] MEDS: REMEDY PHYTOPLEX Z-GUARD PASTE 113GM TUBE (FROM STOREROOM PRODUCT) TOP SCH ×3 (09:00→20:05)
[2019-07-27] MEDS: OMEPRAZOLE 20 MG CAP PO SCH (09:00)
[2019-07-27] MEDS: gemfibroziL 600 MG TAB PO SCH ×2 (09:00→17:33)
[2019-07-27] MEDS: OMEGA-3 1000MG CAPSULE PO SCH ×2 (09:00→20:03)
[2019-07-27] MEDS: SPIRONOLACTONE 25 MG TAB PO SCH (09:00)
[2019-07-27] MEDS: ASPIRIN 81 MG ENTERIC TAB PO SCH (09:00)
[2019-07-27] MEDS: HumaLOG INSULIN (NovoLOG) PER UNIT SC SCH ×4 (09:01→20:04)
[2019-07-27] MEDS: ACETAMINOPHEN 500 MG TAB PO SCH ×3 (09:01→21:42)
[2019-07-27 14:00] VITALS: BP 124/59
[2019-07-27 19:45] VITALS: BP 150/90
[2019-07-27] MEDS: SENNA 8.6 MG TAB (SENOKOT) PO SCH (20:03)
[2019-07-27] MEDS: LEVEMIR (INSULIN DETEMIR) 1 UNITS/0.01ML SC SCH (20:04)
[2019-07-27] MEDS: IBUPROFEN 400 MG TAB PO PRN (20:05)
[2019-07-28 06:23] VITALS: BP 157/77
[2019-07-28 06:36] LABS: HEMATOCRIT 35.1 % (42.0-52.0); HEMOGLOBIN 12.2 g/dl (13.5-17.5); MEAN CORPUSCULAR HEMOGLOBIN 30.7 pg (27.0-33.0); MEAN CORPUSCULAR HGB CONC 34.8 g/dl (32.0-36.5); MEAN CORPUSCULAR VOLUME 88.4 fl (80.0-96.0); PLATELET COUNT, AUTOMATED 266 10^3/uL (150-450); RED BLOOD COUNT 3.97 10^6/uL (4.30-6.10)
[2019-07-28] MEDS: OMEGA-3 1000MG CAPSULE PO SCH ×2 (08:14→20:46)
[2019-07-28] MEDS: glipiZIDE (GLUCOTROL) 5 MG TAB PO SCH ×2 (08:14→17:25)
[2019-07-28] MEDS: SPIRONOLACTONE 25 MG TAB PO SCH (08:14)
[2019-07-28] MEDS: ENOXAPARIN 40 MG/0.4 ML SYRINGE (J1650) SC SCH (08:14)
[2019-07-28] MEDS: ASPIRIN 81 MG ENTERIC TAB PO SCH (08:14)
[2019-07-28] MEDS: gemfibroziL 600 MG TAB PO SCH ×2 (08:14→17:25)
[2019-07-28] MEDS: ACETAMINOPHEN 500 MG TAB PO SCH ×3 (08:14→20:46)
[2019-07-28] MEDS: OMEPRAZOLE 20 MG CAP PO SCH (08:15)
[2019-07-28] MEDS: REMEDY PHYTOPLEX Z-GUARD PASTE 113GM TUBE (FROM STOREROOM PRODUCT) TOP SCH ×3 (08:15→20:47)
[2019-07-28] MEDS: HumaLOG INSULIN (NovoLOG) PER UNIT SC SCH ×4 (08:15→20:46)
[2019-07-28] MEDS: DOCUSATE SODIUM 100 MG CAP PO SCH ×2 (08:15→20:46)
[2019-07-28] MEDS: METOPROLOL TART 12.5 MG PER 1/2 TAB PO SCH (08:15)
--- NOTE | 2019-07-28 11:22 | IPNPDOC ---
PM&R Progress Note DATE OF SERVICE: Jul 28, 2019 Teasel Setter Progress Note Subjective: Patient seen in therapy stating he gets left ankle pain at night for which ibuprofen helps and was encouraged to not take more often than that to help with the healing of his left ankle fracture. He denies any worsening weakness in his right arm. REVIEW OF SYSTEMS: The following is a completed review of systems and has been reviewed. Review of systems otherwise unremarkable. PAIN: Patient self reports no pain EYES: No recent vision changes EARS, NOSE, & THROAT: No throat pain, or dysphagia, or rhinorrhea CARDIOVASCULAR: Denies chest pain or palpitations PULMONARY: Denies shortness of breath GASTROINTESTINAL: Denies constipation/diarrhea GENITOURINARY: denies retention/incontinence/dysuria MUSCULOSKELETAL: right sided weakness and left ankle fracture NEUROLOGICAL:RUE and RLE paresis HEMATOLOGICAL: denies easy bruising SKIN: denies rash PSYCHIATRIC: Unremarkable All other review of systems found to be negative. PHYSICAL EXAMINATION: VITAL SIGNS: Please see below. GENERAL: Pleasant and cooperative. No acute distress. HEENT: PERRL. Extraocular movements intact. Clear conjunctiva CARDIOVASCULAR: Regular rate and rhythm. No murmurs, rubs, or gallops LUNGS: Clear to auscultation bilaterally. No wheezes. No rhonchi ABDOMEN: Soft, nontender, nondistended. Positive bowel sounds. Normal active bowel sounds NEUROLOGICAL: Alert and oriented times three. Cranial nerves II through XII grossly intact. Sensation grossly intact, however diminished to light touch and pinprick on right side (-) Hoffmans bilat (-) babinski on right, no clonus Left LE casted, able to wiggle toes EXTREMITIES: 5\5 strength left upper extremities. 3+ RUE, 4-\5 strength right lower extremity. 5/5 strength in left hip flexion and knee extension, able to wiggle toes (exam limited due to cast) +bilat foot edema with left D1 toe amputation healed SKIN: intact ASSESSMENT:78-year-old M with past medical history of recent left ankle fracture who presents status post right sided paresis in setting of cervical myleopathy PLAN: 1. Rehab- PT/OT advance gait and ADL training maintaining NWB to LLE- strengthen/stretch/maintain ROM all 4 limbs 2. Ortho- s/p left ankle fracture with ORIF- ortho consulted 3. Neuro: cervical myelopathy with RUE>RLE weakness, patient declining surgical decompression, no bowel/bladder symptoms, will monitor for further decline 4. CArdiac: hx of diastolic CHF- daily weights, aldactone, fluid restrict -CAD s/p CABG c/u ASa and metoprolol- medicine consulted to assist in overall management -HLD- c/u Lopid 5. Resp: encourage incentive spirometry 6. Endo: pmh DM c/u insulin and glipizide, ISS ordered as well- adjust prn -will add consistent carb to low sodium diet 7. : monitor PVRs 8. DVT ppx: lovenox and TEDs to RLE 9. GI ppx: prilosec 10. PAin: tyelneol and ibuprofen prn 11. DIspo: TBD Allergies Coded Allergies: Penicillins (Verified Allergy, Mild, RASH, 06/24/19) Fbqyusf-Uvb-Gwt Reductase Inhibitor (Verified Allergy, Unknown, MYALGIA, 07/21/19) cephalexin (Verified Allergy, Unknown, RASH, 07/21/19) clindamycin (Verified Allergy, Unknown, HIVES, 07/21/19) cyclobenzaprine (Verified Allergy, Unknown, HIVES, 07/21/19) ezetimibe (Verified Allergy, Unknown, BONE PAIN, 07/21/19) atorvastatin (Verified Adverse Reaction, Intermediate, LEG PAIN, 06/24/19) Vital Signs Vital Signs Date Time Temp Pulse Resp B/P (MAP) Pulse Ox O2 Delivery O2 Flow Rate FiO2 07/28/19 08:15 66 157/77 07/28/19 06:23 97.5 18 96 Room Air Laboratory Data CBC/BMP Laboratory Tests 07/28/19 06:20 Labs 24H Laboratory Tests 2 07/27/19 11:42: Bedside Glucose (Misc Panel) 132H 07/27/19 16:20: Bedside Glucose (Misc Panel) 190H 07/27/19 19:37: Bedside Glucose (Misc Panel) 364H 07/28/19 06:00: Bedside Glucose (Misc Panel) 178H 07/28/19 06:20: Nucleated Red Blood Cells % (auto) 0.0 Current Medications Current Medications Current Medications Medications (Trade) Dose Ordered Sig/Lisa Route PRN Reason Start Time Stop Time Status Last Admin Dose Admin Acetaminophen (Tylenol Tab) 1,000 mg TID PO 07/25/19 16:00 07/28/19 08:14 Aspirin (Ecotrin) 81 mg DAILY PO 07/26/19 09:00 07/28/19 08:14 Bisacodyl (Dulcolax Suppository) 10 mg DAILYPRN PRN [place] CONSTIPATION 07/25/19 12:30 Dextrose (Dextrose 50%) 25 ml ASDIRECTED PRN IV SEE LABEL COMMENTS 07/25/19 12:30 Docusate Sodium (Colace) 100 mg BID PO 07/25/19 21:00 07/28/19 08:15 Enoxaparin Sodium (Lovenox) 40 mg DAILY SC 07/26/19 09:00 07/28/19 08:14 Fish Oil (Cascade-3 (1000mg)) 1 cap BID PO 07/25/19 21:00 07/28/19 08:14 Gemfibrozil (Lopid) 600 mg BID@0730,1730 PO 07/25/19 17:30 07/28/19 08:14 Glipizide (Glucotrol) 5 mg BID@0730,1730 PO 07/25/19 17:30 07/28/19 08:14 Glucagon (Glucagon) 1 mg ASDIRECTED PRN SC SEE LABEL COMMENTS 07/25/19 12:30 Glucose (Glucose) 16 GM ASDIRECTED PRN PO SEE LABEL COMMENTS 07/25/19 12:30 Ibuprofen (Advil) 400 mg Q6HP PRN PO PAIN 07/27/19 11:15 07/27/19 20:05 Insulin Detemir (Levemir Insulin) 25 units QHS SC 07/25/19 21:00 07/27/19 20:04 Insulin Human Lispro (HumaLOG INSULIN) SEE PROTOCOL TABLE AC SC 07/25/19 17:30 07/28/19 08:15 Insulin Human Lispro (HumaLOG INSULIN) SEE PROTOCOL TABLE QHS SC 07/25/19 21:00 07/27/19 20:04 Metoprolol Tartrate (Lopressor) 12.5 mg DAILY PO 07/26/19 09:00 07/28/19 08:15 Omeprazole (PriLOSEC) 40 mg DAILY PO 07/26/19 09:00 07/28/19 08:15 Senna (Senokot) 1 tab QHS PO 07/25/19 21:00 07/27/19 20:03 Spironolactone (Aldactone) 25 mg QAM PO 07/26/19 09:00 07/28/19 08:14 TONY WU MD Jul 28, 2019 11:22
[2019-07-28 12:49] LABS: BASO % 0.4 % (0.0-1.0); EOS # 0.1 10^3/uL (0.0-0.5); HEMATOCRIT 37.8 % (42.0-52.0); HEMOGLOBIN 12.9 g/dl (13.5-17.5); LYMPH # 1.6 10^3/uL (1.5-5.0); LYMPH % 28.6 % (24.0-44.0); MEAN CORPUSCULAR HEMOGLOBIN 30.9 pg (27.0-33.0); MEAN CORPUSCULAR HGB CONC 34.1 g/dl (32.0-36.5); MEAN CORPUSCULAR VOLUME 90.4 fl (80.0-96.0); MONO # 0.5 10^3/uL (0.0-0.8); MONO % 9.3 % (0.0-5.0); NEUTROPHILS # 3.3 10^3/uL (1.5-8.5); NEUTROPHILS % 59.5 % (36.0-66.0); PLATELET COUNT, AUTOMATED 289 10^3/uL (150-450); RED BLOOD COUNT 4.18 10^6/uL (4.30-6.10); WHITE BLOOD COUNT 5.5 10^3/uL (4.0-10.0)
[2019-07-28 13:13] LABS: BLOOD UREA NITROGEN 21 MG/DL (7-18); CALCIUM LEVEL 9.7 MG/DL (8.8-10.2); CARBON DIOXIDE LEVEL 25 MEQ/L (21-32); CHLORIDE LEVEL 101 MEQ/L (98-107); CREATININE FOR GFR 1.03 MG/DL (0.70-1.30); GLOMERULAR FILTRATION RATE > 60.0 (>35); GLUCOSE, FASTING 125 MG/DL (70-100); POTASSIUM SERUM 4.1 MEQ/L (3.5-5.1); SODIUM LEVEL 133 MEQ/L (136-145)
[2019-07-28 14:00] VITALS: BP 136/67
--- NOTE | 2019-07-28 14:22 | CR ---
DATE OF CONSULTATION: 07/28/2019 REASON FOR CONSULTATION: Ankle fracture and spinal stenosis. HISTORY: This is an 78-year-old male patient who was seen on the acute rehabilitation floor. He is being treated in orthopedics for a left ankle fracture by Dr. Jordan, he has also been seen by Dr. Garcia and Dr. De Guzman for his cervical spinal stenosis. He has elected for not having surgery for his spinal stenosis even though that was the recommendation and once again today he is declining any surgery for his cervical spinal stenosis. He feels his right arm symptoms are about the same. He is working with physical therapy trying to improve his symptoms. He is non-weightbearing on the left lower extremity and that is a challenge for him but he is doing the best he can with that as well. Again, he has declined any cervical surgery or surgery and his left ankle. He denies any changes bowel or bladder habits. Nursing staff in the room and Dr Morris also note no overall change in his situation since the last visit. PHYSICAL EXAMINATION: Exam today reveals an elderly male patient slightly confused in the hospital bed. He is well-nourished. There is symmetrical rise and fall of the chest: Unlabored breathing. That is sitting comfortably in the bed. His cast is in good repair. There is brisk capillary refill of the exposed toes. No pain with passive range of motion of the great toe. The cast is in good repair. He does hold his right arm in somewhat flexed and abducted position. The Velasquez's in the bilateral upper extremities is negative and only negative clonus on the right lower extremity, cast on the left lower extremity. His mood and affect are flat. IMPRESSION: Left ankle fracture that is being treated non operatively with a non-weightbearing cast and cervical spinal stenosis. The patient has declined surgery. PLAN: From an orthopedic perspective, he needs a follow up in our office as an outpatient and the first week in August with Dr. Jordan with x-rays out of the cast at that juncture. For his spinal stenosis, at this point he has continued to decline anything surgical at this juncture and wants to just live with it and we did explain the findings once again to him today, the risks of not doing the recommended surgery, but again he declines anything surgical, so he will continue to work with OT and PT and maximize his abilities at this juncture. He needs to stay non-weightbearing on his left lower extremity. I did call his family Sole to discuss his case as he asked me to call his family member. The called started at 2:10, lasted 17 minutes. I also discussed directly with Dr. Morris his current condition and the plan as well. We are happy to see him back if further need arises. Feel free to reconsult orthopedics at that juncture. Thank you for this pleasant consult. PHYLLIS
[2019-07-28 20:00] VITALS: BP 142/65
[2019-07-28] MEDS: IBUPROFEN 400 MG TAB PO PRN (20:45)
[2019-07-28] MEDS: LEVEMIR (INSULIN DETEMIR) 1 UNITS/0.01ML SC SCH (20:45)
[2019-07-28] MEDS: SENNA 8.6 MG TAB (SENOKOT) PO SCH (20:46)
[2019-07-29 06:00] VITALS: BP 140/75
[2019-07-29] MEDS: HumaLOG INSULIN (NovoLOG) PER UNIT SC SCH ×4 (08:07→20:19)
[2019-07-29] MEDS: ENOXAPARIN 40 MG/0.4 ML SYRINGE (J1650) SC SCH (08:08)
[2019-07-29] MEDS: OMEPRAZOLE 20 MG CAP PO SCH (08:08)
[2019-07-29] MEDS: ACETAMINOPHEN 500 MG TAB PO SCH ×3 (08:09→20:19)
[2019-07-29] MEDS: SPIRONOLACTONE 25 MG TAB PO SCH (08:10)
[2019-07-29] MEDS: OMEGA-3 1000MG CAPSULE PO SCH ×2 (08:10→20:19)
[2019-07-29] MEDS: ASPIRIN 81 MG ENTERIC TAB PO SCH (08:10)
[2019-07-29] MEDS: DOCUSATE SODIUM 100 MG CAP PO SCH ×2 (08:10→20:19)
[2019-07-29] MEDS: METOPROLOL TART 12.5 MG PER 1/2 TAB PO SCH (08:10)
[2019-07-29] MEDS: glipiZIDE (GLUCOTROL) 5 MG TAB PO SCH ×2 (08:10→17:25)
[2019-07-29] MEDS: gemfibroziL 600 MG TAB PO SCH ×2 (08:10→17:25)
[2019-07-29] MEDS: REMEDY PHYTOPLEX Z-GUARD PASTE 113GM TUBE (FROM STOREROOM PRODUCT) TOP SCH ×3 (08:11→20:20)
--- NOTE | 2019-07-29 12:27 | IPNPDOC ---
PM&R Progress Note DATE OF SERVICE: Jul 29, 2019 Co Chairman Progress Note Subjective: Patient seen today stating he has no pain and is working on transfers, but finds it hard to stand on his left foot. REVIEW OF SYSTEMS: The following is a completed review of systems and has been reviewed. Review of systems otherwise unremarkable. PAIN: Patient self reports no pain EYES: No recent vision changes EARS, NOSE, & THROAT: No throat pain, or dysphagia, or rhinorrhea CARDIOVASCULAR: Denies chest pain or palpitations PULMONARY: Denies shortness of breath GASTROINTESTINAL: Denies constipation/diarrhea GENITOURINARY: denies retention/incontinence/dysuria MUSCULOSKELETAL: right sided weakness and left ankle fracture NEUROLOGICAL:RUE and RLE paresis HEMATOLOGICAL: denies easy bruising SKIN: denies rash PSYCHIATRIC: Unremarkable All other review of systems found to be negative. PHYSICAL EXAMINATION: VITAL SIGNS: Please see below. GENERAL: Pleasant and cooperative. No acute distress. HEENT: PERRL. Extraocular movements intact. Clear conjunctiva CARDIOVASCULAR: Regular rate and rhythm. No murmurs, rubs, or gallops LUNGS: Clear to auscultation bilaterally. No wheezes. No rhonchi ABDOMEN: Soft, nontender, nondistended. Positive bowel sounds. Normal active bowel sounds NEUROLOGICAL: Alert and oriented times three. Cranial nerves II through XII grossly intact. Sensation grossly intact, however diminished to light touch and pinprick on right side (-) Hoffmans bilat (-) babinski on right, no clonus Left LE casted, able to wiggle toes EXTREMITIES: 5\5 strength left upper extremities. 3+ RUE, 4-\5 strength right lower extremity. 5/5 strength in left hip flexion and knee extension, able to wiggle toes (exam limited due to cast) +bilat foot edema with left D1 toe amputation healed SKIN: intact ASSESSMENT:78-year-old M with past medical history of recent left ankle fracture who presents status post right sided paresis in setting of cervical myleopathy PLAN: 1. Rehab- PT/OT advance gait and ADL training maintaining NWB to LLE- strengthen/stretch/maintain ROM all 4 limbs 2. Ortho- s/p left ankle fracture with ORIF- ortho consulted and recs appreciated, patient to f/u with ortho first week of August for f/u X-rays left ankle, c/u NWB 3. Neuro: cervical myelopathy with RUE>RLE weakness, patient declining surgical decompression, no bowel/bladder symptoms, will monitor for further decline 4. CArdiac: hx of diastolic CHF- daily weights, aldactone, fluid restrict -CAD s/p CABG c/u ASa and metoprolol- medicine consulted to assist in overall management -HLD- c/u Lopid 5. Resp: encourage incentive spirometry 6. Endo: pmh DM c/u insulin and glipizide, ISS ordered as well- adjust prn -will add consistent carb to low sodium diet 7. : monitor PVRs 8. DVT ppx: lovenox and TEDs to RLE 9. GI ppx: prilosec 10. PAin: tyelneol and ibuprofen prn 11. DIspo: TBD Allergies Coded Allergies: Penicillins (Verified Allergy, Mild, RASH, 06/24/19) Wzjcigv-Orv-Inm Reductase Inhibitor (Verified Allergy, Unknown, MYALGIA, 07/21/19) cephalexin (Verified Allergy, Unknown, RASH, 07/21/19) clindamycin (Verified Allergy, Unknown, HIVES, 07/21/19) cyclobenzaprine (Verified Allergy, Unknown, HIVES, 07/21/19) ezetimibe (Verified Allergy, Unknown, BONE PAIN, 07/21/19) atorvastatin (Verified Adverse Reaction, Intermediate, LEG PAIN, 06/24/19) Vital Signs Vital Signs Date Time Temp Pulse Resp B/P (MAP) Pulse Ox O2 Delivery O2 Flow Rate FiO2 07/29/19 08:10 70 133/75 07/29/19 06:00 99.6 17 96 Room Air Laboratory Data CBC/BMP Laboratory Tests 07/28/19 12:26 Labs 24H Laboratory Tests 2 07/28/19 12:26: Immature Granulocyte % (Auto) 0.2, Neutrophils (%) (Auto) 59.5, Lymphocytes (%) (Auto) 28.6, Monocytes (%) (Auto) 9.3H, Eosinophils (%) (Auto) 2.0, Basophils (%) (Auto) 0.4, Neutrophils # (Auto) 3.3, Lymphocytes # (Auto) 1.6, Monocytes # (Auto) 0.5, Eosinophils # (Auto) 0.1, Basophils # (Auto) 0.0, Nucleated Red Blood Cells % (auto) 0.0, Anion Gap 7L, Glomerular Filtration Rate > 60.0, Calcium Level 9.7 07/28/19 16:27: Bedside Glucose (Misc Panel) 193H 07/28/19 19:46: Bedside Glucose (Misc Panel) 207H 07/29/19 07:27: Bedside Glucose (Misc Panel) 248H 07/29/19 12:02: Bedside Glucose (Misc Panel) 105 Current Medications Current Medications Current Medications Medications (Trade) Dose Ordered Sig/Lisa Route PRN Reason Start Time Stop Time Status Last Admin Dose Admin Acetaminophen (Tylenol Tab) 1,000 mg TID PO 07/25/19 16:00 07/29/19 08:09 Aspirin (Ecotrin) 81 mg DAILY PO 07/26/19 09:00 07/29/19 08:10 Bisacodyl (Dulcolax Suppository) 10 mg DAILYPRN PRN [place] CONSTIPATION 07/25/19 12:30 Dextrose (Dextrose 50%) 25 ml ASDIRECTED PRN IV SEE LABEL COMMENTS 07/25/19 12:30 Docusate Sodium (Colace) 100 mg BID PO 07/25/19 21:00 07/29/19 08:10 Enoxaparin Sodium (Lovenox) 40 mg DAILY SC 07/26/19 09:00 07/29/19 08:08 Fish Oil ([place]-3 (1000mg)) 1 cap BID PO 07/25/19 21:00 07/29/19 08:10 Gemfibrozil (Lopid) 600 mg BID@0730,1730 PO 07/25/19 17:30 07/29/19 08:10 Glipizide (Glucotrol) 5 mg BID@0730,1730 PO 07/25/19 17:30 07/29/19 08:10 Glucagon (Glucagon) 1 mg ASDIRECTED PRN SC SEE LABEL COMMENTS 07/25/19 12:30 Glucose (Glucose) 16 GM ASDIRECTED PRN PO SEE LABEL COMMENTS 07/25/19 12:30 Ibuprofen (Advil) 400 mg Q6HP PRN PO PAIN 07/27/19 11:15 07/28/19 20:45 Insulin Detemir (Levemir Insulin) 25 units QHS SC 07/25/19 21:00 07/28/19 20:45 Insulin Human Lispro (HumaLOG INSULIN) SEE PROTOCOL TABLE AC SC 07/25/19 17:30 07/29/19 12:13 Insulin Human Lispro (HumaLOG INSULIN) SEE PROTOCOL TABLE QHS SC 07/25/19 21:00 07/27/19 20:04 Metoprolol Tartrate (Lopressor) 12.5 mg DAILY PO 07/26/19 09:00 07/29/19 08:10 Omeprazole (PriLOSEC) 40 mg DAILY PO 07/26/19 09:00 07/29/19 08:08 Senna (Senokot) 1 tab QHS PO 07/25/19 21:00 07/28/19 20:46 Spironolactone (Aldactone) 25 mg QAM PO 07/26/19 09:00 07/29/19 08:10 TONY WU MD Jul 29, 2019 12:27
[2019-07-29 14:00] VITALS: BP 156/75
[2019-07-29 20:00] VITALS: BP 148/62
[2019-07-29] MEDS: LEVEMIR (INSULIN DETEMIR) 1 UNITS/0.01ML SC SCH (20:18)
[2019-07-29] MEDS: IBUPROFEN 400 MG TAB PO PRN (20:19)
[2019-07-29] MEDS: SENNA 8.6 MG TAB (SENOKOT) PO SCH (20:19)
[2019-07-30 06:00] VITALS: BP 168/76
[2019-07-30 06:15] LABS: BASO % 0.7 % (0.0-1.0); EOS # 0.1 10^3/uL (0.0-0.5); EOS % 2.9 % (0.0-3.0); HEMOGLOBIN 12.6 g/dl (13.5-17.5); LYMPH # 1.3 10^3/uL (1.5-5.0); LYMPH % 31.3 % (24.0-44.0); MEAN CORPUSCULAR HEMOGLOBIN 30.5 pg (27.0-33.0); MEAN CORPUSCULAR HGB CONC 34.1 g/dl (32.0-36.5); MEAN CORPUSCULAR VOLUME 89.6 fl (80.0-96.0); MONO # 0.4 10^3/uL (0.0-0.8); MONO % 8.9 % (0.0-5.0); NEUTROPHILS # 2.3 10^3/uL (1.5-8.5); PLATELET COUNT, AUTOMATED 266 10^3/uL (150-450); RED BLOOD COUNT 4.13 10^6/uL (4.30-6.10); WHITE BLOOD COUNT 4.2 10^3/uL (4.0-10.0)
[2019-07-30 06:36] LABS: BLOOD UREA NITROGEN 24 MG/DL (7-18); CALCIUM LEVEL 9.7 MG/DL (8.8-10.2); CARBON DIOXIDE LEVEL 22 MEQ/L (21-32); CHLORIDE LEVEL 104 MEQ/L (98-107); CREATININE FOR GFR 0.98 MG/DL (0.70-1.30); GLOMERULAR FILTRATION RATE > 60.0 (>35); GLUCOSE, FASTING 164 MG/DL (70-100); POTASSIUM SERUM 4.1 MEQ/L (3.5-5.1); SODIUM LEVEL 134 MEQ/L (136-145)
[2019-07-30] MEDS: DOCUSATE SODIUM 100 MG CAP PO SCH ×2 (08:20→21:25)
[2019-07-30] MEDS: OMEGA-3 1000MG CAPSULE PO SCH ×2 (08:21→21:24)
[2019-07-30] MEDS: ASPIRIN 81 MG ENTERIC TAB PO SCH (08:21)
[2019-07-30] MEDS: ACETAMINOPHEN 500 MG TAB PO SCH ×3 (08:21→21:25)
[2019-07-30] MEDS: METOPROLOL TART 12.5 MG PER 1/2 TAB PO SCH (08:21)
[2019-07-30] MEDS: SPIRONOLACTONE 25 MG TAB PO SCH (08:21)
[2019-07-30] MEDS: HumaLOG INSULIN (NovoLOG) PER UNIT SC SCH ×4 (08:21→21:00)
[2019-07-30] MEDS: gemfibroziL 600 MG TAB PO SCH ×2 (08:21→17:10)
[2019-07-30] MEDS: ENOXAPARIN 40 MG/0.4 ML SYRINGE (J1650) SC SCH (08:22)
[2019-07-30] MEDS: OMEPRAZOLE 20 MG CAP PO SCH (08:22)
[2019-07-30] MEDS: REMEDY PHYTOPLEX Z-GUARD PASTE 113GM TUBE (FROM STOREROOM PRODUCT) TOP SCH ×3 (08:22→21:00)
[2019-07-30] MEDS: glipiZIDE (GLUCOTROL) 5 MG TAB PO SCH ×2 (08:22→17:10)
--- NOTE | 2019-07-30 11:43 | IPNPDOC ---
PM&R Progress Note DATE OF SERVICE: Jul 30, 2019 Sheet Metal Former Progress Note Subjective: Patient seen in therapy working on bumping up the stairs while in a wheelchair in preparation for going home. He reports he feels safe doing this. No compla ints or trouble going to the bathroom. REVIEW OF SYSTEMS: The following is a completed review of systems and has been reviewed. Review of systems otherwise unremarkable. PAIN: Patient self reports no pain EYES: No recent vision changes EARS, NOSE, & THROAT: No throat pain, or dysphagia, or rhinorrhea CARDIOVASCULAR: Denies chest pain or palpitations PULMONARY: Denies shortness of breath GASTROINTESTINAL: Denies constipation/diarrhea GENITOURINARY: denies retention/incontinence/dysuria MUSCULOSKELETAL: right sided weakness and left ankle fracture NEUROLOGICAL:RUE and RLE paresis HEMATOLOGICAL: denies easy bruising SKIN: denies rash PSYCHIATRIC: Unremarkable All other review of systems found to be negative. PHYSICAL EXAMINATION: VITAL SIGNS: Please see below. GENERAL: Pleasant and cooperative. No acute distress. HEENT: PERRL. Extraocular movements intact. Clear conjunctiva CARDIOVASCULAR: Regular rate and rhythm. No murmurs, rubs, or gallops LUNGS: Clear to auscultation bilaterally. No wheezes. No rhonchi ABDOMEN: Soft, nontender, nondistended. Positive bowel sounds. Normal active bowel sounds NEUROLOGICAL: Alert and oriented times three. Cranial nerves II through XII grossly intact. Sensation grossly intact, however diminished to light touch and pinprick on right side (-) Hoffmans bilat (-) babinski on right, no clonus Left LE casted, able to wiggle toes EXTREMITIES: 5\5 strength left upper extremities. 3+ RUE, 4-\5 strength right lower extremity. 5/5 strength in left hip flexion and knee extension, able to wiggle toes (exam limited due to cast) +bilat foot edema with left D1 toe amputation healed (improving) SKIN: intact ASSESSMENT:78-year-old M with past medical history of recent left ankle fracture who presents status post right sided paresis in setting of cervical myleopathy PLAN: 1. Rehab- PT/OT advance gait and ADL training maintaining NWB to [facility]/stretch/maintain ROM all 4 limbs 2. Ortho- s/p left ankle fracture with ORIF- ortho consulted and recs appreciated, patient to f/u with ortho first week of August for f/u X-rays left ankle, c/u NWB 3. Neuro: cervical myelopathy with RUE>RLE weakness, patient declining surgical decompression, no bowel/bladder symptoms, will monitor for further decline 4. CArdiac: hx of diastolic CHF- daily weights, aldactone, fluid restrict -CAD s/p CABG c/u ASa and metoprolol- medicine consulted to assist in overall management -HLD- c/u Lopid 5. Resp: encourage incentive spirometry 6. Endo: pmh DM c/u insulin and glipizide, ISS ordered as well- adjust prn -c/u consistent carb to low sodium diet 7. : monitor PVRs 8. DVT ppx: lovenox and TEDs to RLE 9. GI ppx: prilosec 10. PAin: c/u tyelneol and ibuprofen prn 11. DIspo: TBD, ideally on same day as ortho f/u appointment which is pending Allergies Coded Allergies: Penicillins (Verified Allergy, Mild, RASH, 06/24/19) Trlfzcv-Oev-Msn Reductase Inhibitor (Verified Allergy, Unknown, MYALGIA, 07/21/19) cephalexin (Verified Allergy, Unknown, RASH, 07/21/19) clindamycin (Verified Allergy, Unknown, HIVES, 07/21/19) cyclobenzaprine (Verified Allergy, Unknown, HIVES, 07/21/19) ezetimibe (Verified Allergy, Unknown, BONE PAIN, 07/21/19) atorvastatin (Verified Adverse Reaction, Intermediate, LEG PAIN, 06/24/19) Vital Signs Vital Signs Date Time Temp Pulse Resp B/P (MAP) Pulse Ox O2 Delivery O2 Flow Rate FiO2 07/30/19 08:21 63 168/76 07/30/19 06:00 98.0 18 94 Room Air Laboratory Data CBC/BMP Laboratory Tests 07/30/19 05:46 Labs 24H Laboratory Tests 2 07/29/19 12:02: Bedside Glucose (Misc Panel) 105 07/29/19 17:13: Bedside Glucose (Misc Panel) 120H 07/29/19 19:52: Bedside Glucose (Misc Panel) 173H 07/30/19 05:46: Immature Granulocyte % (Auto) 0.2, Neutrophils (%) (Auto) 56.0, Lymphocytes (%) (Auto) 31.3, Monocytes (%) (Auto) 8.9H, Eosinophils (%) (Auto) 2.9, Basophils (%) (Auto) 0.7, Neutrophils # (Auto) 2.3, Lymphocytes # (Auto) 1.3L, Monocytes # (Auto) 0.4, Eosinophils # (Auto) 0.1, Basophils # (Auto) 0.0, Nucleated Red Blood Cells % (auto) 0.0, Anion Gap 8, Glomerular Filtration Rate > 60.0, Calcium Level 9.7 Current Medications Current Medications Current Medications Medications (Trade) Dose Ordered Sig/Lisa Route PRN Reason Start Time Stop Time Status Last Admin Dose Admin Acetaminophen (Tylenol Tab) 1,000 mg TID PO 07/25/19 16:00 07/30/19 08:21 Aspirin (Ecotrin) 81 mg DAILY PO 07/26/19 09:00 07/30/19 08:21 Bisacodyl (Dulcolax Suppository) 10 mg DAILYPRN PRN ND CONSTIPATION 07/25/19 12:30 Dextrose (Dextrose 50%) 25 ml ASDIRECTED PRN IV SEE LABEL COMMENTS 07/25/19 12:30 Docusate Sodium (Colace) 100 mg BID PO 07/25/19 21:00 07/30/19 08:20 Enoxaparin Sodium (Lovenox) 40 mg DAILY SC 07/26/19 09:00 07/30/19 08:22 Fish Oil ([place]-3 (1000mg)) 1 cap BID PO 07/25/19 21:00 07/30/19 08:21 Gemfibrozil (Lopid) 600 mg BID@0730,1730 PO 07/25/19 17:30 07/30/19 08:21 Glipizide (Glucotrol) 5 mg BID@0730,1730 PO 07/25/19 17:30 07/30/19 08:22 Glucagon (Glucagon) 1 mg ASDIRECTED PRN SC SEE LABEL COMMENTS 07/25/19 12:30 Glucose (Glucose) 16 GM ASDIRECTED PRN PO SEE LABEL COMMENTS 07/25/19 12:30 Ibuprofen (Advil) 400 mg Q6HP PRN PO PAIN 07/27/19 11:15 07/29/19 20:19 Insulin Detemir (Levemir Insulin) 25 units QHS SC 07/25/19 21:00 07/29/19 20:18 Insulin Human Lispro (HumaLOG INSULIN) SEE PROTOCOL TABLE AC SC 07/25/19 17:30 07/30/19 08:21 Insulin Human Lispro (HumaLOG INSULIN) SEE PROTOCOL TABLE QHS SC 07/25/19 21:00 07/27/19 20:04 Metoprolol Tartrate (Lopressor) 12.5 mg DAILY PO 07/26/19 09:00 07/30/19 08:21 Omeprazole (PriLOSEC) 40 mg DAILY PO 07/26/19 09:00 07/30/19 08:22 Senna (Senokot) 1 tab QHS PO 07/25/19 21:00 07/29/19 20:19 Spironolactone (Aldactone) 25 mg QAM PO 07/26/19 09:00 07/30/19 08:21 TONY WU MD Jul 30, 2019 11:43
[2019-07-30 14:00] VITALS: BP 127/60
[2019-07-30 21:00] VITALS: BP 160/70
[2019-07-30] MEDS: LEVEMIR (INSULIN DETEMIR) 1 UNITS/0.01ML SC SCH (21:24)
[2019-07-30] MEDS: SENNA 8.6 MG TAB (SENOKOT) PO SCH (21:25)
[2019-07-30] MEDS: IBUPROFEN 400 MG TAB PO PRN (21:26)
[2019-07-31 05:53] VITALS: BP 160/70
[2019-07-31] MEDS: glipiZIDE (GLUCOTROL) 5 MG TAB PO SCH ×2 (06:57→16:50)
[2019-07-31] MEDS: IBUPROFEN 400 MG TAB PO PRN ×2 (06:57→20:26)
[2019-07-31] MEDS: gemfibroziL 600 MG TAB PO SCH ×2 (06:57→16:50)
[2019-07-31] MEDS: METOPROLOL TART 12.5 MG PER 1/2 TAB PO SCH (08:30)
[2019-07-31] MEDS: SPIRONOLACTONE 25 MG TAB PO SCH (08:30)
[2019-07-31] MEDS: ASPIRIN 81 MG ENTERIC TAB PO SCH (08:30)
[2019-07-31] MEDS: DOCUSATE SODIUM 100 MG CAP PO SCH ×2 (08:30→20:24)
[2019-07-31] MEDS: ACETAMINOPHEN 500 MG TAB PO SCH ×3 (08:31→20:25)
[2019-07-31] MEDS: OMEPRAZOLE 20 MG CAP PO SCH (08:31)
[2019-07-31] MEDS: ENOXAPARIN 40 MG/0.4 ML SYRINGE (J1650) SC SCH (08:31)
[2019-07-31] MEDS: OMEGA-3 1000MG CAPSULE PO SCH ×2 (08:31→20:24)
[2019-07-31] MEDS: HumaLOG INSULIN (NovoLOG) PER UNIT SC SCH ×4 (08:31→20:25)
[2019-07-31] MEDS: REMEDY PHYTOPLEX Z-GUARD PASTE 113GM TUBE (FROM STOREROOM PRODUCT) TOP SCH ×3 (08:32→20:26)
[2019-07-31 14:00] VITALS: BP 141/66
--- NOTE | 2019-07-31 14:02 | IPNPDOC ---
PM&R Progress Note DATE OF SERVICE: Jul 31, 2019 Community Facilitator Progress Note Subjective: Patient reporting he feels well and has no new weakness or pain. REVIEW OF SYSTEMS: The following is a completed review of systems and has been reviewed. Review of systems otherwise unremarkable. PAIN: Patient self reports no pain EYES: No recent vision changes EARS, NOSE, & THROAT: No throat pain, or dysphagia, or rhinorrhea CARDIOVASCULAR: Denies chest pain or palpitations PULMONARY: Denies shortness of breath GASTROINTESTINAL: Denies constipation/diarrhea GENITOURINARY: denies retention/incontinence/dysuria MUSCULOSKELETAL: right sided weakness and left ankle fracture NEUROLOGICAL:RUE and RLE paresis HEMATOLOGICAL: denies easy bruising SKIN: denies rash PSYCHIATRIC: Unremarkable All other review of systems found to be negative. PHYSICAL EXAMINATION: VITAL SIGNS: Please see below. GENERAL: Pleasant and cooperative. No acute distress. HEENT: PERRL. Extraocular movements intact. Clear conjunctiva CARDIOVASCULAR: Regular rate and rhythm. No murmurs, rubs, or gallops LUNGS: Clear to auscultation bilaterally. No wheezes. No rhonchi ABDOMEN: Soft, nontender, nondistended. Positive bowel sounds. Normal active bowel sounds NEUROLOGICAL: Alert and oriented times three. Cranial nerves II through XII grossly intact. Sensation grossly intact, however diminished to light touch and pinprick on right side (-) Hoffmans bilat (-) babinski on right, no clonus Left LE casted, able to wiggle toes EXTREMITIES: 5\5 strength left upper extremities. 3+ RUE, 4-\5 strength right lower extremity. 5/5 strength in left hip flexion and knee extension, able to wiggle toes (exam limited due to cast) +bilat foot edema with left D1 toe amputation healed (improving) SKIN: intact ASSESSMENT:78-year-old M with past medical history of recent left ankle fracture who presents status post right sided paresis in setting of cervical myleopathy PLAN: 1. Rehab- PT/OT advance gait and ADL training maintaining NWB to LLE- strengthen/stretch/maintain ROM all 4 limbs 2. Ortho- s/p left ankle fracture with ORIF- ortho consulted and recs appreciated, patient to f/u with ortho first week of August for f/u X-rays left ankle, c/u NWB 3. Neuro: cervical myelopathy with RUE>RLE weakness, patient declining surgical decompression, no bowel/bladder symptoms, will monitor for further decline 4. CArdiac: hx of diastolic CHF- daily weights, aldactone, fluid restrict -CAD s/p CABG c/u ASa and metoprolol (will increase dose today as elevated BPs)- medicine consulted to assist in overall management -HLD- c/u Lopid 5. Resp: encourage incentive spirometry 6. Endo: pmh DM c/u insulin and glipizide, ISS ordered as well- adjust prn, improving FS overall -c/u consistent carb to low sodium diet 7. : monitor PVRs 8. DVT ppx: lovenox and TEDs to RLE 9. GI ppx: prilosec 10. PAin: c/u tyelneol and ibuprofen prn 11. DIspo: 07-26-19 to home with ortho f/u that day Allergies Coded Allergies: Penicillins (Verified Allergy, Mild, RASH, 06/24/19) Fjzfgty-Pcm-Jzf Reductase Inhibitor (Verified Allergy, Unknown, MYALGIA, 07/21/19) cephalexin (Verified Allergy, Unknown, RASH, 07/21/19) clindamycin (Verified Allergy, Unknown, HIVES, 07/21/19) cyclobenzaprine (Verified Allergy, Unknown, HIVES, 07/21/19) ezetimibe (Verified Allergy, Unknown, BONE PAIN, 07/21/19) atorvastatin (Verified Adverse Reaction, Intermediate, LEG PAIN, 06/24/19) Vital Signs Vital Signs Date Time Temp Pulse Resp B/P (MAP) Pulse Ox O2 Delivery O2 Flow Rate FiO2 07/31/19 08:30 64 160/70 07/31/19 05:53 97.9 18 95 Room Air Laboratory Data Labs 24H Laboratory Tests 2 07/30/19 16:17: Bedside Glucose (Misc Panel) 205H 07/30/19 20:36: Bedside Glucose (Misc Panel) 189H 07/31/19 05:41: Bedside Glucose (Misc Panel) 174H 07/31/19 11:37: Bedside Glucose (Misc Panel) 109 Current Medications Current Medications Current Medications Medications (Trade) Dose Ordered Sig/Lisa Route PRN Reason Start Time Stop Time Status Last Admin Dose Admin Acetaminophen (Tylenol Tab) 1,000 mg TID PO 07/25/19 16:00 3/26/20 08:31 Aspirin (Ecotrin) 81 mg DAILY PO 07/26/19 09:00 07/31/19 08:30 Bisacodyl (Dulcolax Suppository) 10 mg DAILYPRN PRN [place] CONSTIPATION 07/25/19 12:30 Dextrose (Dextrose 50%) 25 ml ASDIRECTED PRN IV SEE LABEL COMMENTS 07/25/19 12:30 Docusate Sodium (Colace) 100 mg BID PO 07/25/19 21:00 07/31/19 08:30 Enoxaparin Sodium (Lovenox) 40 mg DAILY SC 07/26/19 09:00 07/31/19 08:31 Fish Oil ([place]-3 (1000mg)) 1 cap BID PO 07/25/19 21:00 07/31/19 08:31 Gemfibrozil (Lopid) 600 mg BID@0730,1730 PO 07/25/19 17:30 07/31/19 06:57 Glipizide (Glucotrol) 5 mg BID@0730,1730 PO 07/25/19 17:30 07/31/19 06:57 Glucagon (Glucagon) 1 mg ASDIRECTED PRN SC SEE LABEL COMMENTS 07/25/19 12:30 Glucose (Glucose) 16 GM ASDIRECTED PRN PO SEE LABEL COMMENTS 07/25/19 12:30 Ibuprofen (Advil) 400 mg Q6HP PRN PO PAIN 07/27/19 11:15 07/31/19 06:57 Insulin Detemir (Levemir Insulin) 25 units QHS SC 07/25/19 21:00 07/30/19 21:24 Insulin Human Lispro (HumaLOG INSULIN) SEE PROTOCOL TABLE AC SC 07/25/19 17:30 07/31/19 08:31 Insulin Human Lispro (HumaLOG INSULIN) SEE PROTOCOL TABLE QHS SC 07/25/19 21:00 07/27/19 20:04 Metoprolol Tartrate (Lopressor) 12.5 mg DAILY PO 07/26/19 09:00 07/31/19 10:46 DC 07/31/19 08:30 Metoprolol Tartrate (Lopressor) 25 mg DAILY PO 08/01/19 09:00 Omeprazole (PriLOSEC) 40 mg DAILY PO 07/26/19 09:00 07/31/19 08:31 Senna (Senokot) 1 tab QHS PO 07/25/19 21:00 07/30/19 21:25 Spironolactone (Aldactone) 25 mg QAM PO 07/26/19 09:00 07/31/19 08:30 TONY WU MD Jul 31, 2019 14:02
[2019-07-31 20:00] VITALS: BP 144/67
[2019-07-31] MEDS: SENNA 8.6 MG TAB (SENOKOT) PO SCH (20:24)
[2019-07-31] MEDS: LEVEMIR (INSULIN DETEMIR) 1 UNITS/0.01ML SC SCH (20:25)
[2019-08-01 06:21] VITALS: BP 132/73
[2019-08-01] MEDS: HumaLOG INSULIN (NovoLOG) PER UNIT SC SCH ×4 (06:58→20:09)
[2019-08-01 07:25] LABS: HEMATOCRIT 37.5 % (42.0-52.0); HEMOGLOBIN 12.8 g/dl (13.5-17.5); MEAN CORPUSCULAR HEMOGLOBIN 30.6 pg (27.0-33.0); MEAN CORPUSCULAR HGB CONC 34.1 g/dl (32.0-36.5); MEAN CORPUSCULAR VOLUME 89.7 fl (80.0-96.0); PLATELET COUNT, AUTOMATED 317 10^3/uL (150-450); RED BLOOD COUNT 4.18 10^6/uL (4.30-6.10); WHITE BLOOD COUNT 4.2 10^3/uL (4.0-10.0)
[2019-08-01 07:49] LABS: BLOOD UREA NITROGEN 22 MG/DL (7-18); CALCIUM LEVEL 9.9 MG/DL (8.8-10.2); CARBON DIOXIDE LEVEL 25 MEQ/L (21-32); CHLORIDE LEVEL 104 MEQ/L (98-107); CREATININE FOR GFR 0.99 MG/DL (0.70-1.30); GLOMERULAR FILTRATION RATE > 60.0 (>35); GLUCOSE, FASTING 162 MG/DL (70-100); SODIUM LEVEL 135 MEQ/L (136-145)
[2019-08-01] MEDS: ENOXAPARIN 40 MG/0.4 ML SYRINGE (J1650) SC SCH (08:15)
[2019-08-01] MEDS: OMEPRAZOLE 20 MG CAP PO SCH (08:15)
[2019-08-01] MEDS: SPIRONOLACTONE 25 MG TAB PO SCH (08:16)
[2019-08-01] MEDS: METOPROLOL TART 25 MG TABLET PO SCH (08:16)
[2019-08-01] MEDS: ASPIRIN 81 MG ENTERIC TAB PO SCH (08:16)
[2019-08-01] MEDS: gemfibroziL 600 MG TAB PO SCH ×2 (08:16→17:17)
[2019-08-01] MEDS: ACETAMINOPHEN 500 MG TAB PO SCH ×3 (08:16→20:09)
[2019-08-01] MEDS: DOCUSATE SODIUM 100 MG CAP PO SCH ×2 (08:16→20:09)
[2019-08-01] MEDS: REMEDY PHYTOPLEX Z-GUARD PASTE 113GM TUBE (FROM STOREROOM PRODUCT) TOP SCH ×3 (08:16→20:10)
[2019-08-01] MEDS: glipiZIDE (GLUCOTROL) 5 MG TAB PO SCH ×2 (08:16→17:17)
[2019-08-01] MEDS: OMEGA-3 1000MG CAPSULE PO SCH ×2 (08:16→20:09)
[2019-08-01 14:00] VITALS: BP 131/58
--- NOTE | 2019-08-01 16:51 | IPNPDOC ---
PM&R Progress Note DATE OF SERVICE: Aug 01, 2019 [employer] Progress Note Subjective: Patient reporting his right arm feels stronger overall and that therapy is going well. REVIEW OF SYSTEMS: The following is a completed review of systems and has been reviewed. Review of systems otherwise unremarkable. PAIN: Patient self reports no pain EYES: No recent vision changes EARS, NOSE, & THROAT: No throat pain, or dysphagia, or rhinorrhea CARDIOVASCULAR: Denies chest pain or palpitations PULMONARY: Denies shortness of breath GASTROINTESTINAL: Denies constipation/diarrhea GENITOURINARY: denies retention/incontinence/dysuria MUSCULOSKELETAL: right sided weakness and left ankle fracture NEUROLOGICAL:RUE and RLE paresis HEMATOLOGICAL: denies easy bruising SKIN: denies rash PSYCHIATRIC: Unremarkable All other review of systems found to be negative. PHYSICAL EXAMINATION: VITAL SIGNS: Please see below. GENERAL: Pleasant and cooperative. No acute distress. HEENT: PERRL. Extraocular movements intact. Clear conjunctiva CARDIOVASCULAR: Regular rate and rhythm. No murmurs, rubs, or gallops LUNGS: Clear to auscultation bilaterally. No wheezes. No rhonchi ABDOMEN: Soft, nontender, nondistended. Positive bowel sounds. Normal active bowel sounds NEUROLOGICAL: Alert and oriented times three. Cranial nerves II through XII grossly intact. Sensation grossly intact, however diminished to light touch and pinprick on right side (-) Hoffmans bilat (-) babinski on right, no clonus Left LE casted, able to wiggle toes EXTREMITIES: 5\5 strength left upper extremities. 3+ RUE, 4-\5 strength right lower extremity. 5/5 strength in left hip flexion and knee extension, able to wiggle toes (exam limited due to cast) +bilat foot edema with left D1 toe amputation healed (improving) SKIN: intact ASSESSMENT:78-year-old M with past medical history of recent left ankle fracture who presents status post right sided paresis in setting of cervical myleopathy PLAN: 1. Rehab- PT/OT advance gait and ADL training maintaining NWB to LLE- strengthen /stretch/maintain ROM all 4 limbs 2. Ortho- s/p left ankle fracture with ORIF- ortho consulted and recs appreciated, patient to c/u NWB for now, caste planned to be removed by Anshu Oneil Sunday with CAM boot fitting inhouse, WB status per ortho once CAM boot placed 3. Neuro: cervical myelopathy with RUE>RLE weakness, patient declining surgical decompression, no bowel/bladder symptoms, will monitor for further decline 4. CArdiac: hx of diastolic CHF- daily weights, aldactone, fluid restrict -CAD s/p CABG c/u ASA and increased dose of metoprolol ( BPs better)- medicine consulted to assist in overall management -HLD- c/u Lopid 5. Resp: encourage incentive spirometry 6. Endo: pmh DM c/u insulin and glipizide, ISS ordered as well- adjust prn, improving FS overall -c/u consistent carb to low sodium diet 7. : monitor PVRs 8. DVT ppx: lovenox and TEDs to RLE 9. GI ppx: prilosec 10. PAin: c/u tyelneol and ibuprofen prn 11. DIspo: 08-05-19 to home cast to be removed on site 07-08-19 Allergies Coded Allergies: Penicillins (Verified Allergy, Mild, RASH, 06/24/19) Avrujei-Obo-Waw Reductase Inhibitor (Verified Allergy, Unknown, MYALGIA, 07/21/19) cephalexin (Verified Allergy, Unknown, RASH, 07/21/19) clindamycin (Verified Allergy, Unknown, HIVES, 07/21/19) cyclobenzaprine (Verified Allergy, Unknown, HIVES, 07/21/19) ezetimibe (Verified Allergy, Unknown, BONE PAIN, 07/21/19) atorvastatin (Verified Adverse Reaction, Intermediate, LEG PAIN, 06/24/19) Vital Signs Vital Signs Date Time Temp Pulse Resp B/P (MAP) Pulse Ox O2 Delivery O2 Flow Rate FiO2 08/01/19 14:00 97.4 59 18 131/58 (82) 99 Room Air Laboratory Data CBC/BMP Laboratory Tests 08/01/19 06:59 Labs 24H Laboratory Tests 2 07/31/19 20:13: Bedside Glucose (Misc Panel) 192H 08/01/19 06:08: Bedside Glucose (Misc Panel) 169H 08/01/19 06:59: Nucleated Red Blood Cells % (auto) 0.0, Anion Gap 6L, Glomerular Filtration Rate > 60.0, Calcium Level 9.9 08/01/19 12:18: Bedside Glucose (Misc Panel) 154H Current Medications Current Medications Current Medications Medications (Trade) Dose Ordered Sig/Lisa Route PRN Reason Start Time Stop Time Status Last Admin Dose Admin Acetaminophen (Tylenol Tab) 1,000 mg TID PO 07/25/19 16:00 08/01/19 08:16 Aspirin (Ecotrin) 81 mg DAILY PO 07/26/19 09:00 08/01/19 08:16 Bisacodyl (Dulcolax Suppository) 10 mg DAILYPRN PRN [place] CONSTIPATION 07/25/19 12:30 Dextrose (Dextrose 50%) 25 ml ASDIRECTED PRN IV SEE LABEL COMMENTS 07/25/19 12:30 Docusate Sodium (Colace) 100 mg BID PO 07/25/19 21:00 08/01/19 08:16 Enoxaparin Sodium (Lovenox) 40 mg DAILY SC 07/26/19 09:00 08/01/19 08:15 Fish Oil ([place]-3 (1000mg)) 1 cap BID PO 07/25/19 21:00 08/01/19 08:16 Gemfibrozil (Lopid) 600 mg BID@0730,1730 PO 07/25/19 17:30 08/01/19 08:16 Glipizide (Glucotrol) 5 mg BID@0730,1730 PO 07/25/19 17:30 08/01/19 08:16 Glucagon (Glucagon) 1 mg ASDIRECTED PRN SC SEE LABEL COMMENTS 07/25/19 12:30 Glucose (Glucose) 16 GM ASDIRECTED PRN PO SEE LABEL COMMENTS 07/25/19 12:30 Ibuprofen (Advil) 400 mg Q6HP PRN PO PAIN 07/27/19 11:15 07/31/19 20:26 Insulin Detemir (Levemir Insulin) 25 units QHS SC 07/25/19 21:00 07/31/19 20:25 Insulin Human Lispro (HumaLOG INSULIN) SEE PROTOCOL TABLE AC SC 07/25/19 17:30 08/01/19 12:26 Insulin Human Lispro (HumaLOG INSULIN) SEE PROTOCOL TABLE QHS SC 07/25/19 21:00 07/27/19 20:04 Metoprolol Tartrate (Lopressor) 12.5 mg DAILY PO 07/26/19 09:00 07/31/19 10:46 DC 07/31/19 08:30 Metoprolol Tartrate (Lopressor) 25 mg DAILY PO 08/01/19 09:00 08/01/19 08:16 Omeprazole (PriLOSEC) 40 mg DAILY PO 07/26/19 09:00 08/01/19 08:15 Senna (Senokot) 1 tab QHS PO 07/25/19 21:00 07/31/19 20:24 Spironolactone (Aldactone) 25 mg QAM PO 07/26/19 09:00 08/01/19 08:16 TONY WU MD Aug 01, 2019 16:51
[2019-08-01 20:00] VITALS: BP 148/72
[2019-08-01] MEDS: SENNA 8.6 MG TAB (SENOKOT) PO SCH (20:09)
[2019-08-01] MEDS: IBUPROFEN 400 MG TAB PO PRN (20:09)
[2019-08-01] MEDS: LEVEMIR (INSULIN DETEMIR) 1 UNITS/0.01ML SC SCH (20:10)
[2019-08-02 06:00] VITALS: BP 135/66
[2019-08-02] MEDS: HumaLOG INSULIN (NovoLOG) PER UNIT SC SCH ×4 (08:15→20:06)
[2019-08-02] MEDS: OMEPRAZOLE 20 MG CAP PO SCH (08:43)
[2019-08-02] MEDS: ENOXAPARIN 40 MG/0.4 ML SYRINGE (J1650) SC SCH (08:43)
[2019-08-02] MEDS: DOCUSATE SODIUM 100 MG CAP PO SCH ×2 (08:43→20:17)
[2019-08-02] MEDS: gemfibroziL 600 MG TAB PO SCH ×2 (08:43→17:05)
[2019-08-02] MEDS: ACETAMINOPHEN 500 MG TAB PO SCH ×3 (08:44→20:17)
[2019-08-02] MEDS: METOPROLOL TART 25 MG TABLET PO SCH (08:44)
[2019-08-02] MEDS: ASPIRIN 81 MG ENTERIC TAB PO SCH (08:44)
[2019-08-02] MEDS: glipiZIDE (GLUCOTROL) 5 MG TAB PO SCH ×2 (08:45→17:04)
[2019-08-02] MEDS: SPIRONOLACTONE 25 MG TAB PO SCH (08:45)
[2019-08-02] MEDS: REMEDY PHYTOPLEX Z-GUARD PASTE 113GM TUBE (FROM STOREROOM PRODUCT) TOP SCH ×3 (08:47→20:18)
[2019-08-02] MEDS: OMEGA-3 1000MG CAPSULE PO SCH ×2 (08:47→20:17)
--- NOTE | 2019-08-02 09:54 | REP ---
Clinical: Fracture followup. Technique: AP and lateral views of the left ankle. Findings: Evaluation is limited by overlying cast material. A nondisplaced fracture of the distal fibula is suggested. Mild overlying soft tissue swelling noted. Ankle mortise is grossly intact. Impression: Nondisplaced fracture of the distal fibula suggested with mild soft tissue swelling. Electronically Signed by Paolo Sky MD 08/02/2019 09:45 A
[2019-08-02 14:00] VITALS: BP 149/71
[2019-08-02 20:00] VITALS: BP 158/70
[2019-08-02] MEDS: LEVEMIR (INSULIN DETEMIR) 1 UNITS/0.01ML SC SCH (20:17)
[2019-08-02] MEDS: IBUPROFEN 400 MG TAB PO PRN (20:17)
[2019-08-02] MEDS: SENNA 8.6 MG TAB (SENOKOT) PO SCH (20:17)
[2019-08-03] MEDS: IBUPROFEN 400 MG TAB PO PRN (06:21)
[2019-08-03 06:48] LABS: HEMATOCRIT 39.1 % (42.0-52.0); HEMOGLOBIN 13.7 g/dl (13.5-17.5); MEAN CORPUSCULAR HEMOGLOBIN 31.1 pg (27.0-33.0); MEAN CORPUSCULAR VOLUME 88.9 fl (80.0-96.0); PLATELET COUNT, AUTOMATED 351 10^3/uL (150-450); WHITE BLOOD COUNT 5.5 10^3/uL (4.0-10.0)
[2019-08-03] MEDS: HumaLOG INSULIN (NovoLOG) PER UNIT SC SCH ×4 (07:23→21:41)
[2019-08-03] MEDS: gemfibroziL 600 MG TAB PO SCH ×2 (07:23→17:21)
[2019-08-03] MEDS: glipiZIDE (GLUCOTROL) 5 MG TAB PO SCH ×2 (07:26→17:21)
[2019-08-03] MEDS: OMEPRAZOLE 20 MG CAP PO SCH (07:27)
[2019-08-03] MEDS: ENOXAPARIN 40 MG/0.4 ML SYRINGE (J1650) SC SCH (07:27)
[2019-08-03] MEDS: ASPIRIN 81 MG ENTERIC TAB PO SCH (07:28)
[2019-08-03] MEDS: METOPROLOL TART 25 MG TABLET PO SCH (07:28)
[2019-08-03] MEDS: SPIRONOLACTONE 25 MG TAB PO SCH (07:29)
[2019-08-03] MEDS: ACETAMINOPHEN 500 MG TAB PO SCH ×3 (07:29→21:41)
[2019-08-03] MEDS: OMEGA-3 1000MG CAPSULE PO SCH ×2 (07:29→21:41)
[2019-08-03] MEDS: DOCUSATE SODIUM 100 MG CAP PO SCH ×2 (07:29→21:44)
[2019-08-03] MEDS: REMEDY PHYTOPLEX Z-GUARD PASTE 113GM TUBE (FROM STOREROOM PRODUCT) TOP SCH ×4 (07:31→21:00)
[2019-08-03 14:00] VITALS: BP_SYST 142; BP_SYST 149; BP_DIAS 65; BP_DIAS 76
[2019-08-03 19:37] VITALS: BP 150/76
[2019-08-03] MEDS: SENNA 8.6 MG TAB (SENOKOT) PO SCH (21:41)
[2019-08-03] MEDS: LEVEMIR (INSULIN DETEMIR) 1 UNITS/0.01ML SC SCH (21:42)
[2019-08-04 06:00] VITALS: BP 168/81
[2019-08-04 06:44] LABS: BASO % 0.5 % (0.0-1.0); EOS # 0.1 10^3/uL (0.0-0.5); EOS % 2.5 % (0.0-3.0); HEMATOCRIT 39.7 % (42.0-52.0); HEMOGLOBIN 13.5 g/dl (13.5-17.5); LYMPH # 1.6 10^3/uL (1.5-5.0); LYMPH % 27.5 % (24.0-44.0); MEAN CORPUSCULAR HEMOGLOBIN 30.6 pg (27.0-33.0); MONO # 0.5 10^3/uL (0.0-0.8); MONO % 7.9 % (0.0-5.0); NEUTROPHILS # 3.5 10^3/uL (1.5-8.5); NEUTROPHILS % 61.2 % (36.0-66.0); PLATELET COUNT, AUTOMATED 349 10^3/uL (150-450); RED BLOOD COUNT 4.41 10^6/uL (4.30-6.10); WHITE BLOOD COUNT 5.7 10^3/uL (4.0-10.0)
[2019-08-04 07:02] LABS: BLOOD UREA NITROGEN 18 MG/DL (7-18); CARBON DIOXIDE LEVEL 24 MEQ/L (21-32); CHLORIDE LEVEL 103 MEQ/L (98-107); CREATININE FOR GFR 1.04 MG/DL (0.70-1.30); GLOMERULAR FILTRATION RATE > 60.0 (>35); GLUCOSE, FASTING 194 MG/DL (70-100); POTASSIUM SERUM 4.3 MEQ/L (3.5-5.1); SODIUM LEVEL 133 MEQ/L (136-145)
[2019-08-04 07:03] VITALS: BP 146/62
[2019-08-04] MEDS: SPIRONOLACTONE 25 MG TAB PO SCH (08:06)
[2019-08-04] MEDS: OMEGA-3 1000MG CAPSULE PO SCH ×2 (08:06→21:43)
[2019-08-04] MEDS: ACETAMINOPHEN 500 MG TAB PO SCH ×3 (08:06→21:45)
[2019-08-04] MEDS: DOCUSATE SODIUM 100 MG CAP PO SCH ×2 (08:06→21:44)
[2019-08-04] MEDS: glipiZIDE (GLUCOTROL) 5 MG TAB PO SCH ×2 (08:06→17:33)
[2019-08-04] MEDS: ASPIRIN 81 MG ENTERIC TAB PO SCH (08:06)
[2019-08-04] MEDS: OMEPRAZOLE 20 MG CAP PO SCH (08:06)
[2019-08-04] MEDS: METOPROLOL TART 25 MG TABLET PO SCH (08:06)
[2019-08-04] MEDS: ENOXAPARIN 40 MG/0.4 ML SYRINGE (J1650) SC SCH (08:06)
[2019-08-04] MEDS: gemfibroziL 600 MG TAB PO SCH ×2 (08:06→17:33)
[2019-08-04] MEDS: HumaLOG INSULIN (NovoLOG) PER UNIT SC SCH ×4 (08:07→21:00)
[2019-08-04] MEDS: REMEDY PHYTOPLEX Z-GUARD PASTE 113GM TUBE (FROM STOREROOM PRODUCT) TOP SCH ×3 (08:07→21:00)
[2019-08-04] MEDS ORDERED: AMLO10TA5 PO (11:15)
[2019-08-04] MEDS ORDERED: SPIR-10 PO (11:15)
[2019-08-04] MEDS ORDERED: GLIP5TAB8 PO ×2 (11:15)
[2019-08-04] MEDS ORDERED: ASPI81TAEC PO (11:15)
[2019-08-04] MEDS ORDERED: METO1TAB87 PO (11:15)
[2019-08-04] MEDS ORDERED: GEMF600T5 PO (11:15)
[2019-08-04 14:00] VITALS: BP 130/61
--- NOTE | 2019-08-04 14:11 | IPNPDOC ---
PM&R Progress Note DATE OF SERVICE: Aug 04, 2019 Lead Mechanical Engineer Progress Note Subjective: Patient reporting he feels no pain in his left ankle since the removal of his cast and is able to walk with some instability. REVIEW OF SYSTEMS: The following is a completed review of systems and has been reviewed. Review of systems otherwise unremarkable. PAIN: Patient self reports no pain EYES: No recent vision changes EARS, NOSE, & THROAT: No throat pain, or dysphagia, or rhinorrhea CARDIOVASCULAR: Denies chest pain or palpitations PULMONARY: Denies shortness of breath GASTROINTESTINAL: Denies constipation/diarrhea GENITOURINARY: denies retention/incontinence/dysuria MUSCULOSKELETAL: right sided weakness and left ankle fracture NEUROLOGICAL:RUE and RLE paresis HEMATOLOGICAL: denies easy bruising SKIN: denies rash PSYCHIATRIC: Unremarkable All other review of systems found to be negative. PHYSICAL EXAMINATION: VITAL SIGNS: Please see below. GENERAL: Pleasant and cooperative. No acute distress. HEENT: PERRL. Extraocular movements intact. Clear conjunctiva CARDIOVASCULAR: Regular rate and rhythm. No murmurs, rubs, or gallops LUNGS: Clear to auscultation bilaterally. No wheezes. No rhonchi ABDOMEN: Soft, nontender, nondistended. Positive bowel sounds. Normal active bowel sounds NEUROLOGICAL: Alert and oriented times three. Cranial nerves II through XII grossly intact. Sensation grossly intact, however diminished to light touch and pinprick on right side (-) Hoffmans bilat (-) babinski on right, no clonus Left LE casted, able to wiggle toes EXTREMITIES: 5\5 strength left upper extremities. 3+ RUE, 4-\5 strength right lower extremity. 5/5 strength in left hip flexion and knee extension, able to wiggle toes (exam limited due to cast) +bilat foot edema with left D1 toe amputation healed (improving) SKIN: intact ASSESSMENT:78-year-old M with past medical history of recent left ankle fracture who presents status post right sided paresis in setting of cervical myleopathy PLAN: 1. Rehab- PT/OT advance gait and ADL training maintaining NWB to LLE- strengthen/stretch/maintain ROM all 4 limbs 2. Ortho- s/p left ankle fracture with ORIF- ortho consulted and recs appreciated, patient to c/u NWB for now, caste planned to be removed by Anshu Oneil Sunday with CAM boot fitting inhouse, WB status per ortho once CAM boot placed 3. Neuro: cervical myelopathy with RUE>RLE weakness, patient declining surgical decompression, no bowel/bladder symptoms, will monitor for further decline 4. CArdiac: hx of diastolic CHF- daily weights, aldactone, fluid restrict -CAD s/p CABG c/u ASA and increased dose of metoprolol ( BPs better)- medicine consulted to assist in overall management -HLD- c/u Lopid 5. Resp: encourage incentive spirometry 6. Endo: pmh DM c/u insulin and glipizide, ISS ordered as well- adjust prn, improving FS overall -c/u consistent carb to low sodium diet 7. : monitor PVRs 8. DVT ppx: lovenox and TEDs to RLE 9. GI ppx: prilosec 10. PAin: c/u tyelneol and ibuprofen prn 11. DIspo: 08-05-19 to home, cast removed today, will still need wheelchair Allergies Coded Allergies: Penicillins (Verified Allergy, Mild, RASH, 06/24/19) Yuuuhtw-Zun-Rtc Reductase Inhibitor (Verified Allergy, Unknown, MYALGIA, 07/21/19) cephalexin (Verified Allergy, Unknown, RASH, 07/21/19) clindamycin (Verified Allergy, Unknown, HIVES, 07/21/19) cyclobenzaprine (Verified Allergy, Unknown, HIVES, 07/21/19) ezetimibe (Verified Allergy, Unknown, BONE PAIN, 07/21/19) atorvastatin (Verified Adverse Reaction, Intermediate, LEG PAIN, 06/24/19) Vital Signs Vital Signs Date Time Temp Pulse Resp B/P (MAP) Pulse Ox O2 Delivery O2 Flow Rate FiO2 08/04/19 08:06 69 146/62 08/04/19 06:00 98.2 17 94 Room Air Laboratory Data CBC/BMP Laboratory Tests 08/04/19 06:23 Labs 24H Laboratory Tests 2 08/03/19 16:42: Bedside Glucose (Misc Panel) 218H 08/03/19 19:59: Bedside Glucose (Misc Panel) 295H 08/04/19 06:23: Immature Granulocyte % (Auto) 0.4, Neutrophils (%) (Auto) 61.2, Lymphocytes (%) (Auto) 27.5, Monocytes (%) (Auto) 7.9H, Eosinophils (%) (Auto) 2.5, Basophils (%) (Auto) 0.5, Neutrophils # (Auto) 3.5, Lymphocytes # (Auto) 1.6, Monocytes # (Auto) 0.5, Eosinophils # (Auto) 0.1, Basophils # (Auto) 0.0, Nucleated Red Blood Cells % (auto) 0.0, Anion Gap 6L, Glomerular Filtration Rate > 60.0, Calcium Level 10.0 08/04/19 11:51: Bedside Glucose (Misc Panel) 156H Current Medications Current Medications Current Medications Medications (Trade) Dose Ordered Sig/Lisa Route PRN Reason Start Time Stop Time Status Last Admin Dose Admin Acetaminophen (Tylenol Tab) 1,000 mg TID PO 07/25/19 16:00 08/04/19 08:06 Aspirin (Ecotrin) 81 mg DAILY PO 07/26/19 09:00 08/04/19 08:06 Bisacodyl (Dulcolax Suppository) [address] CONSTIPATION 07/25/19 12:30 Dextrose (Dextrose 50%) 25 ml ASDIRECTED PRN IV SEE LABEL COMMENTS 07/25/19 12:30 Docusate Sodium (Colace) 100 mg BID PO 07/25/19 21:00 08/04/19 08:06 Enoxaparin Sodium (Lovenox) 40 mg DAILY SC 07/26/19 09:00 08/04/19 08:06 Fish Oil (Summit-3 (1000mg)) 1 cap BID PO 07/25/19 21:00 08/04/19 08:06 Gemfibrozil (Lopid) 600 mg BID@0730,1730 PO 07/25/19 17:30 08/04/19 08:06 Glipizide (Glucotrol) 5 mg BID@0730,1730 PO 07/25/19 17:30 08/04/19 08:06 Glucagon (Glucagon) 1 mg ASDIRECTED PRN SC SEE LABEL COMMENTS 07/25/19 12:30 Glucose (Glucose) 16 GM ASDIRECTED PRN PO SEE LABEL COMMENTS 07/25/19 12:30 Ibuprofen (Advil) 400 mg Q6HP PRN PO PAIN 07/27/19 11:15 08/03/19 06:21 Insulin Detemir (Levemir Insulin) 25 units QHS SC 07/25/19 21:00 08/03/19 21:42 Insulin Human Lispro (HumaLOG INSULIN) SEE PROTOCOL TABLE AC SC 07/25/19 17:30 08/04/19 12:19 Insulin Human Lispro (HumaLOG INSULIN) SEE PROTOCOL TABLE QHS SC 07/25/19 21:00 08/03/19 21:41 Metoprolol Tartrate (Lopressor) 12.5 mg DAILY PO 07/26/19 09:00 07/31/19 10:46 DC 07/31/19 08:30 Metoprolol Tartrate (Lopressor) 25 mg DAILY PO 08/01/19 09:00 08/04/19 08:06 Omeprazole (PriLOSEC) 40 mg DAILY PO 07/26/19 09:00 08/04/19 08:06 Senna (Senokot) 1 tab QHS PO 07/25/19 21:00 08/03/19 21:41 Spironolactone (Aldactone) 25 mg QAM PO 07/26/19 09:00 08/04/19 08:06 TONY WU MD Aug 04, 2019 14:11
[2019-08-04 21:00] VITALS: BP 158/71
[2019-08-04] MEDS: SENNA 8.6 MG TAB (SENOKOT) PO SCH (21:44)
[2019-08-04] MEDS: IBUPROFEN 400 MG TAB PO PRN (21:46)
[2019-08-04] MEDS: LEVEMIR (INSULIN DETEMIR) 1 UNITS/0.01ML SC SCH (21:46)
[2019-08-05 05:48] VITALS: BP 130/71
[2019-08-05] MEDS: HumaLOG INSULIN (NovoLOG) PER UNIT SC SCH ×2 (07:02→12:36)
[2019-08-05] MEDS: DOCUSATE SODIUM 100 MG CAP PO SCH (09:00)
[2019-08-05] MEDS: SPIRONOLACTONE 25 MG TAB PO SCH (09:00)
[2019-08-05] MEDS: REMEDY PHYTOPLEX Z-GUARD PASTE 113GM TUBE (FROM STOREROOM PRODUCT) TOP SCH (09:00)
[2019-08-05] MEDS: glipiZIDE (GLUCOTROL) 5 MG TAB PO SCH (09:01)
[2019-08-05] MEDS: ASPIRIN 81 MG ENTERIC TAB PO SCH (09:01)
[2019-08-05] MEDS: gemfibroziL 600 MG TAB PO SCH (09:01)
[2019-08-05] MEDS: ENOXAPARIN 40 MG/0.4 ML SYRINGE (J1650) SC SCH (09:01)
[2019-08-05] MEDS: OMEPRAZOLE 20 MG CAP PO SCH (09:01)
[2019-08-05] MEDS: ACETAMINOPHEN 500 MG TAB PO SCH (09:01)
[2019-08-05] MEDS: OMEGA-3 1000MG CAPSULE PO SCH (09:01)
[2019-08-05 09:02] VITALS: BP 130/71
[2019-08-05] MEDS: METOPROLOL TART 25 MG TABLET PO SCH (09:02)
--- NOTE | 2019-08-05 10:23 | PMRDS ---
DATE OF ADMISSION: 07/25/2019 DATE OF DISCHARGE: CHIEF COMPLAINT/DISCHARGE DIAGNOSIS: Cervical myelopathy. 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 CTH and brain MRI did not show intracranial abnormalities Cervical MRI however did show At C3-4, there is severe central canal stenosis and there is cord compression due to ligamentum flavum hypertrophy, broad-based central disc protrusion. There is cord edema within the substance of the cord about the C3-4 disc consistent with myelomalacia. Central canal stenosis is noted at C4-5 as well. Orthopedics evaluated him and discussed surgical decompression to help alleviate his right arm and leg weakness, however due to his advanced age he declined surgical intervention. He was evaluated by therapy, noted to have impairments in mobility and ADLs below his prior level of function and deemed medically appropriate for discharge to ARU. HOSPITAL COURSE: The patient was admitted and enrolled in a comprehensive physical therapy (PT)/occupational therapy (OT) program. He received 24-hour nursing supervision and weekly team meetings were held to discuss his progress. The patient was maintained on daily weights, fluid restriction and Aldactone in the setting of diastolic congestive heart failure (CHF) and his dosing on metoprolol was increased due to elevated blood pressures with overall improvement. For pain, the patient was maintained on Tylenol and ibuprofen p.r.n. His cast was removed on 08/04/2019 and cam boot was placed and he was made weightbearing as tolerated. Despite new weightbearing restrictions, the patient was unable to ambulate safely with a rolling walker and was deemed medically and functionally stable to return home at a wheelchair level. DISCHARGE MEDICATIONS: As per instructions. FUNCTIONAL HISTORY: On discharge, the patient was contact guard assist for functional transfers due to right knee buckling and in occupational therapy he was modified independent for bathing and upper body dressing, contact guard for lower body dressing, modified for grooming.
--- NOTE | 2019-08-06 00:18 | IPN ---
DATE: 08/04/2019 This is dictation about x-rays which were completed, three views left ankle, on 08/02/2019. Per Dr. Jordan, he felt that x-rays were in adequate alignment and recommended the patient transition to a walker boot. In fact, that has already occurred. He has ordered that the patient can transfer to weightbearing as tolerated with boot. He is to followup with the orthopedic group in 6 weeks' time with updated x-rays of the ankle, three views.
== END 2019-08-05 14:15 | disposition home health service (06) | DRG 552 ==
LOC: M PM&R 16:00
PROVIDERS: ADMIT Physical Medicine & Rehabilitation; ATTEND Physical Medicine & Rehabilitation
DX: M50.01 Cervical disc disorder with myelopathy, high cervical region (principal); I50.32 Chronic diastolic (congestive) heart failure; M48.02 Spinal stenosis, cervical region; I25.10 Atherosclerotic heart disease of native coronary artery without angina pectoris; E11.9 Type 2 diabetes mellitus without complications; Z85.820 Personal history of malignant melanoma of skin; Z85.828 Personal history of other malignant neoplasm of skin; Z95.1 Presence of aortocoronary bypass graft; Z87.891 Personal history of nicotine dependence; Z79.4 Long term (current) use of insulin; Z79.82 Long term (current) use of aspirin; Z79.899 Other long term (current) drug therapy; Z88.0 Allergy status to penicillin; Z88.1 Allergy status to other antibiotic agents; Z88.8 Allergy status to other drugs, medicaments and biological substances; E78.5 Hyperlipidemia, unspecified; R29.6 Repeated falls; S82.452D Displaced comminuted fracture of shaft of left fibula, subsequent encounter for closed fracture with routine healing; W18.30XD Fall on same level, unspecified, subsequent encounter; Y92.9 Unspecified place or not applicable

== ENCOUNTER → 2019-08-11 | Outpatient (REF) | payer MEDICARE ==
[~2019-08-11] MED LIST changes: +ASPI81TAEC PO; +METO1TAB87 PO
[2019-08-11 16:52] LABS: HEMOGLOBIN A1c 8.2 %
[2019-08-11 16:57] LABS: BLOOD UREA NITROGEN 24 MG/DL (7-18); CALCIUM LEVEL 10.3 MG/DL (8.8-10.2); CARBON DIOXIDE LEVEL 22 MEQ/L (21-32); CHLORIDE LEVEL 100 MEQ/L (98-107); CHOLESTEROL LEVEL 239 MG/DL (<200); CHOLESTEROL RISK RATIO 7.709 (<5); CREATININE FOR GFR 1.19 MG/DL (0.70-1.30); GLOMERULAR FILTRATION RATE > 60.0 (>35); GLUCOSE, FASTING 270 MG/DL (70-100); HDL CHOLESTEROL 31 MG/DL (>40); LDL CHOLESTEROL 166 MG/DL (<100); NON-HDL-C 208 MG/DL; POTASSIUM SERUM 4.8 MEQ/L (3.5-5.1); SODIUM LEVEL 132 MEQ/L (136-145); TRIGLYCERIDES LEVEL 208 MG/DL (<150)
== END ==
LOC: M SFHCCLAY 10:39
PROVIDERS: ATTEND Family Medicine
DX: E11.51 Type 2 diabetes mellitus with diabetic peripheral angiopathy without gangrene (principal)
CPT/HCPCS: 80048; 80061; 83036; G0463

== ENCOUNTER → 2019-11-11 | Outpatient (REF) | payer MEDICARE ==
[~2019-11-11] MED LIST changes: -AMLO10TA5 PO; +AMLO1TAB25 PO
[2019-11-12 11:27] LABS: BASO # 0.1 10^3/uL (0.0-0.2); BASO % 0.7 % (0.0-1.0); EOS # 0.1 10^3/uL (0.0-0.5); EOS % 2.1 % (0.0-3.0); HEMATOCRIT 40.9 % (42.0-52.0); HEMOGLOBIN 13.7 g/dl (13.5-17.5); LYMPH # 2.1 10^3/uL (1.5-5.0); LYMPH % 30.7 % (24.0-44.0); MEAN CORPUSCULAR HEMOGLOBIN 30.8 pg (27.0-33.0); MEAN CORPUSCULAR HGB CONC 33.5 g/dl (32.0-36.5); MEAN CORPUSCULAR VOLUME 91.9 fl (80.0-96.0); MONO # 0.5 10^3/uL (0.0-0.8); MONO % 7.8 % (0.0-5.0); NEUTROPHILS # 3.9 10^3/uL (1.5-8.5); NEUTROPHILS % 58.6 % (36.0-66.0); PLATELET COUNT, AUTOMATED 278 10^3/uL (150-450); RED BLOOD COUNT 4.45 10^6/uL (4.30-6.10); WHITE BLOOD COUNT 6.7 10^3/uL (4.0-10.0)
[2019-11-12 11:42] LABS: ALBUMIN 4.1 GM/DL (3.2-5.2); BILIRUBIN,TOTAL 0.2 MG/DL (0.2-1.0); CREATININE FOR GFR 1.31 MG/DL (0.70-1.30); GLOMERULAR FILTRATION RATE 55.9 (>35); POTASSIUM SERUM 4.5 MEQ/L (3.5-5.1)
[2019-11-12 13:11] LABS: HEMOGLOBIN A1c 7.9 %
== END ==
LOC: M SFHCCLAY 14:14
PROVIDERS: ATTEND Family Medicine
DX: E11.51 Type 2 diabetes mellitus with diabetic peripheral angiopathy without gangrene (principal); E11.22 Type 2 diabetes mellitus with diabetic chronic kidney disease; I10 Essential (primary) hypertension
CPT/HCPCS: 80053; 83036; 85025; G0463

== ENCOUNTER → 2020-01-27 | Outpatient (REF) | payer MEDICARE ==
[2020-01-27 12:36] LABS: BLOOD UREA NITROGEN 21 MG/DL (7-18); CREATININE FOR GFR 1.15 MG/DL (0.70-1.30); GLOMERULAR FILTRATION RATE > 60.0 (>35)
== END ==
LOC: M LABDRAWC 11:22
PROVIDERS: ATTEND Psychiatry & Neurology Neurology
DX: I10 Essential (primary) hypertension (principal)

== ENCOUNTER → 2020-02-26 | Outpatient (CLI) | payer MEDICARE ==
--- NOTE | 2020-02-26 12:07 | REP ---
INDICATION: ATH OF MACRINA ARTERIES, CLAUDICATION HECTOR LEGS COMPARISON: 05/21/2019 TECHNIQUE: Real time hernandez scale and Duplex Doppler evaluation of the bilateral lower extremity arterial vasculature using linear high frequency transducer. FINDINGS: Hernandez scale and duplex doppler images demonstrate severe plaquing bilaterally, most significantly in the calf. There diffuse biphasic waveforms in the bilateral lower extremity arterial structures, with monophasic waveforms in the distal anterior posterior tibial arteries. There is stenosis of the right profunda artery proximally 2-1. There is stenosis of the right superficial femoral artery approximately 2-1. There is stenosis of the proximal right anterior tibial artery proximally 4-1. There is stenosis of the left profunda artery approximately 2-1 and the proximal left posterior tibial artery approximately 2-1. There is occlusion of the mid aspect of both the left anterior and posterior tibial arteries and mid right posterior tibial artery with revascularization distally. There is parvus tardus trickle flow at the ankles bilaterally. Peak systolic velocities (cm/sec) Common femoral artery: Right 60; Left 111 Profunda femoris: Right 131; Left 162 SFA (proximal): Right 73; Left 82 SFA (mid): Right 89; Left 73 SFA (distal): Right 233; Left 101 Popliteal artery: Right 69; Left 68 FAMILIA (prox.): Right 162; Left 36 Tibioperoneal trunk: Right 35; Left 58 CO TEACHER (prox.): Right 26; Left 160 CO TEACHER (distal): Right 17; Left 8 FAMILIA (distal): Right 24; Left 20 IMPRESSION: Arterial stenosis as discussed in detail above. <Electronically signed by Ryley Hernandez > 02/26/20 [id number]
== END ==
LOC: M RAD 09:24
PROVIDERS: ATTEND Physician Assistant
DX: I70.213 Atherosclerosis of native arteries of extremities with intermittent claudication, bilateral legs (principal)

== ENCOUNTER → 2020-04-26 | Outpatient (REF) | payer MEDICARE ==
[2020-04-26 16:44] LABS: BASO % 0.6 % (0.0-1.0); EOS # 0.1 10^3/uL (0.0-0.5); EOS % 1.6 % (0.0-3.0); HEMATOCRIT 41.1 % (42.0-52.0); HEMOGLOBIN 13.9 g/dl (13.5-17.5); LYMPH # 2.1 10^3/uL (1.5-5.0); MEAN CORPUSCULAR HEMOGLOBIN 30.7 pg (27.0-33.0); MEAN CORPUSCULAR HGB CONC 33.8 g/dl (32.0-36.5); MEAN CORPUSCULAR VOLUME 90.7 fl (80.0-96.0); MONO # 0.5 10^3/uL (0.0-0.8); MONO % 7.1 % (0.0-5.0); NEUTROPHILS # 3.6 10^3/uL (1.5-8.5); NEUTROPHILS % 56.4 % (36.0-66.0); PLATELET COUNT, AUTOMATED 283 10^3/uL (150-450); RED BLOOD COUNT 4.53 10^6/uL (4.30-6.10); WHITE BLOOD COUNT 6.3 10^3/uL (4.0-10.0)
[2020-04-26 16:48] LABS: HEMOGLOBIN A1c 7.5 %
[2020-04-26 17:04] LABS: ALBUMIN 4.2 GM/DL (3.2-5.2); ALT/SGPT 35 U/L (12-78); BILIRUBIN,TOTAL 0.3 MG/DL (0.2-1.0); BLOOD UREA NITROGEN 18 MG/DL (7-18); CALCIUM LEVEL 10.1 MG/DL (8.8-10.2); CARBON DIOXIDE LEVEL 29 MEQ/L (21-32); CHLORIDE LEVEL 100 MEQ/L (98-107); CREATININE FOR GFR 1.22 MG/DL (0.70-1.30); GLOMERULAR FILTRATION RATE > 60.0 (>35); GLUCOSE, FASTING 304 MG/DL (70-100); POTASSIUM SERUM 4.4 MEQ/L (3.5-5.1); SODIUM LEVEL 136 MEQ/L (136-145); TOTAL PROTEIN 7.6 GM/DL (6.4-8.2)
== END ==
LOC: M SFHCCLAY 14:11
PROVIDERS: ATTEND Family Medicine
DX: E11.51 Type 2 diabetes mellitus with diabetic peripheral angiopathy without gangrene (principal); I10 Essential (primary) hypertension
CPT/HCPCS: 80053; 83036; 85025; G0463

== ENCOUNTER → 2020-06-22 | Outpatient (REF) | payer MEDICARE ==
[~2020-06-22] MED LIST changes: +ASPI-569 PO; -ASPI81TAEC PO
[2020-06-23 12:18] LABS: BASO # 0.1 10^3/uL (0.0-0.2); BASO % 0.9 % (0.0-1.0); EOS # 0.1 10^3/uL (0.0-0.5); HEMATOCRIT 41.2 % (42.0-52.0); HEMOGLOBIN 13.8 g/dl (13.5-17.5); LYMPH # 1.8 10^3/uL (1.5-5.0); LYMPH % 30.2 % (24.0-44.0); MEAN CORPUSCULAR HEMOGLOBIN 30.2 pg (27.0-33.0); MEAN CORPUSCULAR HGB CONC 33.5 g/dl (32.0-36.5); MEAN CORPUSCULAR VOLUME 90.2 fl (80.0-96.0); MONO # 0.5 10^3/uL (0.0-0.8); MONO % 8.1 % (2.0-8.0); NEUTROPHILS # 3.4 10^3/uL (1.5-8.5); NEUTROPHILS % 59.1 % (36.0-66.0); PLATELET COUNT, AUTOMATED 261 10^3/uL (150-450); RED BLOOD COUNT 4.57 10^6/uL (4.30-6.10); WHITE BLOOD COUNT 5.8 10^3/uL (4.0-10.0)
[2020-06-23 12:53] LABS: ALBUMIN 4.5 GM/DL (3.2-5.2); ALT/SGPT 46 U/L (12-78); BILIRUBIN,TOTAL 0.2 MG/DL (0.2-1.0); BLOOD UREA NITROGEN 20 MG/DL (7-18); CALCIUM LEVEL 10.4 MG/DL (8.8-10.2); CARBON DIOXIDE LEVEL 29 MEQ/L (21-32); CHLORIDE LEVEL 100 MEQ/L (98-107); CREATININE FOR GFR 1.14 MG/DL (0.70-1.30); GLOMERULAR FILTRATION RATE > 60.0 (>35); GLUCOSE, FASTING 299 MG/DL (70-100); POTASSIUM SERUM 4.9 MEQ/L (3.5-5.1); SODIUM LEVEL 135 MEQ/L (136-145); TOTAL PROTEIN 8.2 GM/DL (6.4-8.2)
[2020-06-23 13:21] LABS: HEMOGLOBIN A1c 7.4 %
== END ==
LOC: M SFHCCLAY 16:13
PROVIDERS: ATTEND Family Medicine
DX: E11.51 Type 2 diabetes mellitus with diabetic peripheral angiopathy without gangrene (principal); I10 Essential (primary) hypertension; E78.5 Hyperlipidemia, unspecified
CPT/HCPCS: 80053; 83036; 85025; G0463

== ENCOUNTER → 2020-07-16 | Outpatient (CLI) | payer MEDICARE ==
[2020-07-16 11:21] LABS: CALCIUM LEVEL 10.1 MG/DL (8.8-10.2); CREATININE FOR GFR 1.3 MG/DL (0.70-1.30); GLOMERULAR FILTRATION RATE 56.4 (>35); POTASSIUM SERUM 4.6 MEQ/L (3.5-5.1)
== END ==
LOC: M PLALAB 09:14
PROVIDERS: ATTEND Orthopaedic Surgery
DX: Z01.812 Encounter for preprocedural laboratory examination (principal)

== ENCOUNTER → 2020-12-31 | Outpatient (REF) | payer MEDICARE ==
[2020-12-31 16:24] LABS: BLOOD UREA NITROGEN 18 MG/DL (7-18); CARBON DIOXIDE LEVEL 27 MEQ/L (21-32); CHLORIDE LEVEL 103 MEQ/L (98-107); CREATININE FOR GFR 1.13 MG/DL (0.70-1.30); GLOMERULAR FILTRATION RATE > 60.0 (>35); GLUCOSE, FASTING 313 MG/DL (70-100); POTASSIUM SERUM 4.3 MEQ/L (3.5-5.1); SODIUM LEVEL 136 MEQ/L (136-145)
[2020-12-31 16:25] LABS: ALBUMIN 3.9 GM/DL (3.2-5.2); ALT/SGPT 30 U/L (12-78); BILIRUBIN,TOTAL 0.4 MG/DL (0.2-1.0); CALCIUM LEVEL 9.7 MG/DL (8.8-10.2); CHOLESTEROL LEVEL 254 MG/DL (<200); CHOLESTEROL RISK RATIO 8.466 (<5); HDL CHOLESTEROL 30 MG/DL (>40); LDL CHOLESTEROL 164 MG/DL (<100); NON-HDL-C 224 MG/DL; TOTAL PROTEIN 7.9 GM/DL (6.4-8.2); TRIGLYCERIDES LEVEL 301 MG/DL (<150)
[2020-12-31 19:08] LABS: HEMOGLOBIN A1c 8.1 %
== END ==
LOC: M SFHCCLAY 11:24
PROVIDERS: ATTEND Family Medicine
DX: E11.22 Type 2 diabetes mellitus with diabetic chronic kidney disease (principal); C44.90 Unspecified malignant neoplasm of skin, unspecified
CPT/HCPCS: 80053; 80061; 83036; G0463

== ENCOUNTER → 2021-01-27 | Outpatient (CLI) | payer MEDICARE ==
--- NOTE | 2021-01-27 12:32 | REP ---
INDICATION: CLAUDICATION. COMPARISON: February 26, 2020. TECHNIQUE: Bilateral lower extremity arterial Doppler ultrasound. FINDINGS: Ankle brachial indices are decreased bilaterally measured at 0.64 on the right and 0.57 on the left. Decreased since prior study. Extensive heavily calcified plaquing is seen in the lower extremity arterial tree bilaterally. In the right lower extremity there is a 2-1 velocity ratio stenosis in the distal superficial femoral. The right anterior tibial artery is occluded at the mid calf level with distal revascularization. In the left leg knee there the anterior tibial or posterior tibial arteries seen at mid level but reconstituted flow is seen distally. We were not able to see proximal anterior tibial and proximal posterior tibial artery stenoses as noted previously. Monophasic arterial Doppler waveforms are noted in the right distal anterior and posterior tibial arteries as well as in the proximal anterior tibial artery on the left and the left distal anterior and posterior tibial arteries. Otherwise arterial waveforms are biphasic. Right lower extremity arterial Doppler velocity chart: Right ENERGY EFFICIENCY ENGINEER PSV 81 cm/S Profundal 79-100 Proximal SFA 67 Mid SFA 57 Distal SFA 60/116 Popliteal 34 Proximal FAMILIA 35 Tibial-peroneal trunk 33 Proximal SLOT MACHINE FLOOR PERSON 30 Distal SLOT MACHINE FLOOR PERSON 19 Distal FAMILIA 27 Left lower extremity arterial Doppler velocity chart: Left ENERGY EFFICIENCY ENGINEER PSV 94 cm/S Profundal 133/74 Proximal SFA 61 Mid SFA 67 Distal SFA 53 Popliteal 60 Proximal FAMILIA 14 Tibial-peroneal trunk 39 Proximal SLOT MACHINE FLOOR PERSON 55 Distal SLOT MACHINE FLOOR PERSON 35 Distal FAMILIA 26 IMPRESSION: Extensive atherosclerotic plaquing with calf vessel occlusions as above. <Electronically signed by Freddie Leahy > 01/27/21 [id number]
== END ==
LOC: M RAD 10:32
PROVIDERS: ATTEND Surgery Vascular Surgery
DX: I70.213 Atherosclerosis of native arteries of extremities with intermittent claudication, bilateral legs (principal)

== ENCOUNTER → 2021-03-29 | Outpatient (REF) | payer MEDICARE ==
[~2021-03-29] MED LIST changes: -IBUP200T45 PO; +IBUP200T46 PO
[2021-03-30 13:13] LABS: ALBUMIN 4.4 GM/DL (3.2-5.2); ALT/SGPT 34 U/L (12-78); BILIRUBIN,TOTAL 0.3 MG/DL (0.2-1.0); BLOOD UREA NITROGEN 24 MG/DL (7-18); CALCIUM LEVEL 10.4 MG/DL (8.8-10.2); CARBON DIOXIDE LEVEL 25 MEQ/L (21-32); CHLORIDE LEVEL 103 MEQ/L (98-107); CREATININE FOR GFR 1.15 MG/DL (0.70-1.30); GLOMERULAR FILTRATION RATE > 60.0 (>35); GLUCOSE, FASTING 166 MG/DL (70-100); SODIUM LEVEL 136 MEQ/L (136-145); TOTAL PROTEIN 8.4 GM/DL (6.4-8.2)
== END ==
LOC: M SFHCCLAY 14:55
PROVIDERS: ATTEND Family Medicine
DX: E11.22 Type 2 diabetes mellitus with diabetic chronic kidney disease (principal)
CPT/HCPCS: 80053; 83036; G0463

== ENCOUNTER → 2021-07-04 | Outpatient (REF) | payer MEDICARE ==
[2021-07-04 18:29] LABS: ALBUMIN 4.3 GM/DL (3.2-5.2); ALT/SGPT 41 U/L (12-78); BILIRUBIN,TOTAL 0.4 MG/DL (0.2-1.0); BLOOD UREA NITROGEN 23 MG/DL (7-18); CALCIUM LEVEL 10.4 MG/DL (8.8-10.2); CARBON DIOXIDE LEVEL 30 MEQ/L (21-32); CHLORIDE LEVEL 102 MEQ/L (98-107); CREATININE FOR GFR 1.15 MG/DL (0.70-1.30); GLOMERULAR FILTRATION RATE > 60.0 (>35); GLUCOSE, FASTING 194 MG/DL (70-100); POTASSIUM SERUM 4.9 MEQ/L (3.5-5.1); SODIUM LEVEL 136 MEQ/L (136-145); TOTAL PROTEIN 8.2 GM/DL (6.4-8.2)
== END ==
LOC: M SFHCCLAY 10:50
PROVIDERS: ATTEND Family Medicine
DX: E11.22 Type 2 diabetes mellitus with diabetic chronic kidney disease (principal); N18.31 Chronic kidney disease, stage 3a

== ENCOUNTER → 2021-09-26 | Outpatient (REF) | payer MEDICARE ==
[2021-09-26 17:03] LABS: ALT/SGPT 30 U/L (12-78); BILIRUBIN,TOTAL 0.4 MG/DL (0.2-1.0); BLOOD UREA NITROGEN 23 MG/DL (7-18); CALCIUM LEVEL 10.5 MG/DL (8.8-10.2); CARBON DIOXIDE LEVEL 26 MEQ/L (21-32); CHLORIDE LEVEL 103 MEQ/L (98-107); CREATININE FOR GFR 1.14 MG/DL (0.70-1.30); GLOMERULAR FILTRATION RATE > 60.0 (>35); GLUCOSE, FASTING 268 MG/DL (70-100); POTASSIUM SERUM 4.8 MEQ/L (3.5-5.1); SODIUM LEVEL 137 MEQ/L (136-145); TOTAL PROTEIN 7.9 GM/DL (6.4-8.2)
[2021-09-26 17:42] LABS: HEMOGLOBIN A1c 8.3 %
== END ==
LOC: M SFHCCLAY 09:57
PROVIDERS: ATTEND Family Medicine
DX: E11.22 Type 2 diabetes mellitus with diabetic chronic kidney disease (principal)

== ENCOUNTER → 2021-09-26 | Outpatient (CLI) | payer MEDICARE | LOC: M CLY 10:10 | PROVIDERS: ATTEND Family Medicine | DX: M17.0 Bilateral primary osteoarthritis of knee (principal) ==

== ENCOUNTER → 2022-02-01 | Outpatient (CLI) | payer MEDICARE | LOC: M SOG 08:02 | PROVIDERS: ATTEND Orthopaedic Surgery Adult Reconstructive Orthopaedic Surgery | DX: M25.762 Osteophyte, left knee (principal); M25.861 Other specified joint disorders, right knee; M25.561 Pain in right knee; M25.562 Pain in left knee ==

== ENCOUNTER → 2022-02-02 | Outpatient (REF) | payer MEDICARE ==
[2022-02-02 17:06] LABS: ALBUMIN 4.2 GM/DL (3.2-5.2); ALT/SGPT 37 U/L (12-78); BILIRUBIN,TOTAL 0.4 MG/DL (0.2-1.0); BLOOD UREA NITROGEN 21 MG/DL (7-18); CALCIUM LEVEL 10.3 MG/DL (8.8-10.2); CARBON DIOXIDE LEVEL 28 MEQ/L (21-32); CHLORIDE LEVEL 101 MEQ/L (98-107); CREATININE FOR GFR 1.05 MG/DL (0.70-1.30); GLOMERULAR FILTRATION RATE > 60.0 (>35); GLUCOSE, FASTING 131 MG/DL (70-100); POTASSIUM SERUM 4.6 MEQ/L (3.5-5.1); SODIUM LEVEL 133 MEQ/L (136-145); TOTAL PROTEIN 7.7 GM/DL (6.4-8.2)
[2022-02-02 19:02] LABS: HEMOGLOBIN A1c 7.8 %
== END ==
LOC: M SFHCCLAY 10:43
PROVIDERS: ATTEND Family Medicine
DX: E11.22 Type 2 diabetes mellitus with diabetic chronic kidney disease (principal)

== ENCOUNTER → 2022-04-03 | Outpatient (REF) | payer MEDICARE ==
[~2022-04-03] MED LIST changes: -[UNRECOGNIZED DRUG - CODE] PO; +[UNRECOGNIZED DRUG - OTHER] PO
[2022-04-03 18:20] LABS: CHLORIDE LEVEL 101 MMOL/L (98-107); SODIUM LEVEL 136 MMOL/L (136-145)
[2022-04-03 18:21] LABS: ALBUMIN 4.3 G/DL (3.2-5.2); CARBON DIOXIDE LEVEL 22 MMOL/L (20-31)
[2022-04-03 18:26] LABS: BLOOD UREA NITROGEN 23 MG/DL (9-23); GLUCOSE, FASTING 209 MG/DL (74-106)
[2022-04-03 18:27] LABS: ALKALINE PHOSPHATASE 56 U/L (46-116)
[2022-04-03 18:28] LABS: ALT/SGPT 30 U/L (7.0-40); AST/SGOT 22 U/L (<34); BILIRUBIN,TOTAL 0.3 MG/DL (0.3-1.2); CREATININE FOR GFR 0.83 MG/DL (0.70-1.30); GLOMERULAR FILTRATION RATE > 60.0 (>35); TOTAL PROTEIN 7.6 G/DL (5.7-8.2)
[2022-04-03 18:29] LABS: POTASSIUM SERUM 4.4 MMOL/L (3.5-5.1)
[2022-04-03 20:09] LABS: HEMOGLOBIN A1c 8.1 % (4.0-6.0)
== END ==
LOC: M SFHCCLAY 10:04
PROVIDERS: ATTEND Family Medicine
DX: E11.22 Type 2 diabetes mellitus with diabetic chronic kidney disease (principal)

== ENCOUNTER 2022-11-10 17:27 | Inpatient (IN) | payer MEDICARE ==
[~2022-11-10] VITALS: Ht 182.9 cm; Wt 77.7 kg
[2022-11-10] MEDS ORDERED: METF-877 PO (17:42)
[2022-11-10 18:38] LABS: BASO % 0.4 % (0.0-1.0); EOS # 0.1 10^3/uL (0.0-0.5); EOS % 0.7 % (0.0-3.0); HEMATOCRIT 40.5 % (42.0-52.0); HEMOGLOBIN 13.4 g/dl (13.5-17.5); LYMPH # 1.9 10^3/uL (1.5-5.0); MEAN CORPUSCULAR HEMOGLOBIN 30.1 pg (27.0-33.0); MEAN CORPUSCULAR HGB CONC 33.1 g/dl (32.0-36.5); MONO # 0.8 10^3/uL (0.0-0.8); MONO % 10.2 % (2.0-8.0); NEUTROPHILS # 5.4 10^3/uL (1.5-8.5); NEUTROPHILS % 65.5 % (36.0-66.0); PLATELET COUNT, AUTOMATED 401 10^3/uL (150-450); RED BLOOD COUNT 4.45 10^6/uL (4.30-6.10); WHITE BLOOD COUNT 8.2 10^3/uL (4.0-10.0)
[2022-11-10 19:02] LABS: BLOOD UREA NITROGEN 23 MG/DL (9-23); CARBON DIOXIDE LEVEL 25 MMOL/L (20-31); CHLORIDE LEVEL 100 MMOL/L (98-107); CREATININE FOR GFR 0.97 MG/DL (0.70-1.30); GLOMERULAR FILTRATION RATE > 60.0 (>35); GLUCOSE, FASTING 125 MG/DL (74-106); POTASSIUM SERUM 4.5 MMOL/L (3.5-5.1); SODIUM LEVEL 134 MMOL/L (136-145)
[2022-11-10 20:18] LABS: ERYTHROCYTE SEDIMENTATION RATE 91 mm/hr (0-20)
[2022-11-10] MEDS ORDERED: VANCOMYCIN HCL 750 MG, VIAL MATE ADAPTER 1 EACH in D5W 250 ML IV ONE ×2 (22:00→23:00)
[2022-11-10] MEDS ORDERED: VANCOMYCIN HCL 1,500 MG in NS 250 ML IV ONE (22:05)
[2022-11-10] MEDS ORDERED: SPIR-10 PO (22:45)
[2022-11-10] MEDS ORDERED: METO1TAB87 PO (22:45)
[2022-11-10] MEDS ORDERED: ASPI81TA26 PO (22:45)
[2022-11-10] MEDS ORDERED: LOPI600T PO (22:45)
[2022-11-10] MEDS ORDERED: AMLO1TAB25 PO (22:45)
[2022-11-10] MEDS ORDERED: HOME MED LIST COMPLETE! XX SCH (22:50)
[2022-11-10 23:08] LABS: RSV AMPLIFICATION NEGATIVE (NEGATIVE)
[2022-11-10] MEDS ORDERED: DEXTROSE 50% 50ML SYRINGE IV PRN (23:35)
[2022-11-10] MEDS ORDERED: GLUCOSE 4GM CHEW TABLET PO PRN (23:35)
[2022-11-10] MEDS ORDERED: GLUCAGON INJ 1MG VIAL SC PRN (23:35)
[2022-11-11 01:27] VITALS: BP 137/67; TEMP 98.4; O2SAT 96
[2022-11-11 05:32] VITALS: BP 138/68; TEMP 98.8; O2SAT 95
[2022-11-11 06:09] LABS: BASO % 0.5 % (0.0-1.0); EOS # 0.1 10^3/uL (0.0-0.5); EOS % 1.3 % (0.0-3.0); HEMATOCRIT 37.4 % (42.0-52.0); HEMOGLOBIN 12.5 g/dl (13.5-17.5); LYMPH # 1.4 10^3/uL (1.5-5.0); LYMPH % 22.7 % (24.0-44.0); MEAN CORPUSCULAR HEMOGLOBIN 29.7 pg (27.0-33.0); MEAN CORPUSCULAR HGB CONC 33.4 g/dl (32.0-36.5); MEAN CORPUSCULAR VOLUME 88.8 fl (80.0-96.0); MONO # 0.7 10^3/uL (0.0-0.8); MONO % 11.7 % (2.0-8.0); NEUTROPHILS % 63.5 % (36.0-66.0); PLATELET COUNT, AUTOMATED 345 10^3/uL (150-450); RED BLOOD COUNT 4.21 10^6/uL (4.30-6.10); WHITE BLOOD COUNT 6.3 10^3/uL (4.0-10.0)
[2022-11-11] MEDS: HEPARIN SOD (PORCINE) 5000UNITS/ML 1ML VIAL/SYRINGE SQ SCH ×2 (06:14→17:39)
[2022-11-11 06:27] LABS: ALBUMIN 3.1 G/DL (3.2-5.2); ALKALINE PHOSPHATASE 82 U/L (46-116); ALT/SGPT 31 U/L (7.0-40); AST/SGOT 28 U/L (<34); BILIRUBIN,TOTAL 0.4 MG/DL (0.3-1.2); BLOOD UREA NITROGEN 20 MG/DL (9-23); CALCIUM LEVEL 10.1 MG/DL (8.3-10.6); CARBON DIOXIDE LEVEL 28 MMOL/L (20-31); CHLORIDE LEVEL 101 MMOL/L (98-107); CREATININE FOR GFR 0.82 MG/DL (0.70-1.30); GLOMERULAR FILTRATION RATE > 60.0 (>35); GLUCOSE, FASTING 203 MG/DL (74-106); MAGNESIUM LEVEL 1.8 MG/DL (1.8-2.4); POTASSIUM SERUM 4.5 MMOL/L (3.5-5.1); SODIUM LEVEL 136 MMOL/L (136-145); TOTAL PROTEIN 7.1 G/DL (5.7-8.2)
[2022-11-11] MEDS: ASPIRIN 81MG ENTERIC TABLET PO SCH (08:45)
[2022-11-11] MEDS: VANCOMYCIN HCL 1,000 MG, VIAL MATE ADAPTER 1 EACH in D5W 250 ML IV SCH ×2 (08:45→21:16)
[2022-11-11] MEDS: METOPROLOL TART 12.5 MG PER 1/2 TAB PO SCH (08:45)
[2022-11-11] MEDS: SPIRONOLACTONE 25 MG TAB PO SCH (08:45)
[2022-11-11] MEDS: INSULIN LISPRO (NovoLOG) PER UNIT SC SCH ×3 (08:45→17:40)
[2022-11-11] MEDS: amLODIPine 5 MG TAB PO SCH (08:45)
[2022-11-11 14:00] VITALS: BP 128/57; TEMP 97.5; O2SAT 97
[2022-11-11 20:45] VITALS: BP 129/57; TEMP 98.6; O2SAT 96
[2022-11-11] MEDS ORDERED: LEVEMIR (INSULIN DETEMIR) 1 UNITS/0.01ML SC SCH (21:00)
[2022-11-11] MEDS ORDERED: INSULIN LISPRO (NovoLOG) PER UNIT SC SCH (21:00)
[2022-11-12] MEDS: HEPARIN SOD (PORCINE) 5000UNITS/ML 1ML VIAL/SYRINGE SQ SCH (05:35)
[2022-11-12 06:15] VITALS: BP 137/83; TEMP 98.6; O2SAT 97
[2022-11-12 08:13] LABS: BASO % 0.4 % (0.0-1.0); EOS # 0.1 10^3/uL (0.0-0.5); EOS % 1.1 % (0.0-3.0); HEMATOCRIT 40.1 % (42.0-52.0); HEMOGLOBIN 13.6 g/dl (13.5-17.5); LYMPH # 1.6 10^3/uL (1.5-5.0); MEAN CORPUSCULAR HEMOGLOBIN 30.2 pg (27.0-33.0); MEAN CORPUSCULAR HGB CONC 33.9 g/dl (32.0-36.5); MEAN CORPUSCULAR VOLUME 88.9 fl (80.0-96.0); MONO # 0.6 10^3/uL (0.0-0.8); MONO % 7.8 % (2.0-8.0); NEUTROPHILS # 5.2 10^3/uL (1.5-8.5); NEUTROPHILS % 69.4 % (36.0-66.0); PLATELET COUNT, AUTOMATED 396 10^3/uL (150-450); RED BLOOD COUNT 4.51 10^6/uL (4.30-6.10); WHITE BLOOD COUNT 7.4 10^3/uL (4.0-10.0)
[2022-11-12] MEDS: VANCOMYCIN HCL 1,000 MG, VIAL MATE ADAPTER 1 EACH in D5W 250 ML IV SCH (08:43)
[2022-11-12] MEDS: METOPROLOL TART 12.5 MG PER 1/2 TAB PO SCH (08:44)
[2022-11-12] MEDS: INSULIN LISPRO (NovoLOG) PER UNIT SC SCH ×2 (08:44→13:06)
[2022-11-12] MEDS: ASPIRIN 81MG ENTERIC TABLET PO SCH (08:44)
[2022-11-12] MEDS: SPIRONOLACTONE 25 MG TAB PO SCH (08:44)
[2022-11-12] MEDS: amLODIPine 5 MG TAB PO SCH (08:44)
[2022-11-12 08:56] LABS: C REACTIVE PROTEIN QUANTITATIV < 0.40 MG/DL (<1.0)
[2022-11-12 08:57] LABS: BLOOD UREA NITROGEN 15 MG/DL (9-23); CALCIUM LEVEL 9.4 MG/DL (8.3-10.6); CARBON DIOXIDE LEVEL 27 MMOL/L (20-31); CHLORIDE LEVEL 104 MMOL/L (98-107); CREATININE FOR GFR 0.83 MG/DL (0.70-1.30); GLOMERULAR FILTRATION RATE > 60.0 (>35); GLUCOSE, FASTING 177 MG/DL (74-106); POTASSIUM SERUM 4.5 MMOL/L (3.5-5.1); SODIUM LEVEL 137 MMOL/L (136-145)
[2022-11-12] MEDS ORDERED: DOXY100C3 PO (13:39)
[2022-11-12] MEDS ORDERED: PROBCAP14 PO (13:39)
[2022-11-12] MEDS ORDERED: AMLO1TAB25 PO (13:41)
[2022-11-12 14:00] VITALS: TEMP 97.9; O2SAT 98
== END 2022-11-12 16:22 | disposition home or self-care (01) | DRG 617 ==
LOC: M ED 17:27 → M ED INP 23:33 → M MSPAV 11-11 01:09
PROVIDERS: ADMIT Family Medicine; ATTEND Internal Medicine Nephrology
PROC: 0Y6U0Z2 Detachment at Left 3rd Toe, Mid, Open Approach (ICD-10-PCS; principal; 2022-11-11)
DX: E11.69 Type 2 diabetes mellitus with other specified complication (principal); M86.8X7 Other osteomyelitis, ankle and foot; L03.116 Cellulitis of left lower limb; E78.5 Hyperlipidemia, unspecified; I25.10 Atherosclerotic heart disease of native coronary artery without angina pectoris; I11.0 Hypertensive heart disease with heart failure; I50.9 Heart failure, unspecified; E11.51 Type 2 diabetes mellitus with diabetic peripheral angiopathy without gangrene; Z85.820 Personal history of malignant melanoma of skin; Z85.828 Personal history of other malignant neoplasm of skin; Z95.2 Presence of prosthetic heart valve; Z88.0 Allergy status to penicillin; Z88.8 Allergy status to other drugs, medicaments and biological substances; Z79.899 Other long term (current) drug therapy; Z79.82 Long term (current) use of aspirin; Z79.4 Long term (current) use of insulin; Z95.1 Presence of aortocoronary bypass graft

== ENCOUNTER → 2023-06-04 | Outpatient (REF) | payer MEDICARE ==
[~2023-06-04] MED LIST changes: +DOXY100C3 PO; +GLIP5TAB17 PO; -GLIP5TAB8 PO; +LOPI600T PO; +PROBCAP14 PO
[2023-06-04 12:43] LABS: HEMOGLOBIN A1c 7.6 % (4.0-6.0)
[2023-06-04 12:46] LABS: ALBUMIN 4.1 G/DL (3.2-5.2); ALKALINE PHOSPHATASE 63 U/L (46-116); ALT/SGPT 32 U/L (7.0-40); AST/SGOT 22 U/L (<34); BILIRUBIN,TOTAL 0.3 MG/DL (0.3-1.2); BLOOD UREA NITROGEN 20 MG/DL (9-23); CALCIUM LEVEL 10.3 MG/DL (8.3-10.6); CARBON DIOXIDE LEVEL 29 MMOL/L (20-31); CHLORIDE LEVEL 105 MMOL/L (98-107); CREATININE FOR GFR 0.92 MG/DL (0.70-1.30); GLOMERULAR FILTRATION RATE > 60.0 (>35); GLUCOSE, FASTING 65 MG/DL (74-106); SODIUM LEVEL 137 MMOL/L (136-145); TOTAL PROTEIN 7.5 G/DL (5.7-8.2)
== END ==
LOC: M SFHCCLAY 09:06
PROVIDERS: ATTEND Family Medicine
DX: E11.22 Type 2 diabetes mellitus with diabetic chronic kidney disease (principal)

== ENCOUNTER → 2023-10-19 | Outpatient (REF) | payer MEDICARE ==
[~2023-10-19] MED LIST changes: -ASPI-161 PO; +ASPI-615 PO
== END ==
LOC: M SFHCCLAY 09:24
PROVIDERS: ATTEND Physician Assistant
DX: L08.9 Local infection of the skin and subcutaneous tissue, unspecified (principal)

== ENCOUNTER 2023-10-21 12:00 | Emergency (ER) | payer MEDICARE ==
[~2023-10-21] VITALS: Ht 182.9 cm; Wt 78.3 kg
[2023-10-21 12:55] LABS: BASO % 0.2 % (0.0-1.0); EOS % 0.2 % (0.0-3.0); HEMATOCRIT 39.5 % (42.0-52.0); HEMOGLOBIN 13.6 g/dl (13.5-17.5); LYMPH # 1.1 10^3/uL (1.5-5.0); LYMPH % 12.7 % (24.0-44.0); MEAN CORPUSCULAR HEMOGLOBIN 30.8 pg (27.0-33.0); MEAN CORPUSCULAR HGB CONC 34.4 g/dl (32.0-36.5); MEAN CORPUSCULAR VOLUME 89.6 fl (80.0-96.0); MONO # 0.3 10^3/uL (0.0-0.8); MONO % 3.4 % (2.0-8.0); NEUTROPHILS # 6.8 10^3/uL (1.5-8.5); NEUTROPHILS % 83.1 % (36.0-66.0); PLATELET COUNT, AUTOMATED 267 10^3/uL (150-450); RED BLOOD COUNT 4.41 10^6/uL (4.30-6.10); WHITE BLOOD COUNT 8.2 10^3/uL (4.0-10.0)
[2023-10-21 13:09] LABS: ERYTHROCYTE SEDIMENTATION RATE 80 mm/hr (0-20)
[2023-10-21 15:08] VITALS: BP 135/66; TEMP 97.9; O2SAT 98
[2023-10-21] MEDS: ACETAMINOPHEN 500 MG TAB PO ONE (15:14)
== END 2023-10-21 15:25 | disposition home or self-care (01) ==
LOC: M ED 12:00
DX: L02.413 Cutaneous abscess of right upper limb (principal); L03.113 Cellulitis of right upper limb; E11.9 Type 2 diabetes mellitus without complications; Z79.4 Long term (current) use of insulin; Z79.899 Other long term (current) drug therapy; Z88.0 Allergy status to penicillin; Z88.1 Allergy status to other antibiotic agents; Z88.8 Allergy status to other drugs, medicaments and biological substances

== ENCOUNTER 2023-12-23 09:15 | Emergency (ER) | payer MEDICARE ==
[~2023-12-23] VITALS: Ht 182.9 cm; Wt 79.0 kg
[2023-12-23] MEDS: NS 500 ML IV ONE (09:38)
[2023-12-23 09:51] LABS: BASO % 0.4 % (0.0-1.0); EOS # 0.1 10^3/uL (0.0-0.5); HEMATOCRIT 37.7 % (42.0-52.0); HEMOGLOBIN 12.6 g/dl (13.5-17.5); LYMPH # 1.7 10^3/uL (1.5-5.0); LYMPH % 37.2 % (24.0-44.0); MEAN CORPUSCULAR HEMOGLOBIN 30.7 pg (27.0-33.0); MEAN CORPUSCULAR HGB CONC 33.4 g/dl (32.0-36.5); MONO # 0.4 10^3/uL (0.0-0.8); MONO % 8.5 % (2.0-8.0); NEUTROPHILS # 2.3 10^3/uL (1.5-8.5); NEUTROPHILS % 51.5 % (36.0-66.0); PLATELET COUNT, AUTOMATED 241 10^3/uL (150-450); WHITE BLOOD COUNT 4.5 10^3/uL (4.0-10.0)
[2023-12-23] MEDS ORDERED: ISOVUE-370 76% 100ML VIAL As Ordered ONE (09:59)
[2023-12-23 10:09] LABS: INR 1.06; PARTIAL THROMBOPLASTIN TIME 33.6 SECONDS (24.8-34.2); PROTHROMBIN TIME 13.5 SECONDS (12.5-14.5)
[2023-12-23 10:12] LABS: CK-MB VALUE MASS 2.3 NG/ML (<3.6)
[2023-12-23 10:15] LABS: FREE T4 0.94 NG/DL (0.89-1.76); THYROID STIMULATING HORMONE 2.272 uIU/ML (0.55-4.78)
[2023-12-23 10:18] LABS: LIPASE 33 U/L (12-53)
[2023-12-23 10:20] LABS: ALBUMIN 3.8 G/DL (3.2-5.2); ALKALINE PHOSPHATASE 69 U/L (46-116); ALT/SGPT 19 U/L (7.0-40); AST/SGOT 13 U/L (<34); BILIRUBIN,DIRECT 0.1 MG/DL (<0.4); BILIRUBIN,TOTAL 0.4 MG/DL (0.3-1.2); BLOOD UREA NITROGEN 25 MG/DL (9-23); CALCIUM LEVEL 9.8 MG/DL (8.3-10.6); CARBON DIOXIDE LEVEL 24 MMOL/L (20-31); CHLORIDE LEVEL 109 MMOL/L (98-107); CPK CREATINE PHOSPHOKINASE 122 U/L (46-171); CREATININE FOR GFR 0.95 MG/DL (0.70-1.30); GLOMERULAR FILTRATION RATE > 60.0 (>35); GLUCOSE, FASTING 83 MG/DL (74-106); MB/CK RELATIVE INDEX 1.88 (< OR =4); POTASSIUM SERUM 4.3 MMOL/L (3.5-5.1); SODIUM LEVEL 141 MMOL/L (136-145)
[2023-12-23 11:51] LABS: CK-MB VALUE MASS 2.7 NG/ML (<3.6)
[2023-12-23 11:58] LABS: MB/CK RELATIVE INDEX 2.01 (< OR =4)
[2023-12-23] MEDS ORDERED: OMEP-173 PO (12:45)
[2023-12-23 12:52] LABS: CK-MB VALUE MASS 2.2 NG/ML (<3.6)
[2023-12-23 12:55] LABS: MB/CK RELATIVE INDEX 1.88 (< OR =4)
[2023-12-23 13:17] VITALS: BP 142/73; TEMP 96.7; O2SAT 96
== END 2023-12-23 13:30 | disposition home or self-care (01) ==
LOC: M ED 09:15 → EDBD 09:15 → M ED 13:30
DX: R07.9 Chest pain, unspecified (principal); K20.90 Esophagitis, unspecified without bleeding; I51.7 Cardiomegaly; I10 Essential (primary) hypertension; E10.9 Type 1 diabetes mellitus without complications; E78.5 Hyperlipidemia, unspecified; I25.2 Old myocardial infarction; I48.91 Unspecified atrial fibrillation; Z95.5 Presence of coronary angioplasty implant and graft; Z79.4 Long term (current) use of insulin; Z79.82 Long term (current) use of aspirin; Z79.899 Other long term (current) drug therapy; Z88.0 Allergy status to penicillin; Z88.1 Allergy status to other antibiotic agents; Z88.8 Allergy status to other drugs, medicaments and biological substances
CPT/HCPCS: 71045; 71275; 80047; 80048; 80076; 82550; 82553; 83690; 84439; 84443; 84484; 85025; 85610; 85730; 93005; 93041; 94760; 99285; Q9967

== ENCOUNTER → 2024-02-26 | Outpatient (REF) | payer MEDICARE ==
[~2024-02-26] MED LIST changes: +OMEP-173 PO
[2024-02-26 19:33] LABS: BASO % 0.3 % (0.0-1.0); EOS # 0.1 10^3/uL (0.0-0.5); EOS % 1.5 % (0.0-3.0); HEMOGLOBIN 13.2 g/dl (13.5-17.5); LYMPH # 1.8 10^3/uL (1.5-5.0); MEAN CORPUSCULAR HEMOGLOBIN 30.3 pg (27.0-33.0); MEAN CORPUSCULAR HGB CONC 33.8 g/dl (32.0-36.5); MEAN CORPUSCULAR VOLUME 89.4 fl (80.0-96.0); MONO # 0.5 10^3/uL (0.0-0.8); MONO % 7.4 % (2.0-8.0); NEUTROPHILS # 4.2 10^3/uL (1.5-8.5); NEUTROPHILS % 63.5 % (36.0-66.0); PLATELET COUNT, AUTOMATED 349 10^3/uL (150-450); RED BLOOD COUNT 4.36 10^6/uL (4.30-6.10); WHITE BLOOD COUNT 6.6 10^3/uL (4.0-10.0)
[2024-02-26 19:41] LABS: HEMOGLOBIN A1c 6.9 % (4.0-6.0)
[2024-02-26 20:18] LABS: ALBUMIN 3.9 G/DL (3.2-5.2); ALKALINE PHOSPHATASE 85 U/L (46-116); ALT/SGPT 50 U/L (7.0-40); AST/SGOT 30 U/L (<34); BILIRUBIN,TOTAL 0.2 MG/DL (0.3-1.2); BLOOD UREA NITROGEN 22 MG/DL (9-23); CALCIUM LEVEL 10.6 MG/DL (8.3-10.6); CARBON DIOXIDE LEVEL 26 MMOL/L (20-31); CHLORIDE LEVEL 104 MMOL/L (98-107); CREATININE FOR GFR 0.94 MG/DL (0.70-1.30); GLOMERULAR FILTRATION RATE > 60.0 (>35); GLUCOSE, FASTING 180 MG/DL (74-106); POTASSIUM SERUM 4.6 MMOL/L (3.5-5.1); SODIUM LEVEL 136 MMOL/L (136-145); TOTAL PROTEIN 7.7 G/DL (5.7-8.2)
== END ==
LOC: M SFHCCLAY 14:40
PROVIDERS: ATTEND Physician Assistant
DX: Z01.818 Encounter for other preprocedural examination (principal); E11.22 Type 2 diabetes mellitus with diabetic chronic kidney disease

== ENCOUNTER 2024-03-04 06:42 | Day surgery (SDC) | payer MEDICARE ==
[~2024-03-04] VITALS: Ht 182.9 cm; Wt 76.5 kg
[~2024-03-04 06:42] MED LIST changes: +NS 250 ML IV ONE
[2024-03-04] MEDS ORDERED: LIDOCAINE 2% 100MG/5ML SDV (FOR ANES.) As Ordered ONE (06:45)
[2024-03-04] MEDS ORDERED: fentaNYL 100 MCG/2 ML INJECTION As Ordered ONE (06:46)
[2024-03-04] MEDS ORDERED: propofoL 200 MG/20 ML VIAL As Ordered ONE (06:46)
[2024-03-04] MEDS ORDERED: DEXTROSE 50% 50ML SYRINGE As Ordered ONE (07:11)
[2024-03-04] MEDS: DEXTROSE 50% 50ML SYRINGE IV STA (07:13)
[2024-03-04 07:39] VITALS: TEMP 97.3
[2024-03-04 08:03] VITALS: BP 120/63; O2SAT 95
== END 2024-03-04 08:18 | disposition home or self-care (01) ==
LOC: M OPP 06:42
PROVIDERS: ATTEND Surgery
DX: K22.2 Esophageal obstruction (principal); K29.70 Gastritis, unspecified, without bleeding; I25.10 Atherosclerotic heart disease of native coronary artery without angina pectoris; I10 Essential (primary) hypertension; E11.9 Type 2 diabetes mellitus without complications; K21.9 Gastro-esophageal reflux disease without esophagitis; M19.90 Unspecified osteoarthritis, unspecified site; Z87.891 Personal history of nicotine dependence; Z88.0 Allergy status to penicillin; Z88.1 Allergy status to other antibiotic agents; Z88.8 Allergy status to other drugs, medicaments and biological substances; Z79.4 Long term (current) use of insulin; Z79.82 Long term (current) use of aspirin; Z79.84 Long term (current) use of oral hypoglycemic drugs; Z79.899 Other long term (current) drug therapy
CPT/HCPCS: 43239; 43249; 88305; J3010

== ENCOUNTER → 2024-05-19 | Outpatient (REF) | payer MEDICARE ==
[~2024-05-19] MED LIST changes: -NS 250 ML IV ONE
[2024-05-19 17:03] LABS: ALKALINE PHOSPHATASE 67 U/L (40-129); ALT/SGPT 25 U/L (7.0-40); AST/SGOT 18 U/L (<34); BILIRUBIN,TOTAL 0.3 MG/DL (0.3-1.2); BLOOD UREA NITROGEN 24 MG/DL (9-23); CALCIUM LEVEL 10.1 MG/DL (8.3-10.6); CARBON DIOXIDE LEVEL 27 MMOL/L (20-31); CHLORIDE LEVEL 104 MMOL/L (98-107); CREATININE FOR GFR 0.85 MG/DL (0.70-1.30); GLOMERULAR FILTRATION RATE > 60.0 (>35); GLUCOSE, FASTING 192 MG/DL (74-106); POTASSIUM SERUM 4.7 MMOL/L (3.5-5.1); SODIUM LEVEL 140 MMOL/L (136-145); TOTAL PROTEIN 7.3 G/DL (5.7-8.2)
[2024-05-19 17:36] LABS: HEMOGLOBIN A1c 7.5 % (4.0-6.0)
== END ==
LOC: M SFHCCLAY 09:30
PROVIDERS: ATTEND Family Medicine
DX: E11.22 Type 2 diabetes mellitus with diabetic chronic kidney disease (principal)

== ENCOUNTER → 2024-08-07 | Outpatient (REF) | payer MEDICARE ==
[~2024-08-07] MED LIST changes: +DULO1CAP5 PO
[2024-08-07 12:23] LABS: HEMATOCRIT 39.3 % (42.0-52.0); HEMOGLOBIN 13.2 g/dl (13.5-17.5); MEAN CORPUSCULAR HEMOGLOBIN 29.9 pg (27.0-33.0); MEAN CORPUSCULAR HGB CONC 33.6 g/dl (32.0-36.5); MEAN CORPUSCULAR VOLUME 88.9 fl (80.0-96.0); PLATELET COUNT, AUTOMATED 331 10^3/uL (150-450); RED BLOOD COUNT 4.42 10^6/uL (4.30-6.10); WHITE BLOOD COUNT 7.1 10^3/uL (4.0-10.0)
[2024-08-07 12:47] LABS: ALBUMIN 3.9 G/DL (3.2-5.2); ALKALINE PHOSPHATASE 93 U/L (40-129); ALT/SGPT 24 U/L (7.0-40); AST/SGOT 20 U/L (<34); BILIRUBIN,TOTAL 0.3 MG/DL (0.3-1.2); BLOOD UREA NITROGEN 23 MG/DL (9-23); CARBON DIOXIDE LEVEL 29 MMOL/L (20-31); CHLORIDE LEVEL 103 MMOL/L (98-107); CREATININE FOR GFR 1.01 MG/DL (0.70-1.30); GLOMERULAR FILTRATION RATE > 60.0 (>35); GLUCOSE, FASTING 74 MG/DL (74-106); POTASSIUM SERUM 4.5 MMOL/L (3.5-5.1); SODIUM LEVEL 140 MMOL/L (136-145); TOTAL PROTEIN 7.8 G/DL (5.7-8.2)
[2024-08-07 12:50] LABS: HEMOGLOBIN A1c 7.5 % (4.0-6.0)
== END ==
LOC: M SFHCCLAY 08:37
PROVIDERS: ATTEND Family Medicine
DX: I10 Essential (primary) hypertension (principal)

== ENCOUNTER 2024-08-13 08:18 | Day surgery (SDC) | payer MEDICARE ==
[~2024-08-13] VITALS: Ht 182.9 cm; Wt 76.7 kg
[2024-08-13] MEDS ORDERED: propofoL 200 MG/20 ML VIAL As Ordered ONE (08:56)
[2024-08-13] MEDS ORDERED: fentaNYL 100 MCG/2 ML INJECTION As Ordered ONE (08:56)
[2024-08-13] MEDS ORDERED: LR 1,000 ML IV SCH (09:25)
[2024-08-13] MEDS: ceFAZolin SODIUM 2 GM in DEXTROSE 5% (D5W) ADV/MINI-BAG 50 ML IV ONE (09:32)
[2024-08-13] MEDS: LIDOCAINE 1% MDV 20ML VIAL As Ordered ONE (09:38)
[2024-08-13 10:15] VITALS: BP 122/62; TEMP 97.3; O2SAT 97
== END 2024-08-13 10:37 | disposition home or self-care (01) ==
LOC: M SDC 08:18
PROVIDERS: ATTEND Podiatrist Foot & Ankle Surgery
DX: E11.621 Type 2 diabetes mellitus with foot ulcer (principal); L97.529 Non-pressure chronic ulcer of other part of left foot with unspecified severity; E11.22 Type 2 diabetes mellitus with diabetic chronic kidney disease; I12.9 Hypertensive chronic kidney disease with stage 1 through stage 4 chronic kidney disease, or unspecified chronic kidney disease; N18.31 Chronic kidney disease, stage 3a; I25.10 Atherosclerotic heart disease of native coronary artery without angina pectoris; E78.00 Pure hypercholesterolemia, unspecified; Z85.828 Personal history of other malignant neoplasm of skin; Z79.899 Other long term (current) drug therapy; Z79.82 Long term (current) use of aspirin; Z79.84 Long term (current) use of oral hypoglycemic drugs; Z95.1 Presence of aortocoronary bypass graft; K21.9 Gastro-esophageal reflux disease without esophagitis; Z88.8 Allergy status to other drugs, medicaments and biological substances; Z88.0 Allergy status to penicillin; Z88.1 Allergy status to other antibiotic agents; Z87.891 Personal history of nicotine dependence
CPT/HCPCS: 28308; 88300; 93005; J0665; J0690; J3010

== ENCOUNTER → 2024-11-06 | Outpatient (REF) | payer MEDICARE ==
[2024-11-06 14:54] LABS: ALT/SGPT 32.0 U/L (7.0-40); AST/SGOT 22.0 U/L (<34); CALCIUM LEVEL 9.8 MG/DL (8.3-10.6); CARBON DIOXIDE LEVEL 27.0 MMOL/L (20-31); CHLORIDE LEVEL 101.0 MMOL/L (98-107); CREATININE FOR GFR 0.91 MG/DL (0.70-1.30); GLOMERULAR FILTRATION RATE 82.1 (>35); POTASSIUM SERUM 5.0 MMOL/L (3.5-5.1); SODIUM LEVEL 139.0 MMOL/L (136-145)
[2024-11-06 14:58] LABS: ESTIMATED AVERAGE GLUCOSE 169.0 MG/DL (60-110)
== END ==
LOC: M SFHCCLAY 08:31
PROVIDERS: ATTEND Family Medicine
DX: I10 Essential (primary) hypertension (principal); E11.22 Type 2 diabetes mellitus with diabetic chronic kidney disease

== ENCOUNTER 2025-03-03 13:30 | Emergency (ER) | payer MEDICARE ==
[2025-03-03 14:31] LABS: BASO # 0.1 10^3/uL (0.0-0.2); BASO % 0.9 % (0.0-1.0); EOS # 0.1 10^3/uL (0.0-0.5); EOS % 1.6 % (0.0-3.0); LYMPH # 1.8 10^3/uL (1.5-5.0); LYMPH % 31.3 % (24.0-44.0); MONO # 0.4 10^3/uL (0.0-0.8); MONO % 6.8 % (2.0-8.0); NEUTROPHILS # 3.4 10^3/uL (1.5-8.5); NEUTROPHILS % 59.0 % (36.0-66.0); PLATELET COUNT, AUTOMATED 218 10^3/uL (150-450)
[2025-03-03 14:55] LABS: OSMOLALITY SERUM 306 MOSM/KG (280-301)
[2025-03-03 14:59] LABS: ALT/SGPT 30 U/L (7.0-40); AST/SGOT 61 U/L (<34); CALCIUM LEVEL 9.8 MG/DL (8.3-10.6); CARBON DIOXIDE LEVEL 26 MMOL/L (20-31); CHLORIDE LEVEL 101 MMOL/L (98-107); CREATININE FOR GFR 0.81 MG/DL (0.70-1.30); GLOMERULAR FILTRATION RATE 85.9 (>35); POTASSIUM SERUM 5.3 MMOL/L (3.5-5.1); SODIUM LEVEL 137 MMOL/L (136-145)
[2025-03-03 15:23] LABS: KETONE, URINE AUTO RFX NEGATIVE (NEGATIVE); LEUKOCYTE ESTERASE UR AUTO RFX NEGATIVE (NEGATIVE); MUCUS, URINE RFX SMALL (NEGATIVE); NITRITE, URINE AUTO RFX NEGATIVE (NEGATIVE); RBC, URINE AUTO RFX 0 /HPF (0-3); SQUAM EPITHELIAL CELL UR AURFX 0 /HPF (0-6); WBC, URINE AUTO RFX 4 /HPF (0-3)
[2025-03-03] MEDS ORDERED: HOME MED LIST COMPLETE! XX SCH (15:50)
[2025-03-03] MEDS ORDERED: ISOVUE-370 76% 100 ML VIAL As Ordered ONE (16:33)
[2025-03-03 17:30] VITALS: BP 137/59; TEMP 97.4; O2SAT 98
[2025-03-03] MEDS ORDERED: ASPI325T48 PO (17:41)
[2025-03-03] MEDS ORDERED: KEPP250T5 PO (17:41)
== END 2025-03-03 17:53 | disposition home or self-care (01) ==
LOC: M ED 13:30
DX: R47.01 Aphasia (principal); I66.11 Occlusion and stenosis of right anterior cerebral artery; I66.8 Occlusion and stenosis of other cerebral arteries; I25.10 Atherosclerotic heart disease of native coronary artery without angina pectoris; E11.9 Type 2 diabetes mellitus without complications; I10 Essential (primary) hypertension; E78.5 Hyperlipidemia, unspecified; M51.361 Other intervertebral disc degeneration, lumbar region with lower extremity pain only; Z95.1 Presence of aortocoronary bypass graft; Z87.891 Personal history of nicotine dependence; Z79.4 Long term (current) use of insulin; Z79.899 Other long term (current) drug therapy; Z88.0 Allergy status to penicillin; Z88.1 Allergy status to other antibiotic agents; Z88.8 Allergy status to other drugs, medicaments and biological substances
CPT/HCPCS: 70450; 70496; 70498; 71045; 80047; 80048; 80076; 81001; 82140; 83930; 84443; 85025; 93005; 99284; Q9967